=== PATIENT | female | born 1950 | race Caucasian/White ===

== ENCOUNTER 2018-10-22 17:06 | Inpatient (IN) ==
[2018-10-22] MEDS ORDERED: *HR* Metoprolol 5 MG/5 ML VIAL IVP ONE ×2 (21:15→21:17)
[2018-10-22] MEDS ORDERED: Naloxone 0.4 MG/ML INJ IVP PRN (21:28)
[2018-10-22] MEDS ORDERED: *HR* Heparin 5,000 UNIT/ML VIAL IVP PRN ×2 (21:28)
[2018-10-22] MEDS ORDERED: *HR* Heparin 5,000 UNIT/ML VIAL IVP ONE (21:28)
[2018-10-22] MEDS ORDERED: Acetaminophen 325 MG TABLET PO PRN (21:28)
[2018-10-22] MEDS ORDERED: Levalbuterol Neb 1.25 MG/3 ML IH PRN (21:28)
[2018-10-22] MEDS ORDERED: Ondansetron 4 MG/2 ML VIAL IVP PRN (21:28)
[2018-10-22] MEDS ORDERED: Heparin 25,000 UNIT/250 ML D5W 25,000 UNIT/250 ML IV.SOLN IVC SCH (21:30)
[2018-10-22] MEDS ORDERED: Vancomycin (wt based) 1,000 MG VIAL IVPB SCH (22:00)
[2018-10-22] MEDS ORDERED: 0.9 % Sodium Chloride 1,000 ML IVC SCH (22:15)
[2018-10-22 22:31] LABS: Heparin anti-factor XA UFH 0.03 IU/mL (0.30-0.70)
[2018-10-22 22:32] LABS: INR 1.6; Prothrombin Time 18.1 Seconds (9.4-12.1)
[2018-10-22 22:39] LABS: Calcium 8.8 mg/dL (8.6-10.3); Potassium 4.3 mEq/L (3.5-5.1)
[2018-10-22 22:40] LABS: Albumin 3.3 g/dL (3.5-5.7); Albumin/Globulin Ratio 1.1 (1.1-2.2); Bilirubin,Direct 0.2 mg/dL (0.0-0.2); Bilirubin,Indirect 0.3 mg/dL (0.0-1.2); Bilirubin,Total 0.5 mg/dL (0.3-1.0); Globulin 3.1 g/dL (2.4-3.5); Magnesium 1.7 mg/dL (1.6-2.6); Total Protein 6.4 g/dL (6.4-8.9)
[2018-10-22] MEDS: levETIRAcetam 250 MG TABLET PO SCH (23:36)
[2018-10-22] MEDS: 0.9 % Sodium Chloride 1,000 ML IVC SCH (23:36)
[2018-10-22] MEDS: *HR* HYDROcodone/Acet 5/325 mg TABLET PO PRN (23:36)
[2018-10-22] MEDS ORDERED: Amiodarone Premix 360 MG/200 ML BAG IVC SCH (23:45)
[2018-10-22] MEDS ORDERED: Amiodarone Premix 150 MG/100 ML BAG IVPB ONE (23:57)
[2018-10-22] MEDS ORDERED: Amiodarone Premix 360 MG/200 ML BAG IVC ONE (23:57)
[2018-10-23] MEDS ORDERED: ceFAZolin 2,000 MG in Water for inj. (sterile) 20 ML IVP ONE (00:09)
[2018-10-23] MEDS ORDERED: *HR* PHENYLEPHRINE 1,000 MCG/10 ML SYRINGE IVP ONE (00:26)
[2018-10-23] MEDS ORDERED: *HR* Etomidate 20 MG/10 ML AMPUL IVP ONE (00:26)
[2018-10-23] MEDS ORDERED: *HR* FentaNYL (PF) 250 MCG/5 ML VIAL ONE (00:26)
[2018-10-23] MEDS ORDERED: *HR* Rocuronium Bromide 50 MG/5 ML VIAL ONE (00:26)
[2018-10-23] MEDS ORDERED: *HR* Midazolam HCl 5 MG/5 ML VIAL IVP ONE (00:26)
[2018-10-23] MEDS ORDERED: *HR* Amiodarone 150 MG/3 ML VIAL IVPB ONE (00:28)
[2018-10-23] MEDS ORDERED: Amiodarone Premix 360 MG/200 ML BAG IVC ONE (00:29)
[2018-10-23] MEDS ORDERED: Heparin 1,000 UNITS/500 mL 500 ML ONE (01:02)
[2018-10-23] MEDS ORDERED: Ondansetron 4 MG/2 ML VIAL ONE (01:51)
[2018-10-23] MEDS ORDERED: Dexamethasone 4 MG/ML VIAL ONE (01:51)
[2018-10-23] MEDS ORDERED: Naloxone 0.4 MG/ML INJ IVP PRN ×5 (02:19→17:46)
[2018-10-23] MEDS ORDERED: *HR* FentaNYL (PF) 100 MCG/2 ML VIAL IVP PRN ×2 (02:22→17:46)
[2018-10-23] MEDS ORDERED: Artificial Tears SOLN 15 ML BOTTLE BOTH EYES PRN (02:34)
[2018-10-23] MEDS ORDERED: FentaNYL (PF) 1,000 MCG in 0.9 % Sodium Chloride 80 ML IVC SCH (02:45)
[2018-10-23] MEDS: tiZANidine 4 MG TABLET PO SCH ×4 (02:49→21:50)
[2018-10-23] MEDS: diazePAM 5 MG TABLET PO SCH ×2 (02:50→10:52)
[2018-10-23] MEDS: Budesonide/Formoterol 160/4.5 1 PUFF INH IH SCH ×3 (02:55→19:57)
[2018-10-23 02:57] LABS: ABG Base Excess -4 mEq/L (-2 to 3); ABG HCO3 22 mEq/L (21-27); ABG Oxygen Saturation 95 % (95-98); ABG PCO2 44 mmHg (35-45); ABG PO2 85 mmHg (85-104); ABG TCO2 23 mEq/L (20-26); Blood Gas Modality ASSIST CONTROL; Blood Gas VT 500 cc
[2018-10-23] MEDS: Piperacillin/Tazobactam 3.375 GM in 0.9 % Sodium Chloride Mini Bag 100 ML IVPB SCH ×3 (03:09→15:13)
[2018-10-23] MEDS: Artificial Tears SOLN 15 ML BOTTLE BOTH EYES SCH ×4 (04:34→16:28)
[2018-10-23 04:40] LABS: ABG Base Excess -4 mEq/L (-2 to 3); ABG HCO3 21 mEq/L (21-27); ABG Oxygen Saturation 96 % (95-98); ABG PCO2 40 mmHg (35-45); ABG PH 7.33 pH Units (7.32-7.45); ABG PO2 89 mmHg (85-104); ABG TCO2 23 mEq/L (20-26); Blood Gas Modality ASSIST CONTROL; Blood Gas VT 500 cc
[2018-10-23 04:43] LABS: Hematocrit 27.3 % (35.3-44.9); Hemoglobin 8.9 g/dL (11.5-15.4); Mean Corpuscular HGB Conc 32.6 g/dL (31.6-35.5); Mean Platelet Volume 8.8 fL (9.4-12.4); Platelet Count 368 K/mcL (140-400)
[2018-10-23 04:44] LABS: Basophils # 0.1 K/mcL (0.0-0.2); Basophils % 0.2 %; Immature Granulocytes % 0.8 % (0-4); Lymphocytes # 0.5 K/mcL (0.6-4.6); Lymphocytes % 1.9 %; Mean Corpuscular Hemoglobin 30.1 pg (28.0-33.3); Mean Corpuscular Volume 92.2 fL (83.0-100.0); Monocytes # 0.9 K/mcL (0.0-1.3); Monocytes % 3.4 %; Neutrophils # 24.6 K/mcL (1.6-8.9); Red Blood Count 2.96 M/mcL (3.82-4.97); Segmented Neutrophils % 93.7 %; White Blood Count 26.2 K/mcL (4.3-11.1)
[2018-10-23 04:51] LABS: INR 1.6; Prothrombin Time 17.9 Seconds (9.4-12.1)
[2018-10-23 04:54] LABS: Activated Partial Thrombo Time 38.5 Seconds (26.0-36.0)
[2018-10-23 05:08] LABS: Platelet Estimate Normal (Normal)
[2018-10-23] MEDS: 0.9 % Sodium Chloride 1,000 ML IVC SCH ×4 (08:07→10:54)
[2018-10-23] MEDS ORDERED: Pantoprazole 40 MG VIAL IVP SCH (09:00)
[2018-10-23] MEDS ORDERED: levoFLOXacin 750 MG/150 ML 750 MG/150 ML BAG IVPB SCH (09:00)
[2018-10-23] MEDS ORDERED: Sucralfate 1 GM TABLET PO SCH (09:00)
[2018-10-23] MEDS ORDERED: Lactobacillus 1 EACH CAP.SPRINK PO SCH (09:00)
[2018-10-23] MEDS ORDERED: Chlorhexidine Rinse 15 ML MOUTHWASH MM SCH (09:00)
[2018-10-23] MEDS ORDERED: diazePAM 5 MG TABLET PO SCH (09:00)
[2018-10-23] MEDS: *HR* HYDROcodone/Acet 5/325 mg TABLET PO PRN (10:52)
[2018-10-23] MEDS: levETIRAcetam 250 MG TABLET PO SCH ×2 (10:53→21:51)
[2018-10-23 14:44] LABS: Bilirubin,Urine Negative (Negative); Blood,Urine Moderate (Negative); Clarity,Urine Cloudy (Clear); Color,Urine Yellow (Yellow); Glucose,Urine (UA) Normal (Normal); Ketones,Urine Negative (Negative); Leukocyte Esterase,Urine Small (Negative); Nitrite,Urine Negative (Negative); Protein,Urine Trace mg/dL (Neg-Trace); Specific Gravity,Urine 1.023 (1.010-1.025); Urobilinogen,Urine Normal (Normal)
[2018-10-23 14:46] LABS: Bacteria,Urine None Seen per hpf (None-Few); Hyaline Casts,Urine None Seen per lpf (None-Few); Squamous Epithelial Cell,Urine Many per lpf (None-Few); WBC,Urine 15-30 per hpf (0-3)
[2018-10-23] MEDS ORDERED: Ondansetron 4 MG/2 ML VIAL IVP PRN (17:46)
[2018-10-23] MEDS: Sucralfate 1 GM TABLET PO SCH (21:50)
[2018-10-23] MEDS: Lactobacillus 1 EACH CAP.SPRINK PO SCH (21:50)
[2018-10-24] MEDS: Piperacillin/Tazobactam 3.375 GM in 0.9 % Sodium Chloride Mini Bag 100 ML IVPB SCH ×3 (00:36→14:49)
[2018-10-24] MEDS: *HR* HYDROcodone/Acet 5/325 mg TABLET PO PRN ×2 (01:05→12:37)
[2018-10-24 03:26] LABS: Hematocrit 24.4 % (35.3-44.9); Hemoglobin 7.9 g/dL (11.5-15.4); Lymphocytes # 0.8 K/mcL (0.6-4.6); Lymphocytes % 3.6 %; Mean Corpuscular HGB Conc 32.4 g/dL (31.6-35.5); Mean Corpuscular Hemoglobin 29.6 pg (28.0-33.3); Mean Corpuscular Volume 91.4 fL (83.0-100.0); Mean Platelet Volume 8.8 fL (9.4-12.4); Monocytes % 4.9 %; Platelet Count 354 K/mcL (140-400); Red Blood Count 2.67 M/mcL (3.82-4.97); Red Cell Distribution Width 13.2 % (11.5-14.5); Segmented Neutrophils % 90.5 %; White Blood Count 23.3 K/mcL (4.3-11.1)
[2018-10-24 03:32] LABS: Monocytes # 1.1 K/mcL (0.0-1.3); Neutrophils # 21.1 K/mcL (1.6-8.9)
[2018-10-24 03:41] LABS: BUN/Creatinine Ratio 15 (6-26); Blood Urea Nitrogen 16 mg/dL (8-23); Calcium 8.6 mg/dL (8.6-10.3); Carbon Dioxide 25 mEq/L (23-29); Chloride 98 mEq/L (98-107); Glucose 151 mg/dL (70-105); Osmolality,Calculated 278 (280-300); Potassium 4.1 mEq/L (3.5-5.1); Sodium 132 mEq/L (136-145); eGFR For African Americans > 60 (> 60); eGFR For Non-African Americans 52 (> 60)
[2018-10-24 03:52] LABS: Platelet Estimate Normal (Normal)
[2018-10-24] MEDS: Budesonide/Formoterol 160/4.5 1 PUFF INH IH SCH ×2 (07:37→19:39)
[2018-10-24] MEDS: levETIRAcetam 250 MG TABLET PO SCH ×2 (08:13→21:10)
[2018-10-24] MEDS: Sucralfate 1 GM TABLET PO SCH ×2 (08:13→21:11)
[2018-10-24] MEDS: Lactobacillus 1 EACH CAP.SPRINK PO SCH ×2 (08:13→21:11)
[2018-10-24] MEDS: diazePAM 5 MG TABLET PO SCH (08:13)
[2018-10-24] MEDS: tiZANidine 4 MG TABLET PO SCH ×3 (08:13→21:12)
[2018-10-25] MEDS: Piperacillin/Tazobactam 3.375 GM in 0.9 % Sodium Chloride Mini Bag 100 ML IVPB SCH ×4 (00:54→23:45)
[2018-10-25] MEDS: *HR* HYDROcodone/Acet 5/325 mg TABLET PO PRN ×3 (01:10→22:36)
[2018-10-25 04:52] LABS: Basophils % 0.1 %; Hemoglobin 7.4 g/dL (11.5-15.4); Immature Granulocytes % 0.8 % (0-4); Lymphocytes # 1.6 K/mcL (0.6-4.6); Lymphocytes % 9.5 %; Mean Corpuscular HGB Conc 32.2 g/dL (31.6-35.5); Mean Corpuscular Hemoglobin 29.5 pg (28.0-33.3); Mean Corpuscular Volume 91.6 fL (83.0-100.0); Mean Platelet Volume 9.1 fL (9.4-12.4); Monocytes # 0.9 K/mcL (0.0-1.3); Neutrophils # 14.5 K/mcL (1.6-8.9); Platelet Count 370 K/mcL (140-400); Red Blood Count 2.51 M/mcL (3.82-4.97); Red Cell Distribution Width 13.4 % (11.5-14.5); Segmented Neutrophils % 84.6 %; White Blood Count 17.1 K/mcL (4.3-11.1)
[2018-10-25 05:07] LABS: BUN/Creatinine Ratio 16 (6-26); Blood Urea Nitrogen 16 mg/dL (8-23); Calcium 8.3 mg/dL (8.6-10.3); Carbon Dioxide 27 mEq/L (23-29); Chloride 100 mEq/L (98-107); Glucose 112 mg/dL (70-105); Magnesium 1.8 mg/dL (1.6-2.6); Osmolality,Calculated 270 (280-300); Phosphorous 2.6 mg/dL (2.7-4.5); Potassium 3.8 mEq/L (3.5-5.1); Sodium 129 mEq/L (136-145); eGFR For African Americans > 60 (> 60); eGFR For Non-African Americans 57 (> 60)
[2018-10-25] MEDS: Acetaminophen 325 MG TABLET PO PRN ×3 (05:22→23:45)
[2018-10-25] MEDS: Budesonide/Formoterol 160/4.5 1 PUFF INH IH SCH ×2 (07:27→20:35)
[2018-10-25] MEDS: levETIRAcetam 250 MG TABLET PO SCH ×2 (08:18→21:06)
[2018-10-25] MEDS: tiZANidine 4 MG TABLET PO SCH ×3 (08:18→21:07)
[2018-10-25] MEDS: diazePAM 5 MG TABLET PO SCH (08:18)
[2018-10-25] MEDS: Lactobacillus 1 EACH CAP.SPRINK PO SCH ×2 (08:18→21:06)
[2018-10-25] MEDS: Sucralfate 1 GM TABLET PO SCH ×2 (08:18→21:04)
[2018-10-25] MEDS ORDERED: levoFLOXacin 750 MG/150 ML 750 MG/150 ML BAG IVPB SCH (09:00)
[2018-10-26] MEDS: *HR* HYDROcodone/Acet 5/325 mg TABLET PO PRN ×3 (04:45→20:52)
[2018-10-26] MEDS: Levalbuterol Neb 1.25 MG/3 ML IH PRN ×2 (07:21→19:52)
[2018-10-26] MEDS: Budesonide/Formoterol 160/4.5 1 PUFF INH IH SCH ×2 (07:21→19:52)
[2018-10-26] MEDS: Piperacillin/Tazobactam 3.375 GM in 0.9 % Sodium Chloride Mini Bag 100 ML IVPB SCH ×3 (07:59→23:36)
[2018-10-26] MEDS: tiZANidine 4 MG TABLET PO SCH ×3 (08:00→20:52)
[2018-10-26] MEDS: diazePAM 5 MG TABLET PO SCH (08:00)
[2018-10-26] MEDS: levETIRAcetam 250 MG TABLET PO SCH ×2 (08:00→20:53)
[2018-10-26] MEDS: Lactobacillus 1 EACH CAP.SPRINK PO SCH ×2 (08:00→20:53)
[2018-10-26] MEDS: Sucralfate 1 GM TABLET PO SCH ×2 (08:00→20:54)
[2018-10-26 08:57] LABS: Basophils % 0.2 %; Immature Granulocytes % 0.5 % (0-4); Lymphocytes % 31.1 %
[2018-10-26] MEDS ORDERED: Aminoglycoside Consult 1 EACH MC ONE (08:59)
[2018-10-26 09:24] LABS: Eosinophils # 0.3 K/mcL (0.0-0.6); Eosinophils % 1.9 %; Hematocrit 31.3 % (35.3-44.9); Hemoglobin 10.2 g/dL (11.5-15.4); Lymphocytes # 4.2 K/mcL (0.6-4.6); Mean Corpuscular HGB Conc 32.6 g/dL (31.6-35.5); Mean Corpuscular Hemoglobin 30.1 pg (28.0-33.3); Mean Corpuscular Volume 92.3 fL (83.0-100.0); Mean Platelet Volume 8.8 fL (9.4-12.4); Monocytes # 1.2 K/mcL (0.0-1.3); Monocytes % 8.8 %; Neutrophils # 7.7 K/mcL (1.6-8.9); Platelet Count 561 K/mcL (140-400); Red Blood Count 3.39 M/mcL (3.82-4.97); Red Cell Distribution Width 13.5 % (11.5-14.5); Segmented Neutrophils % 57.5 %; White Blood Count 13.4 K/mcL (4.3-11.1)
[2018-10-26 09:51] LABS: BUN/Creatinine Ratio 11 (6-26); Blood Urea Nitrogen 9 mg/dL (8-23); Calcium 9.1 mg/dL (8.6-10.3); Carbon Dioxide 31 mEq/L (23-29); Chloride 98 mEq/L (98-107); Glucose 107 mg/dL (70-105); Magnesium 1.7 mg/dL (1.6-2.6); Osmolality,Calculated 287 (280-300); Phosphorous 2.5 mg/dL (2.7-4.5); Potassium 3.1 mEq/L (3.5-5.1); Sodium 139 mEq/L (136-145); eGFR For African Americans > 60 (> 60); eGFR For Non-African Americans > 60 (> 60)
[2018-10-26] MEDS: Acetaminophen 325 MG TABLET PO PRN (15:05)
[2018-10-27] MEDS: Acetaminophen 325 MG TABLET PO PRN ×2 (02:27→14:10)
[2018-10-27 05:02] LABS: Basophils % 0.3 %; Eosinophils # 0.6 K/mcL (0.0-0.6); Eosinophils % 4.5 %; Hematocrit 25.6 % (35.3-44.9); Immature Granulocytes % 0.4 % (0-4); Lymphocytes # 3.1 K/mcL (0.6-4.6); Lymphocytes % 24.1 %; Mean Corpuscular HGB Conc 32.8 g/dL (31.6-35.5); Mean Corpuscular Hemoglobin 29.6 pg (28.0-33.3); Mean Corpuscular Volume 90.1 fL (83.0-100.0); Mean Platelet Volume 8.4 fL (9.4-12.4); Monocytes # 1.3 K/mcL (0.0-1.3); Monocytes % 10.1 %; Neutrophils # 7.7 K/mcL (1.6-8.9); Platelet Count 458 K/mcL (140-400); Red Blood Count 2.84 M/mcL (3.82-4.97); Red Cell Distribution Width 13.3 % (11.5-14.5); Segmented Neutrophils % 60.6 %; White Blood Count 12.7 K/mcL (4.3-11.1)
[2018-10-27 05:19] LABS: Hemoglobin 8.4 g/dL (11.5-15.4)
[2018-10-27 05:36] LABS: BUN/Creatinine Ratio 20 (6-26); Blood Urea Nitrogen 15 mg/dL (8-23); Calcium 8.6 mg/dL (8.6-10.3); Carbon Dioxide 30 mEq/L (23-29); Chloride 100 mEq/L (98-107); Glucose 106 mg/dL (70-105); Osmolality,Calculated 283 (280-300); Sodium 136 mEq/L (136-145); eGFR For African Americans > 60 (> 60); eGFR For Non-African Americans > 60 (> 60)
[2018-10-27] MEDS: Levalbuterol Neb 1.25 MG/3 ML IH PRN ×2 (07:17→20:26)
[2018-10-27] MEDS: Budesonide/Formoterol 160/4.5 1 PUFF INH IH SCH ×2 (07:18→20:23)
[2018-10-27] MEDS: Lactobacillus 1 EACH CAP.SPRINK PO SCH ×2 (08:22→20:26)
[2018-10-27] MEDS: levETIRAcetam 250 MG TABLET PO SCH ×2 (08:23→20:26)
[2018-10-27] MEDS: Sucralfate 1 GM TABLET PO SCH ×2 (08:23→20:26)
[2018-10-27] MEDS: tiZANidine 4 MG TABLET PO SCH ×3 (08:23→20:26)
[2018-10-27] MEDS: Piperacillin/Tazobactam 3.375 GM in 0.9 % Sodium Chloride Mini Bag 100 ML IVPB SCH ×2 (08:24→15:31)
[2018-10-27] MEDS: diazePAM 5 MG TABLET PO SCH (08:24)
[2018-10-27 16:42] LABS: Hematocrit 26.6 % (35.3-44.9); Hemoglobin 8.7 g/dL (11.5-15.4)
[2018-10-28] MEDS: Piperacillin/Tazobactam 3.375 GM in 0.9 % Sodium Chloride Mini Bag 100 ML IVPB SCH ×2 (00:03→10:11)
[2018-10-28] MEDS: *HR* HYDROcodone/Acet 5/325 mg TABLET PO PRN (00:03)
[2018-10-28 01:20] LABS: % Iron Saturation 6 % (15-50); Ferritin 101 ng/mL (10-120); Iron 14 mcg/dL (50-170); Transferrin 167 mg/dL (203-362)
[2018-10-28 01:36] LABS: Basophils % 0.3 %; Eosinophils # 0.6 K/mcL (0.0-0.6); Eosinophils % 3.8 %; Hematocrit 24.5 % (35.3-44.9); Hemoglobin 8.2 g/dL (11.5-15.4); Immature Granulocytes % 0.4 % (0-4); Lymphocytes # 3.8 K/mcL (0.6-4.6); Lymphocytes % 23.8 %; Mean Corpuscular HGB Conc 33.5 g/dL (31.6-35.5); Mean Corpuscular Volume 89.7 fL (83.0-100.0); Mean Platelet Volume 8.5 fL (9.4-12.4); Monocytes # 1.5 K/mcL (0.0-1.3); Monocytes % 9.1 %; Platelet Count 431 K/mcL (140-400); Red Blood Count 2.73 M/mcL (3.82-4.97); Red Cell Distribution Width 13.5 % (11.5-14.5); Segmented Neutrophils % 62.6 %
[2018-10-28] MEDS: Acetaminophen 325 MG TABLET PO PRN (03:57)
[2018-10-28 07:13] VITALS: BP 117/68
[2018-10-28] MEDS: Budesonide/Formoterol 160/4.5 1 PUFF INH IH SCH (07:55)
[2018-10-28 08:30] LABS: Hemoglobin 10.1 g/dL (11.5-15.4)
[2018-10-28] MEDS: tiZANidine 4 MG TABLET PO SCH (10:08)
[2018-10-28] MEDS: Lactobacillus 1 EACH CAP.SPRINK PO SCH (10:09)
[2018-10-28] MEDS: Sucralfate 1 GM TABLET PO SCH (10:09)
[2018-10-28] MEDS: diazePAM 5 MG TABLET PO SCH (10:09)
[2018-10-28] MEDS: levETIRAcetam 250 MG TABLET PO SCH (10:09)
== END 2018-10-28 14:22 | disposition home health service (06) | DRG 854 ==
LOC: 2NENU → SUATTDRO 21:28 → ICNU 10-23 01:14 → 2NENU 10-23 17:14
PROVIDERS: ADMIT Internal Medicine Nephrology; ATTEND Pharmacist

== ENCOUNTER 2018-11-02 13:11 | Inpatient (IN) ==
[~2018-11-02 13:11] MED LIST: Vancomycin (wt based) 1,000 MG VIAL IVPB ONE
--- NOTE | 2018-11-02 13:43 | Emergency Department Note ---
Disposition Clinical Impression: SIRS (systemic inflammatory response syndrome) Hypotension Qualifiers: Hypotension type: unspecified hypotension type Qualified Code(s): I95.9 - Leukocytosis Qualifiers: Qualified Code(s): D72.829 - Anemia Qualifiers: Anemia type: unspecified type Qualified Code(s): D64.9 - Anemia, unspecified Disposition: Admitted As Inpatient Condition: Good Time of Disposition: 00:00 General Adult HPI - General Chief complaint: ED Shortness of Breath/Dyspnea Stated complaint: Fever,weakness,had thorosentitis end september Time Seen by Provider: 11/02/18 13:36 Source: patient, family Limitations: no limitations Vital Signs Reviewed: Yes - History of Present Illness HPI Narrative: 68 y/o WF s/p cabg approx 1 wk, by Dr. Louis. Pt was dc on 10/28. No follow appt yet. PT states that she yesterday she felt bloated and filled like she was filled with water. Pt was uncomfortable last night. This morning she had temp this am. Dr. Louis office refereed her to the ED. PT states that nose is dried out and sore throat. PT felt shaky and weak. Pt states that her bp normally is low. PT is now having pain in her back, neck. PT was recently dc. This morning her tem was 99.7 and then 101 Pt presents to the ED 150 pounds Pt has chronic back pain sec to accident. Denies n/v/c/sore throat and dried nose resolved. PT is drinking water. Positive: coughing = this morning yellow. Denies sick contact. pt has yeast infection from antibiotics. Pt was placed on abx after being seen for sob. They were told she had an infection at the beginning of September. PT returned multiple times where she was seen in the ED. PT hr began racing. PT was then transferred to [place]. Pt is a smoker. Pt was in her neck in the morning and then resolved. Pt has hx of anxiety. Currently new pain. Pain Scale: 0 Improves with: nothing Worsens with: nothing Associated symptoms: Reports: fever/chills - Related Data Home Medications Medication Instructions Recorded Confirmed Duloxetine HCl [Cymbalta] 60 mg PO DAILY 02/27/15 11/02/18 Montelukast [Singulair] 10 mg PO DAILY@2100 10/08/18 11/02/18 Tizanidine HCl [Zanaflex] 4 mg PO QID 10/08/18 11/02/18 LevETIRAcetam [Keppra] 500 mg PO QID 10/22/18 11/02/18 Cholecalciferol (D-3) [Vitamin D] 1,000 unit PO DAILY 10/23/18 11/02/18 diazePAM [Valium] 5 mg PO HS 10/23/18 11/02/18 HYDROcodone/Acet 10/325 mg [[place] 1 tab PO QID 11/02/18 11/02/18 10-325 mg] Previous Rx's Medication Instructions Recorded Budesonide/Formoterol 160/4.5 2 puff IH BIDR 30 Days #1 bottle 10/28/18 [Symbicort 160/4.5] Lactobacillus [Culturelle] 1 each PO BID #10 cap.sprink 10/28/18 Aspirin 81 mg PO DAILY #30 tab.chew 11/12/18 Colchicine [Colcrys] 0.6 mg PO DAILY #7 tablet 11/12/18 Diltiazem CD (24hr) [Cardizem CD] 120 mg PO DAILY #60 cap.er.24h 11/12/18 Docusate [Colace] 100 mg PO BID@0800,1700 #60 capsule 11/12/18 Ferrous Sulfate 325 mg PO DAILY@0800 #90 tablet 11/12/18 Metoprolol [Lopressor] 75 mg PO BID 30 Days #90 tablet 11/12/18 Allergies Allergy/AdvReac Type Severity Reaction Status Date / Time Sulfa (Sulfonamide AdvReac Nausea Verified 10/23/18 16:28 Antibiotics) All systems ED: reviewed and negative except as stated. Past Medical History - Past Medical History Source: patient Medical history: Reports: COPD, hypertension Surgical history: Reports: appendectomy, hysterectomy Psychiatric history: Reports: depression [employer] history: Reports: bilateral tubal ligation - Social History Smoking Status: Current every day smoker Smokeless Tobacco Status: No Alcohol use: Reports: none Drug use: Reports: none Physical Exam - General Limitations: no limitations General appearance: alert, in no apparent distress - Head Head exam: atraumatic, normocephalic, normal inspection - Eye Eye exam: Present: normal appearance - ENT ENT exam: normal exam, normal oropharynx, mucous membranes dry - Neck Neck exam: Present: normal inspection, trachea midline. Absent: meningismus - Chest Chest inspection: Present: normal inspection - Respiratory Respiratory exam: Present: normal lung sounds bilaterally, prolonged expiratory phase. Absent: respiratory distress, stridor, accessory muscle use - Cardiovascular Cardiovascular exam: Present: normal rhythm, normal heart sounds - Abdominal Exam Abdominal exam: Present: soft, Non-Tender, normal bowel sounds. Absent: tenderness, trauma - Extremities Exam Extremities exam: Present: normal inspection - Expanded Lower Extremity Exam Neurovascular/Tendon exam: Present: normal capillary refill. Absent: pulse deficit, motor deficit, sensory deficit - Back Exam Back exam: Present: normal inspection. Absent: CVA tenderness (R), CVA tenderness (L) - Neurological Exam Neurological exam: Present: alert, oriented X3, CN II-XII intact, normal gait. Absent: motor sensory deficit - Psychiatric Psychiatric exam: Present: normal affect, normal mood, agitated - Skin Skin exam: Present: warm, dry, intact, normal color Course Course Narrative: PT daughter initially present during interview. Once the daughter left pt expressed her desire to be DNR and did not want any additional testing. Pt initially refused medications and imaging. Pt stated that she understood the ddx, dx and concern for sepsis. Pt expressed a desire to sign against medical advice with the understanding that it could result in , disability or decompensation. Once the daughter returned and they spoke the pt did agree with admission and ct chest. PT was admitted and hospitalist will fu results of ct chest. Vital Signs Temperature 99.1 F 11/02/18 13:22 Pulse Rate 72 11/02/18 13:22 Respiratory Rate 18 11/02/18 13:22 Blood Pressure 71/43 11/02/18 13:22 O2 Sat by Pulse Oximetry 93 11/02/18 13:22 Temperature 97.5 F L 11/12/18 07:22 Pulse Rate 64 11/12/18 11:44 Respiratory Rate 17 11/12/18 11:44 Blood Pressure 146/72 11/12/18 11:44 O2 Sat by Pulse Oximetry 98 11/12/18 11:44 Oxygen Delivery Oxygen Delivery Room Air Medical Decision Making - MDM Narrative Medical decision making narrative: PT did admits she was non compliant with abx that she received upon dc. Differential Diagnosis Abscess, Bronchitis, Cellulitis, Encephalitis, Endocarditis, Enteritis, Influenza, Lyme disease, Meningitis, Meningococcemia, MRSA skin infection, Otitis media, Pericarditis, Perispinal abscess, Peritonsillar abscess, Pharyngitis, strep, Pharyngitis, viral, Pneumonia, Prostatitis, Pyelonephritis, Retropharyngeal abscess, Sepsis, Septic shock, Severe sepsis, Sinusitis, Strep throat, Upper resp infection, Urinary tract infection, Viral syndrome Admit Note I have spoken with the patient and/or caregivers. I have explained the patient's condition, diagnoses and treatment plan based on the information available to me at this time. I have answered the patient's and/or caregiver's questions and addressed any concerns. The patient and/or caregivers have as good an understanding of the patient's diagnosis, condition and treatment plan as can be expected at this point. The patient has been stabilized within the capability of the emergency department. The patient will be transported for further care and management or will be moved to an observation or inpatient service. I have communicated with the staff or medical practitioner taking over this patient's care. - Lab Data Result diagrams: 11/12/18 05:47 11/12/18 05:47 Lab Results 11/02/18 11/02/18 11/02/18 Range/Units 13:43 13:43 13:43 WBC 18.6 H (4.3-11.1) K/mcL RBC 2.75 L (3.82-4.97) M/mcL Hgb 8.1 L D (11.5-15.4) g/dL Hct 25.7 L (35.3-44.9) % MCV 93.5 (83.0-100.0) fL MCH 29.5 (28.0-33.3) pg MCHC 31.5 L (31.6-35.5) g/dL RDW 13.4 (11.5-14.5) % Plt Count 465 H (140-400) K/mcL MPV 8.8 L (9.4-12.4) fL Immature Gran % 0.5 (0-4) % Seg Neutrophils % 76.2 % Lymphocytes % 13.5 % Monocytes % 9.0 % Eosinophils % 0.6 % Basophils % 0.2 % Neutrophils # 14.1 H (1.6-8.9) K/mcL Lymphocytes # 2.5 (0.6-4.6) K/mcL Monocytes # 1.7 H (0.0-1.3) K/mcL Eosinophils # 0.1 (0.0-0.6) K/mcL Basophils # 0.0 (0.0-0.2) K/mcL PT 12.9 H (9.4-12.1) Seconds INR 1.1 APTT 35.0 (26.0-36.0) Seconds VBG pH (7.32-7.42) pH Units VBG pCO2 (41-51) mmHg VBG pO2 (25-50) mmHg VBG HCO3 (21-27) mEq/L Sodium 131 L (136-145) mEq/L Potassium 3.3 L (3.5-5.1) mEq/L Chloride 98 (98-107) mEq/L Carbon Dioxide 24 (23-29) mEq/L BUN 13 (8-23) mg/dL Creatinine 0.96 (0.60-1.20) mg/dL Est GFR ( Amer) > 60 (> 60) Est GFR (Non-Af Amer) 57 L (> 60) BUN/Creatinine Ratio 14 (6-26) Glucose 131 H (70-105) mg/dL Calculated Osmolality 274 L (280-300) Lactic Acid (0.5-2.2) mmol/L Calcium 8.6 (8.6-10.3) mg/dL Phosphorus 3.3 (2.7-4.5) mg/dL Magnesium 1.5 L (1.6-2.6) mg/dL Total Bilirubin 0.5 (0.3-1.0) mg/dL Direct Bilirubin 0.1 (0.0-0.2) mg/dL Indirect Bilirubin 0.4 (0.0-1.2) mg/dL AST 8 L (13-39) Units/L ALT 5 L (7-52) Units/L Alkaline Phosphatase 63 (34-104) Units/L Troponin I < 0.03 (< 0.04) ng/mL B-Natriuretic Peptide (Less than 100) pg/mL Serum Total Protein 6.1 L (6.4-8.9) g/dL Albumin 3.2 L (3.5-5.7) g/dL Globulin 2.9 (2.4-3.5) g/dL Albumin/Globulin Ratio 1.1 (1.1-2.2) Urine Color (Yellow) Urine Clarity (Clear) Urine pH (5.0-8.0) pH Units Ur Specific [place] (1.010-1.025) Urine Protein (Neg-Trace) mg/dL Urine Glucose (UA) (Normal) mg/dL Urine Ketones (Negative) mg/dL Urine Blood (Negative) Urine Nitrite (Negative) Urine Bilirubin (Negative) Urine Urobilinogen (Normal) mg/dL Ur Leukocyte Esterase (Negative) Urine Microscopic RBC (0-3) per hpf Urine Microscopic WBC (0-3) per hpf Ur Squamous Epith Cells (None-Few) per lpf Urine Bacteria (None-Few) per hpf Hyaline Casts (None-Few) per lpf Ur Culture Indicated? (NO) 11/02/18 11/02/18 11/02/18 Range/Units 13:43 14:10 14:28 WBC (4.3-11.1) K/mcL RBC (3.82-4.97) M/mcL Hgb (11.5-15.4) g/dL Hct (35.3-44.9) % MCV (83.0-100.0) fL MCH (28.0-33.3) pg MCHC (31.6-35.5) g/dL RDW (11.5-14.5) % Plt Count (140-400) K/mcL MPV (9.4-12.4) fL Immature Gran % (0-4) % Seg Neutrophils % % Lymphocytes % % Monocytes % % Eosinophils % % Basophils % % Neutrophils # (1.6-8.9) K/mcL Lymphocytes # (0.6-4.6) K/mcL Monocytes # (0.0-1.3) K/mcL Eosinophils # (0.0-0.6) K/mcL Basophils # (0.0-0.2) K/mcL PT (9.4-12.1) Seconds INR APTT (26.0-36.0) Seconds VBG pH (7.32-7.42) pH Units VBG pCO2 (41-51) mmHg VBG pO2 (25-50) mmHg VBG HCO3 (21-27) mEq/L Sodium (136-145) mEq/L Potassium (3.5-5.1) mEq/L Chloride (98-107) mEq/L Carbon Dioxide (23-29) mEq/L BUN (8-23) mg/dL Creatinine (0.60-1.20) mg/dL Est GFR ( Amer) (> 60) Est GFR (Non-Af Amer) (> 60) BUN/Creatinine Ratio (6-26) Glucose (70-105) mg/dL Calculated Osmolality (280-300) Lactic Acid 1.6 (0.5-2.2) mmol/L Calcium (8.6-10.3) mg/dL Phosphorus (2.7-4.5) mg/dL Magnesium (1.6-2.6) mg/dL Total Bilirubin (0.3-1.0) mg/dL Direct Bilirubin (0.0-0.2) mg/dL Indirect Bilirubin (0.0-1.2) mg/dL AST (13-39) Units/L ALT (7-52) Units/L Alkaline Phosphatase (34-104) Units/L Troponin I (< 0.04) ng/mL B-Natriuretic Peptide 422 H (Less than 100) pg/mL Serum Total Protein (6.4-8.9) g/dL Albumin (3.5-5.7) g/dL Globulin (2.4-3.5) g/dL Albumin/Globulin Ratio (1.1-2.2) Urine Color Yellow (Yellow) Urine Clarity Clear (Clear) Urine pH 5.5 (5.0-8.0) pH Units Ur Specific [place] 1.020 (1.010-1.025) Urine Protein Trace (Neg-Trace) mg/dL Urine Glucose (UA) Normal (Normal) mg/dL Urine Ketones Negative (Negative) mg/dL Urine Blood Large H (Negative) Urine Nitrite Negative (Negative) Urine Bilirubin Negative (Negative) Urine Urobilinogen Normal (Normal) mg/dL Ur Leukocyte Esterase Negative (Negative) Urine Microscopic RBC 5-15 H (0-3) per hpf Urine Microscopic WBC 3-5 H (0-3) per hpf Ur Squamous Epith Cells Many H (None-Few) per lpf Urine Bacteria None Seen (None-Few) per hpf Hyaline Casts None Seen (None-Few) per lpf Ur Culture Indicated? NO (NO) 11/02/18 11/03/18 11/03/18 Range/Units 15:19 05:40 05:40 WBC 17.7 H (4.3-11.1) K/mcL RBC 2.27 L (3.82-4.97) M/mcL Hgb 6.8 L (11.5-15.4) g/dL Hct 20.9 L (35.3-44.9) % MCV 92.1 (83.0-100.0) fL MCH 30.0 (28.0-33.3) pg MCHC 32.5 (31.6-35.5) g/dL RDW 13.2 (11.5-14.5) % Plt Count 459 H (140-400) K/mcL MPV 9.0 L (9.4-12.4) fL Immature Gran % 0.4 (0-4) % Seg Neutrophils % 82.2 % Lymphocytes % 8.5 % Monocytes % 8.2 % Eosinophils % 0.5 % Basophils % 0.2 % Neutrophils # 14.5 H (1.6-8.9) K/mcL Lymphocytes # 1.5 (0.6-4.6) K/mcL Monocytes # 1.4 H (0.0-1.3) K/mcL Eosinophils # 0.1 (0.0-0.6) K/mcL Basophils # 0.0 (0.0-0.2) K/mcL PT (9.4-12.1) Seconds INR APTT (26.0-36.0) Seconds VBG pH 7.36 (7.32-7.42) pH Units VBG pCO2 44 (41-51) mmHg VBG pO2 < 17 L (25-50) mmHg VBG HCO3 25 (21-27) mEq/L Sodium 138 (136-145) mEq/L Potassium 3.2 L (3.5-5.1) mEq/L Chloride 100 (98-107) mEq/L Carbon Dioxide 24 (23-29) mEq/L BUN 12 (8-23) mg/dL Creatinine 0.90 (0.60-1.20) mg/dL Est GFR ( Amer) > 60 (> 60) Est GFR (Non-Af Amer) > 60 (> 60) BUN/Creatinine Ratio 13 (6-26) Glucose 124 H (70-105) mg/dL Calculated Osmolality 287 (280-300) Lactic Acid (0.5-2.2) mmol/L Calcium 8.3 L (8.6-10.3) mg/dL Phosphorus (2.7-4.5) mg/dL Magnesium (1.6-2.6) mg/dL Total Bilirubin 0.5 (0.3-1.0) mg/dL Direct Bilirubin (0.0-0.2) mg/dL Indirect Bilirubin (0.0-1.2) mg/dL AST 7 L (13-39) Units/L ALT 4 L (7-52) Units/L Alkaline Phosphatase 61 (34-104) Units/L Troponin I (< 0.04) ng/mL B-Natriuretic Peptide (Less than 100) pg/mL Serum Total Protein 5.5 L (6.4-8.9) g/dL Albumin 2.9 L (3.5-5.7) g/dL Globulin 2.6 (2.4-3.5) g/dL Albumin/Globulin Ratio 1.1 (1.1-2.2) Urine Color (Yellow) Urine Clarity (Clear) Urine pH (5.0-8.0) pH Units Ur Specific [place] (1.010-1.025) Urine Protein (Neg-Trace) mg/dL Urine Glucose (UA) (Normal) mg/dL Urine Ketones (Negative) mg/dL Urine Blood (Negative) Urine Nitrite (Negative) Urine Bilirubin (Negative) Urine Urobilinogen (Normal) mg/dL Ur Leukocyte Esterase (Negative) Urine Microscopic RBC (0-3) per hpf Urine Microscopic WBC (0-3) per hpf Ur Squamous Epith Cells (None-Few) per lpf Urine Bacteria (None-Few) per hpf Hyaline Casts (None-Few) per lpf Ur Culture Indicated? (NO) Critical Care Time Critical Care Time: Yes Total Critical Care Time: 40 Attestation: Total critical care time documented does not include time spent on separately billed procedures or the services of residents, students, nurses or physician assistants. I personally saw and examined the patient. I have reviewed all d iagnostic interpretations and treatment plans as written. I was present for the araujo portions of any procedures performed and the inclusive time noted in any critical care statement. Critical care time includes patient management by me, time spent at the patients bedside, time to review lab and imaging results, discussing patient care, documentation in the medical record, and time spent with the family or caregiver.
[2018-11-02 14:35] LABS: Basophils % 0.2 %; Eosinophils # 0.1 K/mcL (0.0-0.6); Eosinophils % 0.6 %; Hematocrit 25.7 % (35.3-44.9); Immature Granulocytes % 0.5 % (0-4); Lymphocytes # 2.5 K/mcL (0.6-4.6); Lymphocytes % 13.5 %; Mean Corpuscular HGB Conc 31.5 g/dL (31.6-35.5); Mean Corpuscular Hemoglobin 29.5 pg (28.0-33.3); Mean Corpuscular Volume 93.5 fL (83.0-100.0); Mean Platelet Volume 8.8 fL (9.4-12.4); Monocytes # 1.7 K/mcL (0.0-1.3); Neutrophils # 14.1 K/mcL (1.6-8.9); Platelet Count 465 K/mcL (140-400); Red Blood Count 2.75 M/mcL (3.82-4.97); Red Cell Distribution Width 13.4 % (11.5-14.5); Segmented Neutrophils % 76.2 %; White Blood Count 18.6 K/mcL (4.3-11.1)
[2018-11-02 14:37] LABS: Hemoglobin 8.1 g/dL (11.5-15.4)
[2018-11-02 14:43] LABS: INR 1.1; Prothrombin Time 12.9 Seconds (9.4-12.1)
[2018-11-02 14:54] LABS: Alanine Aminotransferase 5 Units/L (7-52); Albumin 3.2 g/dL (3.5-5.7); Albumin/Globulin Ratio 1.1 (1.1-2.2); Alkaline Phosphatase 63 Units/L (34-104); Aspartate Amino Transferase 8 Units/L (13-39); BUN/Creatinine Ratio 14 (6-26); Bilirubin,Direct 0.1 mg/dL (0.0-0.2); Bilirubin,Indirect 0.4 mg/dL (0.0-1.2); Bilirubin,Total 0.5 mg/dL (0.3-1.0); Blood Urea Nitrogen 13 mg/dL (8-23); Calcium 8.6 mg/dL (8.6-10.3); Carbon Dioxide 24 mEq/L (23-29); Chloride 98 mEq/L (98-107); Globulin 2.9 g/dL (2.4-3.5); Glucose 131 mg/dL (70-105); Magnesium 1.5 mg/dL (1.6-2.6); Osmolality,Calculated 274 (280-300); Phosphorous 3.3 mg/dL (2.7-4.5); Potassium 3.3 mEq/L (3.5-5.1); Sodium 131 mEq/L (136-145); Total Protein 6.1 g/dL (6.4-8.9); Troponin I < 0.03 ng/mL (< 0.04); eGFR For African Americans > 60 (> 60); eGFR For Non-African Americans 57 (> 60)
[2018-11-02 14:54] LABS: Bilirubin,Urine Negative (Negative); Blood,Urine Large (Negative); Clarity,Urine Clear (Clear); Color,Urine Yellow (Yellow); Glucose,Urine (UA) Normal (Normal); Ketones,Urine Negative (Negative); Leukocyte Esterase,Urine Negative (Negative); Nitrite,Urine Negative (Negative); PH,Urine 5.5 pH Units (5.0-8.0); Protein,Urine Trace mg/dL (Neg-Trace); Urobilinogen,Urine Normal (Normal)
[2018-11-02 15:08] LABS: Bacteria,Urine None Seen per hpf (None-Few); Hyaline Casts,Urine None Seen per lpf (None-Few); Squamous Epithelial Cell,Urine Many per lpf (None-Few)
[2018-11-02] MEDS ORDERED: Piperacillin/Tazobactam 3.375 GM in Water for inj. (sterile) 20 ML IVP ONE (15:15)
[2018-11-02 15:25] LABS: VBG HCO3 25 mEq/L (21-27); VBG PCO2 44 mmHg (41-51); VBG PH 7.36 pH Units (7.32-7.42); VBG PO2 < 17 mmHg (25-50)
[2018-11-02] MEDS ORDERED: Acetaminophen 325 MG TABLET PO ONE (15:53)
[2018-11-02] MEDS ORDERED: Piperacillin/Tazobactam 3.375 GM in 0.9 % Sodium Chloride Mini Bag 100 ML IVP ONE (16:00)
[2018-11-02] MEDS ORDERED: tiZANidine 4 MG TABLET PO STA (19:40)
[2018-11-02] MEDS ORDERED: *HR* HYDROcodone/Acet 10/325 mg TABLET PO STA (19:43)
[2018-11-02] MEDS ORDERED: Isovue-370 500 ML BOTTLE IVP ONE (20:18)
[2018-11-02] MEDS ORDERED: Naloxone 0.4 MG/ML INJ IVP PRN (23:12)
[2018-11-03] MEDS: Piperacillin/Tazobactam 3.375 GM in 0.9 % Sodium Chloride Mini Bag 100 ML IVPB SCH ×4 (00:11→23:57)
--- NOTE | 2018-11-03 01:57 | Internal Med History&Physical ---
<Kevin Sewell D - Last Filed: 11/03/18 08:15> Date of Encounter: 11/03/18 Internal Medicine - H&P: HPI History of present illness: Ms. Patel is a 68 year old female Internal Medicine - H&P: Meds Duloxetine HCl [Cymbalta] 60 mg PO DAILY 02/27/15 [History] Montelukast [Singulair] 10 mg PO DAILY@2100 10/08/18 [History] Tizanidine HCl [Zanaflex] 4 mg PO QID 10/08/18 [History] LevETIRAcetam [Keppra] 500 mg PO QID 10/22/18 [History] Cholecalciferol (D-3) [Vitamin D] 1,000 unit PO DAILY 10/23/18 [History] diazePAM [Valium] 5 mg PO HS 10/23/18 [History] Budesonide/Formoterol 160/4.5 [Symbicort 160/4.5] 2 puff IH BIDR 30 Days #1 bottle 10/28/18 [Rx] Lactobacillus [Culturelle] 1 each PO BID #10 cap.sprink 10/28/18 [Rx] HYDROcodone/Acet 10/325 mg [[place] 10-325 mg] 1 tab PO QID 11/02/18 [History] Allergy/AdvReac Type Severity Reaction Status Date / Time Sulfa (Sulfonamide AdvReac Nausea Verified 10/23/18 16:28 Antibiotics) All Systems PM: A 10-system review of systems was performed and is negative for pertinent findings except as documented above in the HPI. - Constitutional Vitals: Temp Pulse Resp BP Pulse Ox 99.6 F 82 18 120/69 93 11/03/18 07:52 11/03/18 07:52 11/03/18 07:52 11/03/18 07:52 11/03/18 07:52 Internal Med - H&P Results - Labs CBC & Chem 7: 11/03/18 05:40 11/03/18 05:40 Labs: Short CBC 11/02/18 11/03/18 Range/Units 13:43 05:40 WBC 18.6 H 17.7 H (4.3-11.1) K/mcL Hgb 8.1 L D 6.8 L (11.5-15.4) g/dL Hct 25.7 L 20.9 L (35.3-44.9) % Plt Count 465 H 459 H (140-400) K/mcL Neutrophils # 14.1 H 14.5 H (1.6-8.9) K/mcL BMP 11/02/18 11/03/18 13:43 05:40 Sodium 131 L 138 Potassium 3.3 L 3.2 L Chloride 98 100 Carbon Dioxide 24 24 BUN 13 12 Creatinine 0.96 0.90 Glucose 131 H 124 H Calcium 8.6 8.3 L Cardiac Enzymes 11/02/18 Range/Units 13:43 Troponin I < 0.03 (< 0.04) ng/mL Liver Function 11/02/18 11/03/18 Range/Units 13:43 05:40 Total Bilirubin 0.5 0.5 (0.3-1.0) mg/dL Direct Bilirubin 0.1 (0.0-0.2) mg/dL AST 8 L 7 L (13-39) Units/L ALT 5 L 4 L (7-52) Units/L Alkaline Phosphatase 63 61 (34-104) Units/L Albumin 3.2 L 2.9 L (3.5-5.7) g/dL Urine 11/02/18 Range/Units 14:28 Urine Color Yellow (Yellow) Urine Clarity Clear (Clear) Urine pH 5.5 (5.0-8.0) pH Units Ur Specific [place] 1.020 (1.010-1.025) Urine Protein Trace (Neg-Trace) mg/dL Urine Glucose (UA) Normal (Normal) mg/dL - ABG Interpretation ABG results: 11/02/18 15:19 VBG pH 7.36 VBG pCO2 44 VBG pO2 < 17 L VBG HCO3 25 - Impressions ITS Impressions Chest X-Ray 11/02/18 13:43 IMPRESSION: Interval decrease in size of small left pleural effusion with left basilar atelectasis. D/ / Marshall Chávez / Marshall Chávez Interpreting Provider: Marshall Chávez Chest CT 11/02/18 20:18 IMPRESSION: Moderate pericardial effusion increased in amount compared to prior examination with possible pericardial thickening. Findings may represent pericarditis. Bilateral layering pleural effusions, new since prior examination, likely related to CHF from the suspected pericarditis and pericardial effusion. Small subcentimeter mediastinal lymph nodes, likely reactive. No pathologically enlarged lymphadenopathy. Incidentally noted benign 15 mm left adrenal adenoma. Superior endplate T10 and T11 compression fractures, stable since at least 10/08/2018 but possibly chronic. D/ / 11/02/2018 22:31:38 Ramu Lopez MD / eartania Interpreting Provider: Ramu Lopez MD - Time Spent With Patient Total time spent is greater than 50% in coordination of care (as documented) at patient's floor/unit and/or counseling patient: - Attending Attestation I saw and evaluated the patient. I reviewed the residents note, performed my own physical examination and agree with findings and plan as documented in the residents note. Patient seen and exam ined on 11/03/18. Patient presented fo the ER, found to have pericardial effusion and hypotension. I discussed with the patient the results of our preliminary results and stated that she may require CT surgery again to address the effusion. She stated very adamantly that she would not want to go through with that again, would not want any procedures done, no intubation or resuscitation either. She stated that if what was done before did not work, there was no point in doing it again the second time. I specifically asked her then that even if the procedure would be life saving, would she still not want to have anything done, and she again agreed. We will still follow up with the echocardiogram in the morning, possible cardiothoracic surgery consult. Patient's hemoglobin continued to decline as well, and patient was typed and screened and 1 unit of pRBCs was ordered. Continue to monitor vitals and hemoglobin, follow up results of echocardiogram. <Isaias Cain - Last Filed: 11/03/18 09:36> Date of Encounter: 11/03/18 Time of Encounter: 01:15 Internal Medicine - H&P: HPI History of present illness: Ms. Patel is a 68-year-old female who presented to [facility] [place] on 11/02/18 with the chief complaint of feeling bloated, dry nose, sore throat, weakness, cough, and increased sputum production. She was recently discharged on 10/28 after being treated for cardiac tamponade and sepsis secondary to pneumonia. On 10/08, she presented with dyspnea, fever, chills x 1 month and new onset chest pain. Was admitted for bronchitis and COPD exacerbation. On 10/22, she presented to the ED again complaining of chest pain, SOB. Had been short of breath intermittently since discharge. Reported having pain in her chest and neck. Found to be in A. fib with RVR. At a rate of 176 on EKG. Was started on a Cardizem drip. There was concern for possible tamponade on due to CT scan showing pericardial effusion. TTE was ordered, which showed evidence of early tamponade. Dr. Louis was consulted for surgical drainage. Was also treated for broad-spectrum antibiotics vancomycin, Zosyn, and Levaquin for sepsis. On 10/23, Pericardial window with drainage of 400 mL of brownish fluid and pericardial biopsy was performed. Was taken to the ICU afterwards and remained on ventilator. Successfully extubated on 10/23. Abx were switched to Zosyn only on 10/25. Chest tubes were d/c'd on 10/27. No underlying etiology of patients pericardial effusion was determined. She was instructed to follow-up with CT surgery in the 4 weeks following discharge, as well as follow-up with her PCP. She was treated with a total of 5 days of Abx but during her stay, her IV infiltrated and she refused placement of another IV. She requested discharge, and was sent home on 5 more days of Augmentin. Upon arrival, vital signs demonstrated temperature 99.1, pulse 72, respiratory rate 18, blood pressure 71/43, and O2 saturation 93. Labs showed an elevated white count at 18.6 with left shift, hemoglobin 8.1, sodium 131, potassium 3.3, magnesium 1.5, BNP 422. UA demonstrated large amount of blood. CXR demonstrate d interval decrease in size of small left pleural effusion with left basilar atelectasis. CT scan of the chest demonstrated moderate pericardial effusion, increased in amount compared to prior exam with possible pericardial thickening, possibly representing pericarditis. Bilateral layering pleural effusions, new since prior exam, likely related to CHF from suspected pericarditis pericardial effusion. During my assessment, patient denied having any active chest pain. Also denied weakness, fever, chills, nausea, or vomiting. Blood pressure was noted to be low, but according to patient, her pressure is low at baseline. Plan is to consult cardiothoracic surgery and perform an echocardiogram in the morning. In the meantime, we will continue her on broad-spectrum antibiotics. Past Med Surg Social Fam HX - Past Medical History Medical history: COPD Additional medical history: Patient reports hypotension. Psychiatric history: depression - Past Surgical History Surgical History: appendectomy, hysterectomy Additional surgical history: left arm sx. Melissa - Social History Smoking Status: Former smoker Smokeless Tobacco Status: No Alcohol use: none Drug use: none - Family History Mother Living Status: Hx Family Cancer: Yes (Lung) Hx Family Endocrine Disorder: Yes (maternal grandmother DM) All Systems PM: A 10-system review of systems was performed and is negative for pertinent findings except as documented above in the HPI. - Constitutional Vitals: Temp Pulse Resp BP Pulse Ox 98.6 F 77 17 96/42 94 11/02/18 22:38 11/02/18 22:38 11/02/18 22:38 11/02/18 22:38 11/02/18 23:00 Exam: General: Conversant, no acute distress Head: atraumatic, normocephalic; dark circles present around eyes, dry mucous membranes Eye: PERRL, EOMI, conjuntiva pink, sclera anicteric Neck: Supple, trachea midline; No lymphadenopathy Respiratory: Prolonged expiratory phase, No accessory muscle use, wheezes, rales, or rhonchi Cardiovascular: RRR, +S1, +S2; no murmurs, rubs, gallops Abdomen: Soft, nontender Extremities: warm, radial pulses palpable and symmetrical Neurological: No focal deficits Psychiatric: Normal affect, normal mood Skin: Dry, intact Internal Med - H&P Results - Labs CBC & Chem 7: 11/03/18 05:40 11/03/18 05:40 Labs: Short CBC 11/02/18 Range/Units 13:43 WBC 18.6 H (4.3-11.1) K/mcL Hgb 8.1 L D (11.5-15.4) g/dL Hct 25.7 L (35.3-44.9) % Plt Count 465 H (140-400) K/mcL Neutrophils # 14.1 H (1.6-8.9) K/mcL BMP 11/02/18 13:43 Sodium 131 L Potassium 3.3 L Chloride 98 Carbon Dioxide 24 BUN 13 Creatinine 0.96 Glucose 131 H Calcium 8.6 Cardiac Enzymes 11/02/18 Range/Units 13:43 Troponin I < 0.03 (< 0.04) ng/mL Liver Function 11/02/18 Range/Units 13:43 Total Bilirubin 0.5 (0.3-1.0) mg/dL Direct Bilirubin 0.1 (0.0-0.2) mg/dL AST 8 L (13-39) Units/L ALT 5 L (7-52) Units/L Alkaline Phosphatase 63 (34-104) Units/L Albumin 3.2 L (3.5-5.7) g/dL Urine 11/02/18 Range/Units 14:28 Urine Color Yellow (Yellow) Urine Clarity Clear (Clear) Urine pH 5.5 (5.0-8.0) pH Units Ur Specific [place] 1.020 (1.010-1.025) Urine Protein Trace (Neg-Trace) mg/dL Urine Glucose (UA) Normal (Normal) mg/dL - ABG Interpretation ABG results: 11/02/18 15:19 VBG pH 7.36 VBG pCO2 44 VBG pO2 < 17 L VBG HCO3 25 - Impressions ITS Impressions Chest X-Ray 11/02/18 13:43 IMPRESSION: Interval decrease in size of small left pleural effusion with left basilar atelectasis. D/ / Marshall Chávez / Marshall Chávez Interpreting Provider: Marshall Chávez Chest CT 11/02/18 20:18 IMPRESSION: Moderate pericardial effusion increased in amount compared to prior examination with possible pericardial thickening. Findings may represent pericarditis. Bilateral layering pleural effusions, new since prior examination, likely related to CHF from the suspected pericarditis and pericardial effusion. Small subcentimeter mediastinal lymph nodes, likely reactive. No pathologically enlarged lymphadenopathy. Incidentally noted benign 15 mm left adrenal adenoma. Superior endplate T10 and T11 compression fractures, stable since at least 10/08/2018 but possibly chronic. D/ / 11/02/2018 22:31:38 Ramu Lopez MD / drake Interpreting Provider: Ramu Lopez MD - Assessment and Plan (1) Pericardial effusion Current Visit: Yes Status: Acute Assessment and plan: Assessment - As demonstrated on CT scan: moderate pericardial effusion, increased amount compared to prior with possible pericardial thickening - Etiology is unknown at this time; possibly secondary to pericarditis - Recently discharged after being treated with pericardial window for cardiac tamponade - Presented today with progressive weakness; found to be hypotensive on arrival - Does not appear to have An odd; no JVD or distant heart sounds on exam; hemod ynamically stable - Patient's blood pressure is low, but patient states that she normally has a low blood pressure in the 90-100s systolic Plan - Echocardiogram and EKG have been ordered - Will hold off on fluids for the time being, as patient's blood pressure is low at baseline - Will consult cardiothoracic surgery for further recommendations (2) Hypotension Current Visit: Yes Status: Acute Assessment and plan: - Initially presented with low blood pressure of 71/43 - Received IV fluids in the emergency department - Patient reports that she has a low blood pressure baseline; blood pressure since arrival has normalized - Plan is to continue to monitor for clinical signs of deterioration Qualifiers: Qualified Code(s): I95.9 - Hypotension, unspecified (3) Anemia Current Visit: No Status: Acute Assessment and plan: - Hemoglobin was 8.1 on arrival - Last hemoglobin on 10/28 was 10.1 - Etiology unknown; will trend H&H and transfuse as necessary Qualifiers: Anemia type: unspecified type Qualified Code(s): D64.9 - Anemia, unspecified (4) Leukocytosis Current Visit: Yes Status: Acute Assessment and plan: - Visited with a white count of 18.6 with left shift - Was recently admitted and treated for possible HCAP - Currently on vancomycin and Zosyn Qualifiers: Qualified Code(s): D72.829 - Elevated white blood cell count, unspecified (5) Hypokalemia Current Visit: Yes Status: Acute Assessment and plan: - Potassium found to be low at 3.3 - Will order replacement (6) Hyponatremia Current Visit: Yes Status: Acute Assessment and plan: - Sodium was 131 on arrival - Repeat AM labs - Time Spent With Patient Total time spent is greater than 50% in coordination of care (as documented) at patient's floor/unit and/or counseling patient:
[2018-11-03] MEDS ORDERED: Vancomycin 500 MG in 0.9 % Sodium Chloride Mini Bag 100 ML IVPB ONE (03:33)
[2018-11-03] MEDS: *HR* HYDROcodone/Acet 10/325 mg TABLET PO SCH ×4 (04:08→23:52)
[2018-11-03] MEDS: tiZANidine 4 MG TABLET PO SCH ×4 (04:09→23:52)
[2018-11-03 06:38] LABS: Basophils % 0.2 %; Eosinophils # 0.1 K/mcL (0.0-0.6); Eosinophils % 0.5 %; Hematocrit 20.9 % (35.3-44.9); Hemoglobin 6.8 g/dL (11.5-15.4); Immature Granulocytes % 0.4 % (0-4); Lymphocytes # 1.5 K/mcL (0.6-4.6); Lymphocytes % 8.5 %; Mean Corpuscular HGB Conc 32.5 g/dL (31.6-35.5); Mean Corpuscular Volume 92.1 fL (83.0-100.0); Monocytes # 1.4 K/mcL (0.0-1.3); Monocytes % 8.2 %; Neutrophils # 14.5 K/mcL (1.6-8.9); Platelet Count 459 K/mcL (140-400); Red Blood Count 2.27 M/mcL (3.82-4.97); Red Cell Distribution Width 13.2 % (11.5-14.5); Segmented Neutrophils % 82.2 %; White Blood Count 17.7 K/mcL (4.3-11.1)
[2018-11-03 07:04] LABS: Alanine Aminotransferase 4 Units/L (7-52); Albumin 2.9 g/dL (3.5-5.7); Albumin/Globulin Ratio 1.1 (1.1-2.2); Alkaline Phosphatase 61 Units/L (34-104); Aspartate Amino Transferase 7 Units/L (13-39); BUN/Creatinine Ratio 13 (6-26); Bilirubin,Total 0.5 mg/dL (0.3-1.0); Blood Urea Nitrogen 12 mg/dL (8-23); Calcium 8.3 mg/dL (8.6-10.3); Carbon Dioxide 24 mEq/L (23-29); Chloride 100 mEq/L (98-107); Globulin 2.6 g/dL (2.4-3.5); Glucose 124 mg/dL (70-105); Osmolality,Calculated 287 (280-300); Potassium 3.2 mEq/L (3.5-5.1); Sodium 138 mEq/L (136-145); Total Protein 5.5 g/dL (6.4-8.9); eGFR For African Americans > 60 (> 60); eGFR For Non-African Americans > 60 (> 60)
--- NOTE | 2018-11-03 08:31 | Event Note ---
Date of Encounter: 11/03/18 Time of Encounter: 08:17 after reviewing patient's chart she was seen at bedside along with Corry Brock RN. patient reports that she has had SOB for the past few days. she was recently admitted and was treated for temponade and sepsis secondar to PNA. was discharged on oral Abx. she was feeling well however developed progressively worsening SOB and bloating so she decided to come to the ED. i discussed all blood work imaging studies, vitals in depth. she understands that based on her vitals and CT findings she likely has moderate pericaardial effusion worrisome for temponade possible complicated PNA and i discussed that we need to have STAT Echocardiogram, cardiothoracic consultation, possible thoracocentesis. but she does not want ay procedures performed. we discussed blood transfusion and she would not like any blood transfusion right now. she wishes not to have any more procedures performed. she does not want any blood work right now. she is Axox3, she understands her medical condition and problems. she understands that her condition is serious and that her condition can result in , cardiopulmonary arrest, worsening infection, septic shock however she does not want any procedures or consultations at this time. i discussed comfort care and pain/ symptom control and palliative consultation and she is in agreement. she would like to be kept comfortable at home with home hospice. i called palliative and spoke to the team. they will see the patient and provide further recommendations. at 9:45 AM i was notified by the nursing staff that after speaking to the patient again she now would like medical treatment. CT surgery, echocardiogram STAT and cardiology along with ID consulted cytology negative for malignancy. etiology of her pericardial effusion ? temponade is unknown. will also consult rheumatology. ESR and CRP added to AM labs urine antigen ordered. will follow above recommendations.
[2018-11-03] MEDS ORDERED: Aminoglycoside Consult 1 EACH MC ONE (10:02)
[2018-11-03] MEDS: Budesonide/Formoterol 160/4.5 1 PUFF INH IH SCH ×2 (10:18→22:15)
--- NOTE | 2018-11-03 10:54 | Cardiothoracic Consult Note ---
Date of Encounter: 11/03/18 Time of Encounter: 10:53 Assessment and Plan (1) Pericardial effusion Current Visit: Yes Status: Acute The patient is a 68-year-old lady who was admitted to [facility] with complaints of shortness of breath, chills, fever, and a sore throat. She had undergone a subxiphoid pericardial window on 10/23/2018. During her evaluation yesterday/early this morning, the patient underwent a chest CT which revealed a recurrent pericardial effusion which was larger than her previous pericardial effusion. She had some hypotension this morning and has been recommended for redo subxiphoid pericardial window and drainage of the pericardial effusion. Initially, the patient was referring further operative intervention; however, now consents to lifesaving procedures. The patient will undergo a redo subxiphoid pericardial window and possible left thoracotomy with pericardial window if the subxiphoid pericardial window approach is unsafe. The assessment and plan as outlined above was discussed with the patient and/or family members who expressed understanding and agreement. All questions were answered. - History of Present Illness Consult date: 11/03/18 Requesting physician: Jannet Paula Consult reason: Recurrent pericardial effusion Chief complaint: Shortness of breath, chills, fever History of present illness: Ms. Patel is a 68 year old otherwise healthy lady who was admitted to [facility] [place] early this morning with complaints of shortness of breath, chills, fever, and a sore throat. Of note, patient had undergone a subxiphoid pericardial window on 10/23/2018 for pericardial effusion with evidence of tamponade. The time of surgery approximately 400 mL of brownish fluid was removed. The cytology was negative for malignancy and the pericardial biopsy showed chronic inflammation without evidence of malignancy. The patient did well postoperatively and was discharged home on 10/28/2018. She was receiving antibiotics for a presumed bronchitis/pneumonia. The patient called the office yesterday with her complaints and was referred for evaluation at [facility] [place] emergency department. A chest CT performed in the emergency room revealed a recurrent pericardial effusion which appeared larger than the one performed during her first admission for pericardial effusion. Early this morning she had hypotension and was refusing any other intervention. After speaking with the hospitalist, nurses, and palliative care nurse practitioner, the patient has agreed to further treatment. She was refusing an echocardiogram this morning, but has agreed to this time. I have been asked to evaluate the patient for possible redo subxiphoid pericardial window. Past Med Surg Social Fam HX - Past Medical History Medical history: COPD Additional medical history: Patient reports hypotension. Psychiatric history: depression - Past Surgical History Surgical History: appendectomy, hysterectomy, orthopedic, other (ORIF left humeral fracture), other (Subxiphoid pericardial window, [facility]K) Additional surgical history: left arm sx. [id number] - Social History Smoking Status: Former smoker Smokeless Tobacco Status: No Alcohol use: none Drug use: none Occupational status: retired Current living situation: Home - Independent Activity Level: Mostly sedentary Recent Out of Country Travel Within the Last 8 Weeks: No Exposure or Possible Exposure to Illness During Travel: No - Family History Mother Living Status: Hx Family Cancer: Yes (Lung) Hx Family Endocrine Disorder: Yes (maternal grandmother DM) Medications and Allergies Duloxetine HCl [Cymbalta] 60 mg PO DAILY 02/27/15 [History] Montelukast [Singulair] 10 mg PO DAILY@2100 10/08/18 [History] Tizanidine HCl [Zanaflex] 4 mg PO QID 10/08/18 [History] LevETIRAcetam [Keppra] 500 mg PO QID 10/22/18 [History] Cholecalciferol (D-3) [Vitamin D] 1,000 unit PO DAILY 10/23/18 [History] diazePAM [Valium] 5 mg PO HS 10/23/18 [History] Budesonide/Formoterol 160/4.5 [Symbicort 160/4.5] 2 puff IH BIDR 30 Days #1 bottle 10/28/18 [Rx] Lactobacillus [Culturelle] 1 each PO BID #10 cap.sprink 10/28/18 [Rx] HYDROcodone/Acet 10/325 mg [[place] 10-325 mg] 1 tab PO QID 11/02/18 [History] Allergy/AdvReac Type Severity Reaction Status Date / Time Sulfa (Sulfonamide AdvReac Nausea Verified 10/23/18 16:28 Antibiotics) All Systems Review: The remainder of the systems were reviewed and are negative Physical Examination Vital Signs, Last 4 Hours Temp Pulse Resp BP Pulse Ox 08/07/19 09:41 93 11/03/18 07:52 99.6 F 82 18 120/69 93 General: Conversant, No Apparent Distress HEENT: Atraumatic, Normocephaly, Trachea midline Neck: No JVD, Normal carotid pulses Cardiac: Reg Rate and Rhythm, Normal S1 and S2, No Murmur Lungs: Normal Breath Sounds, No Wheeze, Rales, Rhonchi Neuro: Alert and responsive, No focal deficits noted, Motor nerves intact, Sensory nerves intact Vascular: Normal capillary refill Abdomen: Soft, Non-tender Skin: No rashes noted on visualized skin Musculoskeletal: No Chest Wall Tenderness Extremities: No Clubbing, No Cyanosis, No Edema Results 11/03/18 05:40 11/03/18 05:40 Lab Results, Last 24 hours 11/02/18 11/02/18 11/02/18 13:43 13:43 13:43 WBC 18.6 H Hgb 8.1 L D Hct 25.7 L Plt Count 465 H INR 1.1 APTT 35.0 Sodium 131 L Potassium 3.3 L Chloride 98 Carbon Dioxide 24 BUN 13 Creatinine 0.96 Glucose 131 H Calcium 8.6 Magnesium 1.5 L Total Bilirubin 0.5 AST 8 L ALT 5 L Alkaline Phosphatase 63 Troponin I < 0.03 B-Natriuretic Peptide 11/02/18 11/03/18 11/03/18 13:43 05:40 05:40 WBC 17.7 H Hgb 6.8 L Hct 20.9 L Plt Count 459 H INR APTT Sodium 138 Potassium 3.2 L Chloride 100 Carbon Dioxide 24 BUN 12 Creatinine 0.90 Glucose 124 H Calcium 8.3 L Magnesium Total Bilirubin 0.5 AST 7 L ALT 4 L Alkaline Phosphatase 61 Troponin I B-Natriuretic Peptide 422 H Consult Discharge Plan - Plan Referrals: Liss Ching, JAMES [Primary Care Provider] -
--- NOTE | 2018-11-03 11:04 | Event Note ---
Date of Encounter: 11/03/18 Time of Encounter: 10:00 Palliative was initially consulted r/t discussion with patient that she was refusing any medical treatment and just wanted to be kept comfortable. Prior to my arrival, she has spoke with providers and is now agreeable to testing and Cardiothoracic evaluation. D/W Dr. Paula. Palliative consult on hold at present.
--- NOTE | 2018-11-03 11:31 | Anesthesia Evaluation PreOp ---
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 Significant HX Other Medical History: Denies Any Significant HX Anesthesia History: No Prior Anesthetic Complications, Past Anesthesia (window, MIGUEL, arm sx) Alcohol Use: none Drug use: none Medications and Allergies Duloxetine HCl [Cymbalta] 60 mg PO DAILY 02/27/15 [History] Montelukast [Singulair] 10 mg PO DAILY@2100 10/08/18 [History] Tizanidine HCl [Zanaflex] 4 mg PO QID 10/08/18 [History] LevETIRAcetam [Keppra] 500 mg PO QID 10/22/18 [History] Cholecalciferol (D-3) [Vitamin D] 1,000 unit PO DAILY 10/23/18 [History] diazePAM [Valium] 5 mg PO HS 10/23/18 [History] Budesonide/Formoterol 160/4.5 [Symbicort 160/4.5] 2 puff IH BIDR 30 Days #1 bottle 10/28/18 [Rx] Lactobacillus [Culturelle] 1 each PO BID #10 cap.sprink 10/28/18 [Rx] HYDROcodone/Acet 10/325 mg [[place] 10-325 mg] 1 tab PO QID 11/02/18 [History] Allergy/AdvReac Type Severity Reaction Status Date / Time Sulfa (Sulfonamide AdvReac Nausea Verified 10/23/18 16:28 Antibiotics) - Meds/Allergy Pre-op Review Medications Reviewed: Yes Allergies Reviewed: Yes Beta Blockers on Current Med List: No Anesthesia Results - Labs 11/03/18 05:40 11/03/18 05:40 - Imaging Additional studies: CT chest: IMPRESSION: Moderate pericardial effusion increased in amount compared to prior examination with possible pericardial thickening. Findings may represent pericarditis. Bilateral layering pleural effusions, new since prior examination, likely related to CHF from the suspected pericarditis and pericardial effusion. Small subcentimeter mediastinal lymph nodes, likely reactive. No pathologically enlarged lymphadenopathy. Incidentally noted benign 15 mm left adrenal adenoma. Superior endplate T10 and T11 compression fractures, stable since at least 10/08/2018 but possibly chronic. Anesthesia Exam Selected Entries 11/03/18 07:52 11/03/18 10:55 Temperature 99.6 F Pulse Rate 82 Respiratory Rate 17 Blood Pressure 120/69 O2 Sat by Pulse Oximetry 98 Fraction of Inspired Oxygen % 32 Oxygen Flow Rate (LPM) 3 Oxygen Delivery Method Nasal Cannula Weight: 72kg - HEENT Pupil (Motor): EOMI Mallampati: II Teeth: Edentulous Oral Opening: Greater than 3 - WEIGHT REDUCING TECHNICIAN LOC: Oriented WEIGHT REDUCING TECHNICIAN Motor: Normal RUE, Normal LUE, Normal RLE, Normal LLE, Normal Face WEIGHT REDUCING TECHNICIAN Sensory: Normal: RUE, LUE, RLE, LLE, Face - Cardiac Rhythm: Regular Murmur: None - Pulmonary Breath Sounds: bilateral Clear Respiratory Effort: Symmetrical Anesthesia Assess/Plan ASA Score: 4 Level of consciousness: Cooperative, Oriented Anesthetic Plan: General Monitoring Plan: Standard Monitors Recovery Plan: ICU (agrees to GA and a-line if needed.)
[2018-11-03] MEDS: Cholecalciferol (D-3) 1,000 UNIT (25MCG) TABLET PO SCH (11:57)
[2018-11-03] MEDS: Lactobacillus 1 EACH CAP.SPRINK PO SCH ×2 (11:57→21:21)
--- NOTE | 2018-11-03 12:03 | Cardiology Consult Note ---
<Svetlana Lowry Ziggy - Last Filed: 11/03/18 12:41> Date of Encounter: 11/03/18 Time of Encounter: 11:40 Assessment and Plan (1) Pericardial effusion Current Visit: Yes Status: Acute Given patient's history of pericardiocentesis, CT imaging consistent with moderate pericardial effusion of unclear etiology, lack of CP/SOB and negative troponins, will defer to cardiothoracic service for management. She has no other signs of pericarditis - EKG changes, friction rub, pleuritic chest pain. Also no signs of CHF, given normal EF and function on echo, apart from BNP 422 and new pleural effusions. - If effusion is exudative based on findings during pericardial window we could try adding medical management in the form of NSAIDS plus colchine, along with steroids if needed as second-line. However patient also had drop in hbg from 8.1 to 6.8 without identified source of blood loss which argues against NSAID therapy. Cr is WNL. - Consider further workup to identify source of effusion (2) Anemia Current Visit: Yes Status: Acute Patient's hgb dropped from 8.1 to 6.8 since admit. Hgb on 10/26 was 10.1. No acute bleed identified on imaging. Blood loss may be occurring in form of pericardial effusion. Lab work consistent with normocytic anemia w/ reactive thrombocytosis (plt [phone]). FOBT negative, UA positive for possible blood. - Follow pericardiocentesis results to see whether that explains blood loss - Repeat hgb to evaluate whether previous value was accurate - COnsider avoiding NSAIDs, heparin until resolves or source of blood loss found - Transfuse PRBCs as needed (hgb <7) provided patient agrees; she declined a transfusion earlier today. Qualifiers: Anemia type: unspecified type Qualified Code(s): D64.9 - Anemia, unspecified Discussion w patient/family: The assessment and plan as outlined above was discussed with the patient and/or family members who expressed understanding and agreement. All questions were answered. Thank you for involving us in the care of your patient. Please call with any questions. History of Present Illness Consult date: 11/03/18 History of present illness: Ms. Patel is a 68 year old female s/p pericardiocentesis who presented to the ED on 11/02/18 with CC of NEWELL, feeling bloated, dry nose, sore throat, weakness, cough, RLE pain. Patient denied CP, chills, fever, N/V/D. VS significant on this admit for BP 71/43, O2 sat 93% on RA, temp 99.1F. RR and HR WNL. Patient st ated she is normally hypotensive. Labs showed leukocytosis with left shift, hgb 8.1, potassium 8.3, BNP 422. Trop negative, EKG w/o acute changes. UA positive for large amount of blood. CXR w/ cardiomegaly, decreased left pleural effusion with left basilar atelectasis. CT chest consistent w/ "moderate pericardial effusion, increased in amount compared to prior exam with possible pericardial thickening, possibly representing pericarditis." New bilateral layering pleural effusions also noted. Venous doppler negative for DVT in right leg. She presented to the ED twice in September for CP and SOB. She received a pericardial window on 10/23 which drained 400 ml of "brownish fluid." Pericardial biopsy also done, but underlying etiology of effusion remains undetermined. Cytology negative for malignancy. She has been getting augementin at discharge, zosyn and vanc as inpatient. She had been discharged 10/28/18 following pericardiocentesis for tamponade, sepsis and pneumonia. PMH significant for COPD, emphysema, stable T10/T11 compression fractures. Social history significant for former smoker. Today, stat echo showed "gelatinous material" and small effusion next to apex/right ventricle. LVEF WNL at 60%. Cardiothoracic surgery plans to do another pericardial window. Patient denies CP, SOB today. BP 94-120/75-69, afebrile, 95%O2 on 2.5L NC, HR and RR WNL. Hgb 6.8; has been downtrending since 10/26 (10.1). Past Med Surg Social Fam HX - Past Medical History Medical history: COPD Additional medical history: Patient reports hypotension. Psychiatric history: depression - Past Surgical History Surgical History: appendectomy, hysterectomy, orthopedic, other (ORIF left humeral fracture), other (Subxiphoid pericardial window, MMK) Additional surgical history: left arm sx. Melissa - Social History Smoking Status: Former smoker Smokeless Tobacco Status: No Alcohol use: none Drug use: none - Family History Mother Living Status: Hx Family Cancer: Yes (Lung) Hx Family Endocrine Disorder: Yes (maternal grandmother DM) Medications and Allergies Duloxetine HCl [Cymbalta] 60 mg PO DAILY 02/27/15 [History] Montelukast [Singulair] 10 mg PO DAILY@2100 10/08/18 [History] Tizanidine HCl [Zanaflex] 4 mg PO QID 10/08/18 [History] LevETIRAcetam [Keppra] 500 mg PO QID 10/22/18 [History] Cholecalciferol (D-3) [Vitamin D] 1,000 unit PO DAILY 10/23/18 [History] diazePAM [Valium] 5 mg PO HS 10/23/18 [History] Budesonide/Formoterol 160/4.5 [Symbicort 160/4.5] 2 puff IH BIDR 30 Days #1 bottle 10/28/18 [Rx] Lactobacillus [Culturelle] 1 each PO BID #10 cap.sprink 10/28/18 [Rx] HYDROcodone/Acet 10/325 mg [[place] 10-325 mg] 1 tab PO QID 11/02/18 [History] Allergy/AdvReac Type Severity Reaction Status Date / Time Sulfa (Sulfonamide AdvReac Nausea Verified 10/23/18 16:28 Antibiotics) All Systems Review: The remainder of the systems were reviewed and are negative unless otherwise stated. - Constitutional Constitutional: headache(s) - Cardiovascular Cardiovascular: as per HPI - Musculoskeletal Musculoskeletal: back pain (Chronic 2/2 stable T10/T11 compression fx) Physical Examination Vital Signs, Last 4 Hours Resp Pulse Ox 11/03/18 10:55 17 98 11/03/18 09:41 93 General: Conversant, No Apparent Distress HEENT: Atraumatic, Normocephaly, Mucus Membranes Moist Neck: No JVD, Normal carotid pulses Cardiac: Reg Rate and Rhythm, Normal S1 and S2, No Murmur, Other (Mildly diminished heart sounds, no friction rub) Lungs: Other (Decreased breath sounds bilaterally) Neuro: Alert and responsive, No focal deficits noted Abdomen: Soft, Non-Tender Skin: No rashes noted on visualized skin Musculoskeletal: No Chest Wall Tenderness Extremities: No Clubbing, No Cyanosis, Normal Pulses, Other (Edema right forearm, perfusion maintained, ecchymoses) Results 11/03/18 05:40 11/03/18 05:40 Lab Results 11/02/18 11/02/18 11/02/18 13:43 13:43 13:43 WBC 18.6 H Hgb 8.1 L D Hct 25.7 L Plt Count 465 H INR 1.1 APTT 35.0 Sodium 131 L Potassium 3.3 L Chloride 98 Carbon Dioxide 24 BUN 13 Creatinine 0.96 Glucose 131 H Calcium 8.6 Magnesium 1.5 L Total Bilirubin 0.5 AST 8 L ALT 5 L Alkaline Phosphatase 63 Troponin I < 0.03 B-Natriuretic Peptide 11/02/18 11/03/18 11/03/18 13:43 05:40 05:40 WBC 17.7 H Hgb 6.8 L Hct 20.9 L Plt Count 459 H INR APTT Sodium 138 Potassium 3.2 L Chloride 100 Carbon Dioxide 24 BUN 12 Creatinine 0.90 Glucose 124 H Calcium 8.3 L Magnesium Total Bilirubin 0.5 AST 7 L ALT 4 L Alkaline Phosphatase 61 Troponin I B-Natriuretic Peptide 422 H - Imaging and Cardiology Chest Xray: report reviewed, image reviewed Echo: report reviewed Other Results: CT report and images reviewed - EKG Interpretation EKG results cardiology: personally reviewed (Rhythm strip), sinus rhythm, no diagnostic ischemia, other (No electrical alternans, no diffuse ST elevations) Consult Discharge Plan - Plan Referrals: Liss Ching, O[facility] BURNER REPAIRER [Primary Care Provider] - <Morgan Epstein - Last Filed: 11/03/18 16:13> Date of Encounter: 11/03/18 - Attending Attestation Patient was seen and evaluated independently by me. Findings, assessment and plan were discussed at length with patient, questions answered. Agree with nurse practitioner's/resident's documentation. Addition as follows, 68yoCF ho pericardial effusion Dx 1 month ago () s/p pericardial window w/ pericardial biopsy revealing chronic inflammation, COPD. P/w dry cough with left lower chest/back sharp pain. CT left lower atelectasis, "moderate" percardial effusion. Consulted for pericardial effusion. Initial hypotension improved on IVF, RR, 2/6 SM ULSB no radiation, sig decreased left lobe AE, no LE edema. TTE showed only small anterior pericardial effusion with gelatinous materials, EF 60%. ECG SR w/o NS STT changes. Trop neg. Hb from 8-6.8, persistent leukocytosis, no SARAH. A: Sepsis Small pericardial effusion w/o chest pain, no tamponade Ho pericardial window, inflammatory on pericardial biopsy result, unclear etiology, question of effusive +/- constriction, pending rheum eval Acute on chronic anemia ? lab error vs active bleeding P: repeat H/H no ASA/NSAIDs till r/o active bleeding colchicine avoid hypovolemia rheum consult if recurrent dyspnea, may consider further imaging/left and right heart cath for constriction and pericardial stripping (need input from rheum and CT surgery) Morgan Epstein MD, PhD Assessment and Plan Discussion w patient/family: The assessment and plan as outlined above was discussed with the patient and/or family members who expressed understanding and agreement. All questions were answered. Thank you for involving us in the care of your patient. Please call with any questions. History of Present Illness History of present illness: Ms. Patel is a 68 year old female All Systems Review: The remainder of the systems were reviewed and are negative Physical Examination Vital Signs, Last 4 Hours Temp Pulse Resp BP Pulse Ox 11/03/18 11:57 98.7 F 75 18 94/75 95 Results 11/03/18 05:40 11/03/18 05:40 Lab Results 11/03/18 11/03/18 05:40 05:40 WBC 17.7 H Hgb 6.8 L Hct 20.9 L Plt Count 459 H Sodium 138 Potassium 3.2 L Chloride 100 Carbon Dioxide 24 BUN 12 Creatinine 0.90 Glucose 124 H Calcium 8.3 L Total Bilirubin 0.5 AST 7 L ALT 4 L Alkaline Phosphatase 61
--- NOTE | 2018-11-03 12:05 | Event Note ---
Date of Encounter: 11/03/18 Time of Encounter: 11:52 The patient agreed to a transthoracic echocardiogram which was performed at the bedside. The echocardiogram results were reviewed with Dr. José Manuel Zimmerman and the study shows minimal pericardial fluid with a gelatinous layer on the epicardial surface. The gelatinous layer is consistent with the fibrinous exudate described by Dr. Mac Louis in his operative note from 10/23/2018. There is no evidence of RV collapse. At this time I do not believe that the patient requires operative intervention. In order to remove the exudate, the patient would require a median sternotomy and she is hesitant to undergo this procedure at this time. I will see the patient daily to reevaluate her condition. Please do not hesitate to contact me if you have any concerns.
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
--- NOTE | 2018-11-03 13:38 | Electrocardiograph Report ---
[address] [address] Test Date: 2018-11-02 Pat Name: Diana Patel Department: [id number] Room: 2N1 Gender: F Secondary Set Up Man: : 1950 Requested By: [id number] Order Number: [id number] Reading MD: Vinayak Isabel Measurements Intervals [place] Rate: 76 P: 53 OR: 163 QRS: 26 QRSD: 85 T: -16 QT: 391 QTc: 440 Interpretive Statements Sinus rhythm BASELINE ARTIFACT Electronically Signed On 11-03-2018 13:37:13 EDT by Vinayak Isabel
[2018-11-03] MEDS ORDERED: 0.9 % Sodium Chloride 250 ML ONE (16:40)
[2018-11-03] MEDS: levETIRAcetam 250 MG TABLET PO SCH ×3 (16:53→21:21)
[2018-11-03] MEDS: Colchicine 0.6 MG TABLET PO SCH (16:53)
[2018-11-03] MEDS: Doxycycline 100 MG in 0.9 % Sodium Chloride Mini Bag 100 ML IVPB SCH (18:05)
[2018-11-03] MEDS ORDERED: 0.9 % Sodium Chloride 1,000 ML ONE (18:52)
[2018-11-03] MEDS ORDERED: 0.9 % Sodium Chloride 500 ML IV ONE (19:07)
[2018-11-03] MEDS ORDERED: 0.9 % Sodium Chloride 500 ML IVC PRN (19:07)
[2018-11-03] MEDS ORDERED: Colchicine 0.6 MG TABLET PO SCH (21:00)
[2018-11-03] MEDS ORDERED: diazePAM 5 MG TABLET PO SCH (21:00)
[2018-11-03 22:15] LABS: % Iron Saturation 6 % (15-50); Iron 11 mcg/dL (50-170); Transferrin 141 mg/dL (203-362)
[2018-11-03 22:34] LABS: Ferritin 227 ng/mL (10-120)
[2018-11-03 22:39] LABS: Folate 14.3 ng/mL (3.0-16.0)
[2018-11-04 04:15] LABS: Hematocrit 24.5 % (35.3-44.9); Mean Corpuscular HGB Conc 32.7 g/dL (31.6-35.5); Mean Corpuscular Hemoglobin 30.2 pg (28.0-33.3); Mean Corpuscular Volume 92.5 fL (83.0-100.0); Mean Platelet Volume 8.8 fL (9.4-12.4); Platelet Count 402 K/mcL (140-400); Red Blood Count 2.65 M/mcL (3.82-4.97); Red Cell Distribution Width 13.4 % (11.5-14.5); White Blood Count 19.1 K/mcL (4.3-11.1)
[2018-11-04 04:36] LABS: Alanine Aminotransferase 5 Units/L (7-52); Albumin 2.8 g/dL (3.5-5.7); Alkaline Phosphatase 71 Units/L (34-104); Aspartate Amino Transferase 8 Units/L (13-39); BUN/Creatinine Ratio 11 (6-26); Bilirubin,Total 0.6 mg/dL (0.3-1.0); Blood Urea Nitrogen 12 mg/dL (8-23); Carbon Dioxide 25 mEq/L (23-29); Chloride 103 mEq/L (98-107); Complement C3 125 mg/dL (87-200); Globulin 2.9 g/dL (2.4-3.5); Glucose 134 mg/dL (70-105); Magnesium 1.6 mg/dL (1.6-2.6); Osmolality,Calculated 282 (280-300); Potassium 3.3 mEq/L (3.5-5.1); Sodium 135 mEq/L (136-145); Total Protein 5.7 g/dL (6.4-8.9); eGFR For African Americans > 60 (> 60); eGFR For Non-African Americans 52 (> 60)
[2018-11-04] MEDS: Doxycycline 100 MG in 0.9 % Sodium Chloride Mini Bag 100 ML IVPB SCH (06:12)
[2018-11-04] MEDS: *HR* HYDROcodone/Acet 10/325 mg TABLET PO SCH ×4 (06:14→23:45)
[2018-11-04] MEDS: tiZANidine 4 MG TABLET PO SCH ×4 (06:14→23:45)
--- NOTE | 2018-11-04 07:14 | Cardiothoracic Progress Note ---
Date of Encounter: 11/04/18 Time of Encounter: 07:12 - Assessment and plan (1) Pericardial effusion Current Visit: Yes Status: Acute The patient is a 68-year-old lady who was admitted to [facility] with complaints of shortness of breath, chills, fever, and a sore throat. She had undergone a subxiphoid pericardial window on 10/23/2018. During her evaluation yesterday/early this morning, the patient underwent a chest CT which revealed a recurrent pericardial effusion which was larger than her previous pericardial effusion. She had some hypotension this morning and has been recommended for redo subxiphoid pericardial window and drainage of the pericardial effusion. Initially, the patient was referring further operative intervention; however, the echocardiogram revealed a small/trivial amount of pericardial fluid and a gelatinous layer over the anterior portion of the right ventricle and apex. There was no evidence of tamponade. The patient is being treated with aggressive antibiotic therapy for a presumed bronchitis/pneumonia. The assessment and plan as outlined above was discussed with the patient and/or family members who expressed understanding and agreement. All questions were answered. - Subjective Interval history: The patient resting comfortably in her hospital bed. She has no complaints other than some neck stiffness and lower back pain. She has no respiratory distress. Vital Signs, Last 4 Hours Pulse Resp BP Pulse Ox 11/04/18 06:00 73 21 104/64 100 11/04/18 05:00 62 19 86/41 100 11/04/18 04:00 78 21 102/54 100 Oxgyen Flow Rate Oxygen Flow Rate (LPM) 2 Weight 11/02/18 11/03/18 11/04/18 23:59 23:59 23:59 Weight 72.4 kg 72.3 kg 72.3 kg - Physical Examination General: Conversant, No Apparent Distress Neck: No JVD, Normal carotid pulses Cardiac: Reg Rate and Rhythm, Normal S1 and S2, No Murmur Lungs: Normal Breath Sounds, No Wheeze, Rales, Rhonchi Neuro: Alert and responsive, No focal deficits noted Vascular: Normal capillary refill Musculoskeletal: No Chest Wall Tenderness Extremities: No Clubbing, No Cyanosis, No Edema - Labs 11/04/18 04:00 11/04/18 04:00 Lab Results, Last 24 hours 11/04/18 11/04/18 04:00 04:00 WBC 19.1 H Hgb 8.0 L Hct 24.5 L Plt Count 402 H Sodium 135 L Potassium 3.3 L Chloride 103 Carbon Dioxide 25 BUN 12 Creatinine 1.05 Glucose 134 H Calcium 8.0 L Magnesium 1.6 Total Bilirubin 0.6 AST 8 L ALT 5 L Alkaline Phosphatase 71 Consult Discharge Plan - Plan Referrals: Liss Ching, JAMES [Primary Care Provider] -
[2018-11-04] MEDS: Budesonide/Formoterol 160/4.5 1 PUFF INH IH SCH ×2 (07:27→19:53)
[2018-11-04] MEDS: Piperacillin/Tazobactam 3.375 GM in 0.9 % Sodium Chloride Mini Bag 100 ML IVPB SCH (07:45)
[2018-11-04] MEDS: levETIRAcetam 250 MG TABLET PO SCH ×4 (07:46→21:11)
[2018-11-04] MEDS: Colchicine 0.6 MG TABLET PO SCH (07:46)
[2018-11-04] MEDS: Cholecalciferol (D-3) 1,000 UNIT (25MCG) TABLET PO SCH (07:46)
[2018-11-04] MEDS: Lactobacillus 1 EACH CAP.SPRINK PO SCH ×2 (07:46→21:13)
--- NOTE | 2018-11-04 08:11 | Pulmonology Consult Note ---
Date of Encounter: 11/04/18 Time of Encounter: 09:13 Assessment and Plan (1) Pericardial effusion Current Visit: Yes Status: Acute (2) Hypotension Current Visit: Yes Status: Acute Qualifiers: Hypotension type: unspecified hypotension type Qualified Code(s): I95.9 - Hypotension, unspecified (3) Anemia Current Visit: Yes Status: Acute Qualifiers: Anemia type: unspecified type Qualified Code(s): D64.9 - Anemia, unspecified (4) Hypokalemia Current Visit: Yes Status: Acute (5) Hyponatremia Current Visit: Yes Status: Acute (6) Leukocytosis Current Visit: Yes Status: Acute Qualifiers: Qualified Code(s): D72.829 - Elevated white blood cell count, unspecified (7) Microscopic hematuria Current Visit: Yes Status: Acute (8) Thrombocytosis Current Visit: Yes Status: Acute (9) DVT prophylaxis Current Visit: Yes Status: Acute scd History of Present Illness History of present illness: Course: Diana Patel is a 68-year-old female with past medical history of mitral valve prolapse, "cat scratch fever ", pericardial effusion discovered on CTA at [facility] 10/08/18 and again shown on echocardiogram 10/22/18 status post subxiphoid pericardial window on 10/23/[address] Louis discharged 10/28/18 who presented to the ED on 11/02/18 complaining of bloating and fever with sore throat. These symptoms are reported to Dr. Louis's office and they referred her to the ED. On arrival her vitals were significant for blood pressure of 71/43. On arrival labs were significant for White count elevated at 18.6. However her white count has been elevated since at least 10/08/18. Chronic anemia. Elevated platelets that has also been present since 10/08/18. Hyponatremia, hypokalemia, hypomagnesemia. Lactic acid within normal limits. AST and ALT low. BNP elevated from last visit at 422 from 282. Negative troponins. UA showed 5-15 RBCs with 3-5 WBCs. Venous duplex ultrasound showed normal superficial and deep exam of right lower extremity. Chest CT significant for moderate pericardial effusion with possible pericardial thickening that were indicative of pericarditis. Bilateral layering pleural effusions. Incidental left adrenal adenoma. Superior endplate T10 and T11 compression fractures stable. She was admitted to the hospital for pericardial effusion, hypotension, anemia, leukocytosis, hypokalemia and hyponatremia. Further labs significant for Elevated CRP at 228. Elevated rheumatoid factor at 15. Elevated ESR at 62. Echo 11/03/18 was suboptimal. This showed gelatinous-appearing material and a small pericardial effusion adjacent to the anterior portion of the RV and around the apex. No echocardiographic evidence of tamponade. She was transferred to the ICU on 11/03/18 for hypotension of 60/40. Cardiology considered repeat subxiphoid pericardial window however the above echo prompted them to treat medically with colchicine. NSAIDs were held secondary to decrease in hemoglobin of undetermined etiology. Rheumatology was consulted. History of present illness: Patient presents with interesting 2-3 month history of repeated nocturnal dyspnea that has awoken her from sleep and is accompanied by what she describes as an "electrical attack ". Chest pain diffusely accompanies these attacks and she states that it feels like "everything and there was exploding" when referring to her chest. She states that the episodes would resolve after she would take a [place], sit up, and take a muscle relaxer. She reports intermittent hospital visits for these symptoms during the past 2-3 months. States that 3-4 weeks ago she was treated at [place] for bronchitis and pneumonia after presenting with yellow sputum production. Current admission sequelae of having yet another attack after which she called the ambulance that took her to [place]. They did a CT scan and chest x-ray and send her to [facility]. PMH: cat scratch fever, mitral valve prolapse, pericardial effusion. Denies any lung issues, diabetes, hypertension, high cholesterol. Allergies: Sulfa-facial swelling Social history: Denies illicit drugs, alcohol. Former smoker on and off for 30 years never over 1 pack per day. ROS gen: Denies fever, weight loss. Night sweats 2-3 times per week ongoing for 3-4 months eyes: Denies new or significant vision loss ENT: Slow progression of hearing loss. No difficulty swallowing cardio: Chest pain as above. Denies palpitations respiratory: Shortness of breath as above. Denies hemoptysis GI: Denies significant abdominal pain, nausea, vomiting, diarrhea. G/U: Denies burning with urination or difficulty voiding. MSK: Admits some distal upper extremity pain that she relates to infectious processes. States that she gets neck shoulder and arm pain when she is in an inflammatory state. neuro: States symptoms that sound like radiculopathy. Digits 3, 4, 5 of right hand "stay numb ". *Some historical elements in this document auto populated by the EMR and were not necessarily confirmed with the patient by me A/P Pericardial effusion -Consider secondary to virus -Status post subxiphoid pericardial window and drainage by Dr. Louis on 10/23/18 -As seen on CTA and echo Plan: Colchicine. Leukocytosis -Consider continued inflammation from healing surgical site and resolving pericardial effusion -ESR and CRP elevated. -Blood cultures showed no growth. -10/23/18: Pericardial fluid negative for culture, acid-fast stain, anaerobes. Urine culture negative. -10/24/18 legionella and Streptococcus pneumoniae urine antigens negative. Plan: Blood cultures 2 11/02/18 pending. Antibiotics have been discontinued. Rheumatology following Microscopic hematuria -Consider secondary to nephrolithiasis versus glomerular disease Plan: Rheumatology following. ANCA pending. Hypokalemia -Unknown cause Plan: Replete. Telemetry . Magnesium repletion. Urine potassium and osmolality pending Thrombocytosis -Likely secondary to iron deficiency. Recent possible upper respiratory infection may contribute. Concern for potential malignancy. Plan: Peripheral blood smear pending. Reticulocyte count pending. Hyponatremia -Chronic since at least 10/08/89 -Consider pseudohyponatremia as calculated serum osmolality within normal limits S/Sx -Good turgor. Appears euvolemic Plan: Serum osmolality pending. Urine osmolality and sodium pending. Anemia -Consider anemia of chronic disease -Normocytic. Iron deficiency. -Transferrin saturation and total transferrin low. Iron stores high. ESR elevated. B12 and folate WNL. Plan: IV iron know greater than 1 g in 2 weeks. 200 mg once ordered for 11/04/18. This dose will plan to give 3 times per week. Hypotension -60/40 on general medical floor Plan: MAP has been ranging from 50s to 80s. Asymptomatic. Not on pressors. Continue to monitor Past Med Surg Social Fam HX - Past Medical History Medical history: COPD Additional medical history: Patient reports hypotension. Psychiatric history: depression - Past Surgical History Surgical History: appendectomy, hysterectomy, orthopedic, other (ORIF left humeral fracture), other (Subxiphoid pericardial window, MMK) Additional surgical history: left arm sx. Melissa - Social History Smoking Status: Former smoker Smokeless Tobacco Status: No Alcohol use: none Drug use: none - Family History Mother Living Status: Hx Family Cancer: Yes (Lung) Hx Family Endocrine Disorder: Yes (maternal grandmother DM) Medications and Allergies Duloxetine HCl [Cymbalta] 60 mg PO DAILY 02/27/15 [History] Montelukast [Singulair] 10 mg PO DAILY@2100 10/08/18 [History] Tizanidine HCl [Zanaflex] 4 mg PO QID 10/08/18 [History] LevETIRAcetam [Keppra] 500 mg PO QID 10/22/18 [History] Cholecalciferol (D-3) [Vitamin D] 1,000 unit PO DAILY 10/23/18 [History] diazePAM [Valium] 5 mg PO HS 10/23/18 [History] Budesonide/Formoterol 160/4.5 [Symbicort 160/4.5] 2 puff IH BIDR 30 Days #1 bottle 10/28/18 [Rx] Lactobacillus [Culturelle] 1 each PO BID #10 cap.sprink 10/28/18 [Rx] HYDROcodone/Acet 10/325 mg [Turton 10-325 mg] 1 tab PO QID 11/02/18 [History] Allergy/AdvReac Type Severity Reaction Status Date / Time Sulfa (Sulfonamide AdvReac Nausea Verified 10/23/18 16:28 Antibiotics) Review of Systems: gen: Denies fever, weight loss. Night sweats 2-3 times per week ongoing for 3-4 months eyes: Denies new or significant vision loss ENT: Slow progression of hearing loss. No difficulty swallowing cardio: Chest pain as above. Denies palpitations respiratory: Shortness of breath as above. Denies hemoptysis GI: Denies significant abdominal pain, nausea, vomiting, diarrhea. G/U: Denies burning with urination or difficulty voiding. MSK: Admits some distal upper extremity pain that she relates to infectious processes. States that she gets neck shoulder and arm pain when she is in an inflammatory state. neuro: States symptoms that sound like radiculopathy. Digits 3, 4, 5 of right hand "stay numb ". Physical Examination Vital Signs: Vital Signs, Last 4 Hours Temp Pulse Resp BP Pulse Ox 11/04/18 08:00 66 19 84/49 94 11/04/18 07:28 18 98 11/04/18 07:25 97.5 F L 11/04/18 07:00 58 19 126/60 99 11/04/18 06:00 73 21 104/64 100 11/04/18 05:00 62 19 86/41 100 Gen.: Elderly female. No acute distress Skin: Good turgor. Well-healing Scar from pericardial operations. Eyes: Moist. Anicteric Neck: Hepatojugular reflux. Very difficult to tell whether carotid bruits are present this may just be transmission of the murmur heard below versus overt carotid stenosis. No obvious JVD Cardiac: Regular rate and rhythm. 3/6 systolic murmur best heard over aortic post and worsened with expiration. Respiratory: Right posterior dry middle lobar crackles as well as dry crackles in bilateral lung bases. CTA otherwise. GI: Soft. Nontender Extremities: Capillary refill less than 2 seconds bilateral upper extremities. No lower extremity edema Neuro: Eyes able to track movement. No obvious tremors Psych: Appropriate mood and behavior. Answers questions coherently Results - Laboratory Findings CBC and BMP: 11/04/18 04:00 11/04/18 04:00 PT/INR, D-dimer PT 12.9 Seconds (9.4-12.1) H 11/02/18 13:43 Abnormal lab findings: Abnormal lab results WBC 19.1 K/mcL (4.3-11.1) H 11/04/18 04:00 RBC 2.65 M/mcL (3.82-4.97) L 11/04/18 04:00 Hgb 8.0 g/dL (11.5-15.4) L 11/04/18 04:00 Hct 24.5 % (35.3-44.9) L 11/04/18 04:00 MCHC 31.5 g/dL (31.6-35.5) L 11/02/18 13:43 Plt Count 402 K/mcL (140-400) H 11/04/18 04:00 MPV 8.8 fL (9.4-12.4) L 11/04/18 04:00 Neutrophils # 14.5 K/mcL (1.6-8.9) H 11/03/18 05:40 Monocytes # 1.4 K/mcL (0.0-1.3) H 11/03/18 05:40 ESR 62 mm/hr (0-15) H 11/03/18 14:43 PT 12.9 Seconds (9.4-12.1) H 11/02/18 13:43 VBG pO2 < 17 mmHg (25-50) L 11/02/18 15:19 Sodium 135 mEq/L (136-145) L 11/04/18 04:00 Potassium 3.3 mEq/L (3.5-5.1) L 11/04/18 04:00 Est GFR (Non-Af Amer) 52 (> 60) L 11/04/18 04:00 Glucose 134 mg/dL (70-105) H 11/04/18 04:00 POC Glucose 128 mg/dL (70-99) H 11/03/18 23:07 Calculated Osmolality 274 (280-300) L 11/02/18 13:43 Calcium 8.0 mg/dL (8.6-10.3) L 11/04/18 04:00 Magnesium 1.5 mg/dL (1.6-2.6) L 11/02/18 13:43 Iron 11 mcg/dL (50-170) L 11/03/18 21:45 % Saturation 6 % (15-50) L 11/03/18 21:45 Transferrin 141 mg/dL (203-362) L 11/03/18 21:45 Ferritin 227 ng/mL (10-120) H 11/03/18 21:45 AST 8 Units/L (13-39) L 11/04/18 04:00 ALT 5 Units/L (7-52) L 11/04/18 04:00 C-Reactive Protein 228 mg/L (Less than 10) H 11/03/18 14:43 B-Natriuretic Peptide 422 pg/mL (Less than 100) H 11/02/18 13:43 Serum Total Protein 5.7 g/dL (6.4-8.9) L 11/04/18 04:00 Albumin 2.8 g/dL (3.5-5.7) L 11/04/18 04:00 Albumin/Globulin Ratio 1.0 (1.1-2.2) L 11/04/18 04:00 Urine Blood Large (Negative) H 11/02/18 14:28 Urine Microscopic RBC 5-15 per hpf (0-3) H 11/02/18 14:28 Urine Microscopic WBC 3-5 per hpf (0-3) H 11/02/18 14:28 Ur Squamous Epith Cells Many per lpf (None-Few) H 11/02/18 14:28 Rheumatoid Factor 15 IU/mL (Less than 14) H 11/04/18 04:00 Crossmatch See Detail 11/03/18 Unknown - Microbiology Findings Microbiology Findings: Microbiology, Last 48 Hours 11/02/18 14:10 Blood Culture - Preliminary Peripheral Venipuncture Culture is incubating and being continuously monitored for growth. Final report to follow. 11/02/18 14:10 Blood Culture - Preliminary Peripheral Venipuncture Culture is incubating and being continuously monitored for growth. Final report to follow. - Clinical Findings Intake & Output: Intake & Output 11/03/18 11/04/18 11/04/18 23:59 07:59 15:59 Intake Total 800 / 1000 840 / 840 Balance 800 / 1000 840 / 840 Weight 72.3 kg 72.3 kg Consult Discharge Plan - Plan Referrals: Liss Ching, [employer] [Primary Care Provider] -
--- NOTE | 2018-11-04 09:48 | Infectious Disease Consult ---
Infectious Disease-Consult - Encounter Date/Time Date of Encounter: 11/04/18 Time of Encounter: 09:34 - Data of Consult Patient: new to practice Reason for consult: "Pericardial effusion" Consult date: 11/04/18 Requesting Physician: Robyn Dash MD Primary Care Provider: Liss Ching - [facility] HPI: Ms. Patel is a 68-year-old female with a past medical history of COPD, hypotension, depression, and chronic back pain. The patient was admitted to the hospital 11/02/18 for pneumonia and pericardial effusion. We are consulted 11/04/18 for further workup and treatment recommendations for pericardial effusion. Briefly, the patient is a 68-year-old female with a past medical history as stated above. Patient was hospitalized here back in September and treated for bronchitis and COPD. She was discharged home, came back to the emergency department on 10/22/18 with complaints of shortness of breath and chest pain. She had findings consistent with cardiac tamponade on and was taken to the operating room at 10/23/18 for subxiphoid pericardial window by Dr. Louis. Approximately 400 mL's of brownish fluid was noted in the pericardial sac. Aerobic, anaerobic cultures and AFB were negative. Cytology was negative for malignancy. Pathology report showed chronic inflammation. It does not appear a GMS stain was done. She was treated with 5 days of IV Zosyn while inpatient and discharged home with oral Augmentin. She states the day before admission she noticed that she had some swelling to her lower extremities, headache, low-grade temp, and neck pain. She states the morning of admission she developed chest pain and shortness of breath with a cough with yellow sputum. She presented to the ER for evaluation. Upon arrival, showed MAXIMUM TEMPERATURE of 99.1. She was hypotensive, but was otherwise hemodynamically stable. She had leukocytosis with neutrophilic predominance. Lactic acid and renal function and LFTs were normal. Troponin was negative. BNP was elevated at 422. Urinalysis was posi tive for blood, but negative for pyuria. She had a chest x-ray that showed a decreased small left pleural effusion with left basilar atelectasis. CT of the chest showed a moderate pericardial effusion with possible pericardial thickening and bilateral layering pleural effusions. Blood cultures were obtained 2 sets are negative growth to date. Should her right lower extremity venous duplex that was negative for DVT or SVT. She was started empirically on IV antibiotics and admitted to the hospital for further evaluation. Since admission, she has had persistent leukocytosis. She has had some hypotension despite aggressive IV fluids, but is currently refusing a central line and IV vasopressors. Rheumatology has been consult and ESR is elevated at 62 with CRP of 228. Rheumatoid factor is elevated at 15. C3 and C4 are normal. JOANIE, ANCA, ASO titer, and rapid strep are pending. She had a transthoracic echocardiogram that showed an EF of 60%, small pericardial effusion, and a gelatinous layer overlying the right ventricle without evidence of tamponade. Cardiothoracic surgery was consulted. Echo results were reviewed with the cardiology team and at this point the patient is not scheduled for any surgical intervention. She is not currently on any antibiotics. We have been asked to evaluate and make further recommendations. During my exam today, the patient endorsed history as stated above. She reports low-grade temps, but denies any chills or rigors. She reports chronic night sweats, but denies any weight loss. States she woke up with some chest tightness and a cough productive of yellow sputum the morning of admission, but states it is improved. She complains of bilateral neck pain since having her central line removed after her recent surgery. She reports that intermittently mild headaches, but denies any this time. Denies nausea, vomiting, diarrhea, or constipation. Denies abdominal pain or urinary complaints. Denies oral thrush or skin rashes. Reports chronic back pain as a baseline. She states the swelling to her lower extremities was mainly in her feet and she is unsure how high up and went. She states the swelling seems to better now. The patient lives at home. She does not work outside the home. She denies tobacco, alcohol, or illicit drug use. Denies chronic infectious diseases. Denies any known sick contacts. Denies any travel outside the [facility]. - ROS Review of Systems: All systems reviewed and no additional remarkable complaints except as stated. - Results CBC & Chem 7: 11/04/18 04:00 11/04/18 04:00 - Exam Vitals: Temp Pulse Resp BP Pulse Ox 97.5 F L 81 17 99/54 97 11/04/18 07:25 11/04/18 09:00 11/04/18 09:00 11/04/18 09:00 11/04/18 09:00 Exam: Head: Atraumatic, normal inspection, normocephalic. Eye: EOMI, PERRLA, no scleral icterus noted. ENT: Mucous membranes moist. No odontogenic infection noted. Neck: Normal inspection, no meningismus. Pain with range of motion. Respiratory: Clear to auscultation. No rales, respiratory distress, rhonchi, or wheezes noted. Cardiovascular: Regular rate and rhythm, S1 and S2 audible. No murmurs, rubs, or gallops. GI: Soft, nondistended, normal bowel sounds. Nontender. Extremities:No joint swelling, pedal edema, or tenderness noted. Back: Normal inspection. No vertebral tenderness noted. Neurological: Alert, oriented 3, no focal deficits. Psychiatric: normal affect, normal mood. Skin: Dry, intact, warm. Normal color. No rashes. Well-healed surgical site noted to the subxiphoid region. No erythema, warmth, tenderness, or drainage. Chest tube site with bandage in place. Duloxetine HCl [Cymbalta] 60 mg PO DAILY 02/27/15 [History] Montelukast [Singulair] 10 mg PO DAILY@2100 10/08/18 [History] Tizanidine HCl [Zanaflex] 4 mg PO QID 10/08/18 [History] LevETIRAcetam [Keppra] 500 mg PO QID 10/22/18 [History] Cholecalciferol (D-3) [Vitamin D] 1,000 unit PO DAILY 10/23/18 [History] diazePAM [Valium] 5 mg PO HS 10/23/18 [History] Budesonide/Formoterol 160/4.5 [Symbicort 160/4.5] 2 puff IH BIDR 30 Days #1 bottle 10/28/18 [Rx] Lactobacillus [Culturelle] 1 each PO BID #10 cap.sprink 10/28/18 [Rx] HYDROcodone/Acet 10/325 mg [Brooks 10-325 mg] 1 tab PO QID 11/02/18 [History] Allergy/AdvReac Type Severity Reaction Status Date / Time Sulfa (Sulfonamide AdvReac Nausea Verified 10/23/18 16:28 Antibiotics) - Assessment and Plan (1) Leukocytosis Current Visit: Yes Status: Acute White blood cell count elevated at 18,000 on admission with neutrophilic predominance. Etiology: Unclear. Infectious versus inflammatory versus other. Blood cultures 11/02/18 are no growth to date 2 sets. Afebrile. Qualifiers: Qualified Code(s): D72.829 - Elevated white blood cell count, unspecified SNOMED Code(s): 223888473, 398530140 (2) Hypotension Current Visit: Yes Status: Acute Etiology unclear. Pericardial effusion vs. other. Patient refusing central line for initiation of vasopressors. Qualifiers: Hypotension type: unspecified hypotension type Qualified Code(s): I95.9 - Hypotension, unspecified SNOMED Code(s): 90853581 (3) Pericardial effusion Current Visit: Yes Status: Acute CT of the chest showed a moderate pericardial effusion with pericardial thickening and bilateral layering effusions. Etiology: Unclear. Recurrent. Status post pericardial window 10/23/[address] Louis. 400 mL some brown fluid removed from the pericardial sac. Anaerobic cultures, anaerobic cultures, and AFB were negative. No fungal or GMS stain done. Pathology showed chronic inflammation. Cytology negative for malignancy. Treated with 5 days of IV Zosyn and then 5 days of oral Augmentin. Infectious etiology low on the differential based on the clinical picture. Cardiothoracic surgery consult and following. No operative intervention planned at this time. SNOMED Code(s): 452264619 (4) Anemia Current Visit: Yes Status: Acute Qualifiers: Anemia type: unspecified type Qualified Code(s): D64.9 - Anemia, u nspecified SNOMED Code(s): 249392502 (5) Chronic back pain Current Visit: No Status: Chronic Qualifiers: Back pain location: low back pain Back pain laterality: bilateral Sciatica presence: without sciatica Qualified Code(s): M54.5 - Low back pain; G89.29 - Other chronic pain SNOMED Code(s): 448413853 (6) Anxiety and depression Current Visit: No Status: Chronic SNOMED Code(s): 625783579 (7) COPD (chronic obstructive pulmonary disease) Current Visit: No Status: Chronic Qualifiers: COPD type: unspecified COPD Qualified Code(s): J44.9 - Chronic obstructive pulmonary disease, unspecified SNOMED Code(s): 20758813 - Recommendations Recommendations: Check procalcitonin. Check respiratory infectious panel. Await blood cultures to finalize. Further surgical intervention per the cardiothoracic team. Await further recommendations from the rheumatology team. Observe off antibiotics. At this point, infectious etiology is low on the differential given the clinical picture. We will plan to observe off antibiotics to allow an infectious etiology to reveal itself if there is one. Past Med Surg Social Fam HX - Past Medical History Medical history: COPD Additional medical history: Patient reports hypotension. Psychiatric history: depression - Past Surgical History Surgical History: appendectomy, hysterectomy, orthopedic, other (ORIF left humeral fracture), other (Subxiphoid pericardial window, MMK) Additional surgical history: left arm sx. Melissa - Social History Smoking Status: Former smoker Smokeless Tobacco Status: No Alcohol use: none Drug use: none - Family History Mother Living Status: Hx Family Cancer: Yes (Lung) Hx Family Endocrine Disorder: Yes (maternal grandmother DM) Consult Discharge Plan - Plan Referrals: Liss Ching, [employer] [facility] [Primary Care Provider] -
[2018-11-04] MEDS ORDERED: Iron Sucrose Complex 200 MG in 0.9 % Sodium Chloride 100 ML IVPB ONE (10:30)
[2018-11-04 11:27] LABS: Potassium,Urine 43.9 mEq/L; Sodium, Urine 61.8 mEq/L
[2018-11-04 11:36] LABS: Immature Reticulocyte % 14.4 % (11.0-38.0); Retculocyte # 0.05 M/mcL (0.05-0.10); Reticulocyte % 1.6 % (1.6-2.8)
[2018-11-04 12:12] LABS: Adenovirus Not Detected (Not Detect); Bordetella Pertussis Not Detected (Not Detect); Chlamydophila pneumoniae Not Detected (Not Detect); Coronavirus 229E Not Detected (Not Detect); Coronavirus HKU1 Not Detected (Not Detect); Coronavirus NL63 Not Detected (Not Detect); Coronavirus OC43 Not Detected (Not Detect); Human Metapneumovirus Not Detected (Not Detect); Human Rhinovirus/Enterovirus Not Detected (Not Detect); Influenza A Subtype 2009 H1 Not Detected (Not Detect); Influenza A Untypeable Not Detected (Not Detect); Influenza B Not Detected (Not Detect); Mycoplasma pneumoniae Not Detected (Not Detect); Parainfluenza Virus 1 Not Detected (Not Detect); Parainfluenza Virus 2 Not Detected (Not Detect); Parainfluenza Virus 3 Not Detected (Not Detect); Parainfluenza Virus 4 Not Detected (Not Detect); Respiratory Syncytial Virus Not Detected (Not Detect)
[2018-11-04] MEDS ORDERED: Naloxone 0.4 MG/ML INJ IVP PRN (13:52)
[2018-11-04] MEDS ORDERED: 0.9 % Sodium Chloride 500 ML IVC PRN (13:52)
[2018-11-04] MEDS: Ipratropium/Albuterol Neb 3 ML IH PRN (19:53)
[2018-11-04] MEDS: diazePAM 5 MG TABLET PO SCH (21:12)
[2018-11-04] MEDS: Acetaminophen 325 MG TABLET PO PRN (21:12)
[2018-11-05] MEDS: *HR* HYDROcodone/Acet 10/325 mg TABLET PO SCH ×5 (05:45→23:44)
[2018-11-05] MEDS: tiZANidine 4 MG TABLET PO SCH ×5 (05:46→23:45)
[2018-11-05] MEDS: Budesonide/Formoterol 160/4.5 1 PUFF INH IH SCH ×2 (07:50→19:42)
[2018-11-05] MEDS: Cholecalciferol (D-3) 1,000 UNIT (25MCG) TABLET PO SCH (08:50)
[2018-11-05] MEDS: Lactobacillus 1 EACH CAP.SPRINK PO SCH ×2 (08:51→20:47)
[2018-11-05] MEDS: Colchicine 0.6 MG TABLET PO SCH (08:51)
[2018-11-05] MEDS: levETIRAcetam 250 MG TABLET PO SCH ×4 (08:57→20:46)
--- NOTE | 2018-11-05 13:27 | Event Note ---
Date of Encounter: 11/05/18 Time of Encounter: 13:26 Additional workup noted and reviewed. Blood cultures remain no growth. Procalcitonin normal. RIP negative. No fever. WBC not checked today. At this point, I do not feel that the patient's symptoms are infectious-related. No further recommendations from the ID team. We will sign off. Please re-consult PRN.
--- NOTE | 2018-11-05 17:27 | Internal Med Progress Note ---
Hospitalist Progress Note - Encounter Date of Encounter: 11/05/18 Time of Encounter: 17:25 - Subjective Interval History: No acute events overnight. Patient has been afebrile. She maintains that she still feels ill and weak. - Exam Vitals: Temp Pulse Resp BP Pulse Ox 35.8 C L 86 16 111/59 99 11/05/18 15:15 11/05/18 15:15 11/05/18 15:15 11/05/18 15:15 11/05/18 15:15 Exam: GENERAL: Not in distress. Alert and Oriented HEENT: EOMI, PERRLA MOUTH: Moist mucosa NECK:No JVD, No lymph nodes. CHEST AND LUNGS: Normal breath sounds, no wheezes or crackles HEART: S1 and S2 normal, no murmurs ABDOMEN: Soft, nontender, no organomegaly SKIN: Normal color, no rahses, no lesions EXTREMITIES: No deformity, no edema, no tenderness, no joint swelling or clubbing NEUROLOGICAL: Normal cognition, normal motor and sensory exam. - Assessment and Plan (1) Anemia Current Visit: Yes Status: Acute Assessment and Plan: Patient has normocytic anemia that seems chronic Tiffany panel shows a mixed picture of iron deficiency anemia and anemia of chronic disease A transferrin is 227 wild iron concentration is 11 We will consider iron supplementation Will continue to evaluate for possible source of inflammatory anemia. Could be from pericarditis. (2) Leukocytosis Current Visit: Yes Status: Acute Assessment and Plan: Labs WBC was 19 CBC not done today Patient is afebrile, not tachycardic, and normotensive The infectious disease team does not believe that patient's symptoms and leukocytosis is due to an infective course There is no growth on blood culture, protocol stone and is normal We will monitor patient for further symptoms (3) Pericardial effusion Current Visit: Yes Status: Acute Assessment and Plan: Patient recently had a pericardial window placed on account of a cardiac component Imaging on this visit shows some mild pericardial effusion She is currently on colchicine Cardiology is following No surgical intervention planned at this time (4) COPD (chronic obstructive pulmonary disease) Current Visit: No Status: Chronic Assessment and Plan: Patient currently denies shortness of breath, wheezing and cough We will give when necessary breathing treatments Monitor (5) Hypokalemia Current Visit: Yes Status: Acute Assessment and Plan: Potassium was 3.3 We will correct Monitor DVT Prophylaxis: SCD - Time Spent with Patient Total time spent is greater than 50% in coordination of care (as documented) at patient's floor/unit and/or counseling patient: Internal Medicine: Result - Labs CBC & Chem 7: 11/04/18 04:00 11/04/18 04:00 - ABG Interpretation ABG results: PT/INR, D-dimer PT 12.9 Seconds (9.4-12.1) H 11/02/18 13:43 Consult Discharge Plan - Plan Referrals: Liss Ching CNP [Primary Care Provider] - __ (1) Anemia Qualifiers: Anemia type: unspecified type Qualified Code(s): D64.9 - Anemia, unspecified (2) Leukocytosis Qualifiers: Qualified Code(s): D72.829 - Elevated white blood cell count, unspecified (4) COPD (chronic obstructive pulmonary disease) Qualifiers: COPD type: unspecified COPD Qualified Code(s): J44.9 - Chronic obstructive pulmonary disease, unspecified
[2018-11-05] MEDS: diazePAM 5 MG TABLET PO SCH (20:47)
[2018-11-06] MEDS: Ipratropium/Albuterol Neb 3 ML IH PRN ×2 (00:17→22:01)
[2018-11-06 04:18] LABS: Basophils # 0.1 K/mcL (0.0-0.2); Basophils % 0.4 %; Eosinophils # 0.2 K/mcL (0.0-0.6); Eosinophils % 1.7 %; Hematocrit 25.8 % (35.3-44.9); Immature Granulocytes % 0.5 % (0-4); Immature Platelets 1.2 % (1.1-6.1); Lymphocytes # 2.5 K/mcL (0.6-4.6); Lymphocytes % 17.2 %; Mean Corpuscular Hemoglobin 29.1 pg (28.0-33.3); Mean Corpuscular Volume 93.8 fL (83.0-100.0); Mean Platelet Volume 8.5 fL (9.4-12.4); Monocytes # 1.1 K/mcL (0.0-1.3); Monocytes % 7.6 %; Neutrophils # 10.4 K/mcL (1.6-8.9); Platelet Count 610 K/mcL (140-400); Red Blood Count 2.75 M/mcL (3.82-4.97); Red Cell Distribution Width 13.8 % (11.5-14.5); Segmented Neutrophils % 72.6 %; White Blood Count 14.3 K/mcL (4.3-11.1)
[2018-11-06 04:40] LABS: BUN/Creatinine Ratio 19 (6-26); Blood Urea Nitrogen 14 mg/dL (8-23); Calcium 8.9 mg/dL (8.6-10.3); Carbon Dioxide 26 mEq/L (23-29); Chloride 103 mEq/L (98-107); Glucose 120 mg/dL (70-105); Osmolality,Calculated 284 (280-300); Potassium 4.3 mEq/L (3.5-5.1); Sodium 136 mEq/L (136-145); eGFR For African Americans > 60 (> 60); eGFR For Non-African Americans > 60 (> 60)
[2018-11-06 04:49] LABS: Magnesium 1.8 mg/dL (1.6-2.6)
[2018-11-06] MEDS: tiZANidine 4 MG TABLET PO SCH ×3 (06:09→17:46)
[2018-11-06] MEDS: *HR* HYDROcodone/Acet 10/325 mg TABLET PO SCH ×3 (06:09→17:46)
[2018-11-06] MEDS: *HR* Metoprolol 5 MG/5 ML VIAL IVP ONE (07:03)
[2018-11-06] MEDS: Budesonide/Formoterol 160/4.5 1 PUFF INH IH SCH ×2 (07:54→22:01)
[2018-11-06] MEDS: levETIRAcetam 250 MG TABLET PO SCH ×4 (08:24→20:55)
[2018-11-06] MEDS: Lactobacillus 1 EACH CAP.SPRINK PO SCH ×2 (08:24→20:55)
[2018-11-06] MEDS: Colchicine 0.6 MG TABLET PO SCH (08:24)
[2018-11-06] MEDS: Cholecalciferol (D-3) 1,000 UNIT (25MCG) TABLET PO SCH (08:24)
[2018-11-06 09:29] LABS: ANA IgG by ELISA NONE DETECTED (None Detected)
[2018-11-06 09:33] LABS: Serine Protease-3 Antibody 1 AU/mL (0-19)
[2018-11-06] MEDS ORDERED: Iron Sucrose Complex 200 MG in 0.9 % Sodium Chloride 100 ML IVPB ONE (10:31)
--- NOTE | 2018-11-06 11:35 | Internal Med Progress Note ---
Hospitalist Progress Note - Encounter Date of Encounter: 11/06/18 Time of Encounter: 11:33 - Subjective Interval History: No acute events. Patient endorses that she feel much better today. She denies, fever, chills, chest pain and SOB. - Exam Vitals: Temp Pulse Resp BP Pulse Ox 36.8 C 136 16 115/72 100 11/06/18 06:51 11/06/18 06:51 11/06/18 07:56 11/06/18 06:51 11/06/18 07:56 Exam: GENERAL: Not in distress. Alert and Oriented HEENT: EOMI, PERRLA MOUTH: Moist mucosa NECK:No JVD, No lymph nodes. CHEST AND LUNGS: Normal breath sounds, no wheezes or crackles HEART: S1 and S2 normal, no murmurs ABDOMEN: Soft, nontender, no organomegaly SKIN: Normal color, no rahses, no lesions EXTREMITIES: No deformity, no edema, no tenderness, no joint swelling or clubbing NEUROLOGICAL: Normal cognition, normal motor and sensory exam. - Assessment and Plan (1) Anemia Current Visit: Yes Status: Acute Assessment and Plan: Patient has normocytic anemia that seems chronic Tiffany panel shows a mixed picture of iron deficiency anemia and anemia of chronic disease A transferrin is 227 wild iron concentration is 11 We will consider iron supplementation Will continue to evaluate for possible source of inflammatory anemia. IV iron supplementation ordered by pulmo. (2) Leukocytosis Current Visit: Yes Status: Acute Assessment and Plan: WBC dwontrending. 1.3 today. Patient is afebrile, not tachycardic, and normotensive The infectious disease team does not believe that patient's symptoms and leukocytosis is due to an infective course There is no growth on blood culture, protocol stone and is normal We will monitor patient for further symptoms (3) Pericardial effusion Current Visit: Yes Status: Acute Assessment and Plan: Patient recently had a pericardial window placed on account of a cardiac component Imaging on this visit shows some mild pericardial effusion She is currently on colchicine Cardiology is following No surgical intervention planned at this time (4) COPD (chronic obstructive pulmonary disease) Current Visit: No Status: Chronic Assessment and Plan: Patient currently denies shortness of breath, wheezing and cough We will give when necessary breathing treatments Monitor (5) Hypokalemia Current Visit: Yes Status: Resolved Assessment and Plan: Hypokalemia has resolved. Potassium of 4.3 today. - Time Spent with Patient Total time spent is greater than 50% in coordination of care (as documented) at patient's floor/unit and/or counseling patient: Internal Medicine: Result - Labs CBC & Chem 7: 11/06/18 04:00 11/06/18 04:00 Labs: Short CBC 11/06/18 Range/Units 04:00 WBC 14.3 H (4.3-11.1) K/mcL Hgb 8.0 L (11.5-15.4) g/dL Hct 25.8 L (35.3-44.9) % Plt Count 610 H D (140-400) K/mcL Neutrophils # 10.4 H (1.6-8.9) K/mcL BMP 11/06/18 04:00 Sodium 136 Potassium 4.3 Chloride 103 Carbon Dioxide 26 BUN 14 Creatinine 0.75 Glucose 120 H Calcium 8.9 - ABG Interpretation ABG results: PT/INR, D-dimer PT 12.9 Seconds (9.4-12.1) H 11/02/18 13:43 Consult Discharge Plan - Plan Referrals: Liss Ching CNP [Primary Care Provider] - (1) Anemia Qualifiers: Anemia type: unspecified type Qualified Code(s): D64.9 - Anemia, unspecified (2) Leukocytosis Qualifiers: Qualified Code(s): D72.829 - Elevated white blood cell count, unspecified (4) COPD (chronic obstructive pulmonary disease) Qualifiers: COPD type: unspecified COPD Qualified Code(s): J44.9 - Chronic obstructive pulmonary disease, unspecified
[2018-11-06] MEDS: diazePAM 5 MG TABLET PO SCH (20:55)
[2018-11-07] MEDS: *HR* HYDROcodone/Acet 10/325 mg TABLET PO SCH ×5 (00:12→23:59)
[2018-11-07] MEDS: tiZANidine 4 MG TABLET PO SCH ×4 (00:12→17:58)
[2018-11-07 03:35] LABS: Basophils # 0.1 K/mcL (0.0-0.2); Basophils % 0.4 %; Eosinophils # 0.4 K/mcL (0.0-0.6); Hematocrit 24.8 % (35.3-44.9); Hemoglobin 7.7 g/dL (11.5-15.4); Immature Granulocytes % 0.4 % (0-4); Lymphocytes # 2.4 K/mcL (0.6-4.6); Lymphocytes % 20.5 %; Mean Corpuscular Hemoglobin 29.7 pg (28.0-33.3); Mean Corpuscular Volume 95.8 fL (83.0-100.0); Mean Platelet Volume 8.5 fL (9.4-12.4); Monocytes % 8.3 %; Neutrophils # 7.7 K/mcL (1.6-8.9); Platelet Count 496 K/mcL (140-400); Red Blood Count 2.59 M/mcL (3.82-4.97); Red Cell Distribution Width 13.7 % (11.5-14.5); Segmented Neutrophils % 67.4 %; White Blood Count 11.5 K/mcL (4.3-11.1)
[2018-11-07 03:44] LABS: BUN/Creatinine Ratio 20 (6-26); Blood Urea Nitrogen 14 mg/dL (8-23); Calcium 8.8 mg/dL (8.6-10.3); Carbon Dioxide 27 mEq/L (23-29); Chloride 104 mEq/L (98-107); Glucose 121 mg/dL (70-105); Osmolality,Calculated 284 (280-300); Potassium 4.5 mEq/L (3.5-5.1); Sodium 136 mEq/L (136-145); eGFR For African Americans > 60 (> 60); eGFR For Non-African Americans > 60 (> 60)
[2018-11-07] MEDS: Acetaminophen 325 MG TABLET PO PRN (03:45)
[2018-11-07] MEDS ORDERED: *HR* Metoprolol 5 MG/5 ML VIAL IVP ONE ×4 (03:58→08:06)
[2018-11-07] MEDS: *HR* Metoprolol 5 MG/5 ML VIAL IVP ONE (04:02)
[2018-11-07] MEDS: Budesonide/Formoterol 160/4.5 1 PUFF INH IH SCH ×2 (07:49→21:41)
[2018-11-07] MEDS: Lactobacillus 1 EACH CAP.SPRINK PO SCH ×2 (08:03→20:48)
[2018-11-07] MEDS: Cholecalciferol (D-3) 1,000 UNIT (25MCG) TABLET PO SCH (08:03)
[2018-11-07] MEDS: Colchicine 0.6 MG TABLET PO SCH (08:03)
[2018-11-07] MEDS: levETIRAcetam 250 MG TABLET PO SCH ×4 (08:03→20:48)
--- NOTE | 2018-11-07 10:35 | Internal Med Progress Note ---
Hospitalist Progress Note - Encounter Date of Encounter: 11/07/18 Time of Encounter: 10:33 - Subjective Interval History: Heart rate went into the 130-150s overnight. She is however not in distress and has no complaints. Denies chest pain, palpitations and SOB. - Exam Vitals: Temp Pulse Resp BP Pulse Ox 36.4 C L 133 92 94/62 96 11/07/18 08:34 11/07/18 08:34 11/07/18 08:34 11/07/18 08:34 11/07/18 07:51 Exam: GENERAL: Not in distress. Alert and Oriented HEENT: EOMI, PERRLA MOUTH: Moist mucosa NECK:No JVD, No lymph nodes. CHEST AND LUNGS: Normal breath sounds, no wheezes or crackles HEART: S1 and S2 normal, rapid rate, no murmurs ABDOMEN: Soft, nontender, no organomegaly SKIN: Normal color, no rahses, no lesions EXTREMITIES: No deformity, no edema, no tenderness, no joint swelling or clubbing NEUROLOGICAL: Normal cognition, normal motor and sensory exam. - Assessment and Plan (1) Atrial flutter with rapid ventricular response Current Visit: Yes Status: Acute Assessment and Plan: Patient became tachycardic overnight and received 2 doses of IV lopressor. She denies chest pain, palpitations, SOB and lightheadedness. Heart rate still in 130s this morning. I gave a 3rd dose of 5mg IV lopressor Will start cardizem drip Inform cardiology. (2) Anemia Current Visit: Yes Status: Acute Assessment and Plan: Patient has normocytic anemia that seems chronic Patient states that she has been anemic for about 20 years. She has never had a colonoscopy, mammogram or any other age appropriate screening because she personally has never wanted them. Iron panel shows a mixed picture of iron deficiency anemia and anemia of chronic disease A transferrin is 227 wild iron concentration is 11 We will consider iron supplementation Will continue to evaluate for possible source of inflammatory anemia. IV iron supplementation given Will order FOBT. (3) Leukocytosis Current Visit: Yes Status: Acute Assessment and Plan: WBC downtrending. 11.5 tody from 14.3 yesterday today. Patient is afebrile, not tachycardic, and normotensive The infectious disease team does not believe that patient's symptoms and leukocytosis is due to an infective course There is no growth on blood culture, protocol stone and is normal We will monitor patient for further symptoms (4) Pericardial effusion Current Visit: Yes Status: Acute Assessment and Plan: Patient recently had a pericardial window placed on account of a cardiac component Imaging on this visit shows some mild pericardial effusion She is currently on colchicine Seen by cardiothoracic surgery No surgical intervention planned at this time (5) COPD (chronic obstructive pulmonary disease) Current Visit: No Status: Chronic Assessment and Plan: Patient currently denies shortness of breath, wheezing and cough We will give when necessary breathing treatments Monitor DVT Prophylaxis: SCD - Time Spent with Patient Total time spent is greater than 50% in coordination of care (as documented) at patient's floor/unit and/or counseling patient: Internal Medicine: Result - Labs CBC & Chem 7: 11/07/18 03:15 11/07/18 03:15 Labs: Short CBC 11/07/18 Range/Units 03:15 WBC 11.5 H (4.3-11.1) K/mcL Hgb 7.7 L (11.5-15.4) g/dL Hct 24.8 L (35.3-44.9) % Plt Count 496 H (140-400) K/mcL Neutrophils # 7.7 (1.6-8.9) K/mcL BMP 11/07/18 03:15 Sodium 136 Potassium 4.5 Chloride 104 Carbon Dioxide 27 BUN 14 Creatinine 0.69 Glucose 121 H Calcium 8.8 - ABG Interpretation ABG results: PT/INR, D-dimer PT 12.9 Seconds (9.4-12.1) H 11/02/18 13:43 Consult Discharge Plan - Plan Referrals: Liss Ching, [employer] [Primary Care Provider] - (2) Anemia Qualifiers: Anemia type: unspecified type Qualified Code(s): D64.9 - Anemia, unspecified (3) Leukocytosis Qualifiers: Qualified Code(s): D72.829 - Elevated white blood cell count, unspecified (5) COPD (chronic obstructive pulmonary disease) Qualifiers: COPD type: unspecified COPD Qualified Code(s): J44.9 - Chronic obstructive pulmonary disease, unspecified
[2018-11-07] MEDS: *HR* Digoxin 0.5 MG/2 ML AMPUL IVP SCH ×2 (13:12→18:06)
[2018-11-07] MEDS: *HR* Metoprolol 5 MG/5 ML VIAL IVP PRN ×2 (14:34→20:51)
[2018-11-07] MEDS: diazePAM 5 MG TABLET PO SCH (20:48)
[2018-11-08] MEDS: *HR* Digoxin 0.5 MG/2 ML AMPUL IVP SCH ×3 (00:01→06:28)
[2018-11-08 03:00] LABS: Basophils # 0.1 K/mcL (0.0-0.2); Basophils % 0.5 %; Eosinophils # 0.6 K/mcL (0.0-0.6); Eosinophils % 5.6 %; Hemoglobin 8.1 g/dL (11.5-15.4); Immature Granulocytes % 0.3 % (0-4); Lymphocytes % 26.7 %; Mean Corpuscular HGB Conc 31.2 g/dL (31.6-35.5); Mean Corpuscular Hemoglobin 29.2 pg (28.0-33.3); Mean Corpuscular Volume 93.9 fL (83.0-100.0); Mean Platelet Volume 8.6 fL (9.4-12.4); Neutrophils # 6.6 K/mcL (1.6-8.9); Platelet Count 612 K/mcL (140-400); Red Blood Count 2.77 M/mcL (3.82-4.97); Red Cell Distribution Width 13.7 % (11.5-14.5); Segmented Neutrophils % 57.9 %; White Blood Count 11.4 K/mcL (4.3-11.1)
[2018-11-08 03:05] LABS: BUN/Creatinine Ratio 21 (6-26); Blood Urea Nitrogen 15 mg/dL (8-23); Calcium 8.6 mg/dL (8.6-10.3); Carbon Dioxide 28 mEq/L (23-29); Chloride 102 mEq/L (98-107); Glucose 121 mg/dL (70-105); Osmolality,Calculated 286 (280-300); Potassium 4.5 mEq/L (3.5-5.1); Sodium 137 mEq/L (136-145); eGFR For African Americans > 60 (> 60); eGFR For Non-African Americans > 60 (> 60)
[2018-11-08] MEDS: tiZANidine 4 MG TABLET PO SCH ×5 (05:33→23:48)
[2018-11-08] MEDS: *HR* HYDROcodone/Acet 10/325 mg TABLET PO SCH ×4 (05:33→23:47)
[2018-11-08] MEDS: Budesonide/Formoterol 160/4.5 1 PUFF INH IH SCH ×2 (07:25→20:23)
[2018-11-08] MEDS: Cholecalciferol (D-3) 1,000 UNIT (25MCG) TABLET PO SCH (07:55)
[2018-11-08] MEDS: Colchicine 0.6 MG TABLET PO SCH (07:56)
[2018-11-08] MEDS: Lactobacillus 1 EACH CAP.SPRINK PO SCH ×2 (07:56→20:53)
[2018-11-08] MEDS: levETIRAcetam 250 MG TABLET PO SCH ×4 (07:57→20:52)
[2018-11-08] MEDS: Ipratropium/Albuterol Neb 3 ML IH PRN (12:05)
[2018-11-08] MEDS ORDERED: Nitroglycerin 0.4 MG TAB.SUBL SL ONE (12:10)
[2018-11-08] MEDS: Nitroglycerin 0.4 MG TAB.SUBL SL PRN (12:14)
[2018-11-08] MEDS ORDERED: Ketorolac 30 MG/ML VIAL IM ONE (12:14)
--- NOTE | 2018-11-08 13:29 | Cardiology Progress Note ---
Date of Encounter: 11/08/18 Time of Encounter: 13:30 Assessment and Plan (1) Pericardial effusion Current Visit: Yes Status: Acute Per Cardiology: Previous medical records reviewed : S/p subxiphoid pericardial window on 10/23/2018 with removal of 400ml fluid. Seen by CT surgery. ID following. Consider further workup to identify source of effusion. On colchicine for possible pericarditis. Patient now with a flutter with RVR. Discussed and reviewed with Dr. Blum, will attempt repeat limited echo to assess the effusion once better rate controlled. Patient is DNR/DNI/CCA. (2) Atrial flutter with rapid ventricular response Current Visit: Yes Status: Acute Per Cardiology: Apparent new onset atrial flutter, patient denies known history. However upon review patient did have atrial flutter September 2017 of which cardiology was not consulted. Currently a flutter fluctuating 80s to 140s on telemetry. Off Cardizem drip. Status post digoxin load, however only received 3 of 4 ordered doses-- RN reports forth dose held due to bradycardia. On Lopressor 25 mg by mouth twice a day. Current systolic blood pressures in the 130s. Will increase Lopressor to 50 mg by mouth twice a day continue to attempt rate control. Again will repeat echo once heart rate controlled to reassess effusion for possible underlying cause. (3) Anemia Current Visit: Yes Status: Acute Per Cardiology: No previous H&H noted prior to recent hospital stays the past 2 months. Did receive blood transfusion earlier during hospital stay. Currently not on anticoagulation. Patient aware of increased stroke risk. We will need to evaluate long-term anticoagulation prior to discharge. Qualifiers: Anemia type: unspecified type Qualified Code(s): D64.9 - Anemia, unspecifi ed Discussion w patient/family: The assessment and plan as outlined above was discussed with the patient and/or family members who expressed understanding and agreement. All questions were answered. Thank you for involving us in the care of your patient. Please call with any questions. Subjective Principal diagnosis: Aflutter with RVR Interval history: Patient denies any current chest pain. Reports had midsternal chest pressure/heaviness and squeezing sensation earlier today that has now resolved. She denies any palpitations or fluttering sensations. Reports some mild short of breath. Denies any awareness to any active bleeding or blood loss. Prior to admission denies any falls. Did receive blood transfusion last week, prior to that has not received blood transfusion. Denies any known history of atrial fibrillation or atrial flutter. Denies any current fever, chills, nausea, vomiting, diarrhea. Objective Vital Signs, Last 4 Hours Resp Pulse Ox 11/08/18 12:09 18 97 Selected Entries 11/08/18 07:14 11/08/18 12:09 Temperature 97.7 F Pulse Rate 74 Respiratory Rate 18 Blood Pressure 105/64 O2 Sat by Pulse Oximetry 97 Oxygen Flow Rate (LPM) 2 Oxygen Delivery Method Nasal Cannula General: Conversant, No Apparent Distress HEENT: Atraumatic, Normocephaly, Mucus Membranes Moist Neck: No JVD, Normal carotid pulses Cardiac: No Murmur, Other (Irregularly irregular) Lungs: Normal Breath Sounds, No Wheeze, Rales, Rhonchi Neuro: Alert and responsive, No focal deficits noted Abdomen: Soft, Non-Tender Skin: No rashes noted on visualized skin Musculoskeletal: No Chest Wall Tenderness Extremities: No Clubbing, No Cyanosis, No Edema, Normal Pulses Results 11/08/18 02:35 11/08/18 02:35 Lab Results Laboratory Tests 11/02/18 11/03/18 11/04/18 13:43 05:40 04:00 WBC 18.6 H Hgb 8.1 L D 6.8 L Plt Count Potassium Creatinine Est GFR (Non-Af Amer) Magnesium AST 8 L ALT 5 L Troponin I 11/06/18 11/08/18 11/08/18 04:00 02:35 02:35 WBC 11.4 H Hgb 8.1 L Plt Count 612 H Potassium 4.5 Creatinine 0.70 Est GFR (Non-Af Amer) > 60 Magnesium 1.8 AST ALT Troponin I 11/08/18 12:19 WBC Hgb Plt Count Potassium Creatinine Est GFR (Non-Af Amer) Magnesium AST ALT Troponin I < 0.03 ITS Impressions Chest X-Ray 11/02/18 13:43 IMPRESSION: Interval decrease in size of small left pleural effusion with left basilar atelectasis. D/ / Marshall Chávez / Marshall Chávez Interpreting Provider: Marshall Chávez Chest CT 11/02/18 20:18 IMPRESSION: Moderate pericardial effusion increased in amount compared to prior examination with possible pericardial thickening. Findings may represent pericarditis. Bilateral layering pleural effusions, new since prior examination, likely related to CHF from the suspected pericarditis and pericardial effusion. Small subcentimeter mediastinal lymph nodes, likely reactive. No pathologically enlarged lymphadenopathy. Incidentally noted benign 15 mm left adrenal adenoma. Superior endplate T10 and T11 compression fractures, stable since at least 10/08/2018 but possibly chronic. D/ / 11/02/2018 22:31:38 Ramu Lopez MD / earnold Interpreting Provider: Ramu Lopez MD Echocardiogram Limited Views 11/03/18 09:57 Impressions: Technically sub-optimal due to poor echocardiographic windows. LVEF 60%. Normal LV chamber size, wall thickness and function. There appears to be a gelatinous appearing material and a small pericardial effusion adjacent to the anterior potion of the RV and around the apex. The effusion appears trivial elsewhere. There is no echocardiographic evidence of tamponade. Left Ventricular Wall Motion: Rest Echo Findings All wall segments showed normal motion. Findings: Study Quality * Technically sub-optimal due to poor echocardiographic windows. ECG Findings * Normal sinus rhythm. Left Ventricle * LVEF 60%. * Normal LV chamber size, wall thickness and function. Right Ventricle * Normal right ventricular structure and function. Pericardium * There appears to be a gelatinous appearing material and a small pericardial effusion adjacent to the anterior potion of the RV and around the apex. The effusion appears trivial elsewhere. * There is no echocardiographic evidence of tamponade. IVC * Normal IVC dimensions and inspiratory collapse. Intake & Output 11/05/18 11/06/18 11/07/18 11/08/18 23:59 23:59 23:59 23:59 Intake Total 1320 / 1320 950 / 950 1855.0 / 1855.0 585 / 585 Output Total 2450 / 2450 1000 / 1000 Balance 1320 / 1320 950 / 950 -595.0 / -595.0 -415 / -415 Weight 75.5 kg 75.5 kg 75.4 kg 65.6 kg Active Medications Acetaminophen (Tylenol) 325 mg PO Q4HR PRN PRN Reason: Pain Stop: 05/06/19 17:35 Last Admin: 11/07/18 03:45 Dose: 325 mg Documented by: Hydrocodone Bitart/Acetaminophen ([place] 10-325 Mg) 1 each PO 0000,0600,1200,1800 [facility] Stop: 05/05/19 03:46 Last Admin: 11/08/18 11:51 Dose: 1 each Documented by: Albuterol/Ipratropium (Duoneb) 3 ml IH [id number] PRN PRN Reason: Shortness Of Breath/Wheezing Stop: 05/06/19 18:41 Last Admin: 11/08/18 12:05 Dose: 3 ml Documented by: Budesonide/Formoterol Fumarate (Symbicort) 2 puff IH BIDR [facility]; Protocol Stop: 05/05/19 10:01 Last Admin: 11/08/18 07:25 Dose: 2 puff Documented by: Colchicine (Colcrys) 0.6 mg PO DAILY [facility] Stop: 05/05/19 15:16 Last Admin: 11/08/18 07:56 Dose: 0.6 mg Documented by: Diazepam (Valium) 5 mg PO HS [facility] Stop: 05/05/19 21:01 Last Admin: 11/07/18 20:48 Dose: 5 mg Documented by: Docusate Sodium (Colace) 100 mg PO BID@0800,1700 [facility]; Protocol Stop: 05/06/19 12:01 Last Admin: 11/08/18 07:56 Dose: 100 mg Documented by: Duloxetine HCl (Cymbalta) 60 mg PO DAILY [facility] Stop: 05/05/19 09:01 Last Admin: 11/08/18 08:00 Dose: 60 mg Documented by: Ferrous Sulfate (Ferrous Sulfate) 325 mg PO DAILY@0800 [facility] Stop: 05/11/19 08:01 Sodium Chloride (0.9 % Sodium Chloride) 500 mls @ 1,000 mls/hr IVC .Q30M PRN PRN Reason: Blood Pressure Diltiazem HCl 125 mg/ Sodium (Chloride) 125 mls @ 5 mls/hr IVC CONT [facility]; Protocol Stop: 05/09/19 09:01 Last Infusion: 11/08/18 02:03 Dose: 0 mg/hr, 0 mls/hr Documented by: Lactobacillus Acidophilus/Rhamnosus (Culturelle) 1 each PO BID [facility] Stop: 05/05/19 09:01 Last Admin: 11/08/18 07:56 Dose: 1 each Documented by: Levetiracetam (Keppra) 500 mg PO QID [facility] Stop: 05/05/19 14:01 Last Admin: 11/08/18 11:52 Dose: 500 mg Documented by: Metoprolol Tartrate (Lopressor) 25 mg PO BID [facility] Stop: 05/09/19 21:01 Last Admin: 11/08/18 07:56 Dose: 25 mg Documented by: Metoprolol Tartrate (Lopressor) 5 mg IVP Q6HR PRN PRN Reason: Tachyarrhythmias Stop: 05/09/19 18:01 Last Admin: 11/07/18 20:51 Dose: 5 mg Documented by: Montelukast Sodium (Singulair) 10 mg PO DAILY@2100 [facility] Stop: 05/05/19 21:01 Last Admin: 11/07/18 20:51 Dose: 10 mg Documented by: Naloxone HCl (Narcan) 0.4 mg IVP Q2MPRN PRN PRN Reason: SEE COMMENTS Stop: 05/04/19 23:13 Nitroglycerin (Nitroglycerin) 0.4 mg SL Q5MPRN PRN PRN Reason: Chest Pain Stop: 05/10/19 12:10 Last Admin: 11/08/18 12:14 Dose: 0.4 mg Documented by: Tizanidine HCl (Zanaflex) 4 mg PO 0000,0600,1200,1800 [facility] Stop: 05/05/19 03:46 Last Admin: 11/08/18 11:51 Dose: 4 mg Documented by: Vitamin D (Vitamin D) 1,000 unit PO DAILY [facility] Stop: 05/05/19 09:01 Last Admin: 11/08/18 07:55 Dose: 1,000 unit Documented by: - Imaging and Cardiology Echo: report reviewed Consult Discharge Plan - Plan Referrals: Liss Ching CNP [Primary Care Provider] -
--- NOTE | 2018-11-08 13:42 | Internal Med Progress Note ---
Hospitalist Progress Note - Encounter Date of Encounter: 11/08/18 Time of Encounter: 07:45 - Subjective Interval History: No acute events overnight but reported left sided crushing chest pain requiring Nitrostat and toradol for relief. Her troponin came out negative and EKG was significant for rate controlled flutter. No significant ST-t wave changes seen. Patient is tearful and states she is frustrated about being sick. - Exam Vitals: Temp Pulse Resp BP Pulse Ox 36.5 C 74 18 105/64 97 11/08/18 07:14 11/08/18 07:14 11/08/18 12:09 11/08/18 07:14 11/08/18 12:09 Exam: GENERAL: Moderate distress. Alert and Oriented HEENT: EOMI, PERRLA MOUTH: Moist mucosa NECK:No JVD, No lymph nodes. CHEST AND LUNGS: Normal breath sounds, no wheezes or crackles HEART: S1 and S2 normal, rapid regular rate, no murmurs ABDOMEN: Soft, nontender, no organomegaly SKIN: Normal color, no rahses, no lesions EXTREMITIES: No deformity, no edema, no tenderness, no joint swelling or clubbing NEUROLOGICAL: Normal cognition, normal motor and sensory exam [place]: Patient is sad. - Assessment and Plan (1) Atrial flutter with rapid ventricular response Current Visit: Yes Status: Acute Assessment and Plan: Rate fluctuates between 80s and 140s Cardio has seen and reviewed. She received 3 out of 4 doses of digoxin yesterday. Was discontinued on account of bradycardia She is on Lopressor 25 mg twice a day which has been increased to 50 mg twice a day by cardio Echo will be repeated once rate is controlled (2) Anemia Current Visit: Yes Status: Acute Assessment and Plan: Patient has normocytic anemia that seems chronic Patient states that she has been anemic for about 20 years. She has never had a colonoscopy, mammogram or any other age appropriate screening because she personally has never wanted them. Iron panel shows a mixed picture of iron deficiency anemia and anemia of chronic disease A transferrin is 227 wild iron concentration is 11 Patient has been started on iron supplementation. Await FOBT (3) Leukocytosis Current Visit: Yes Status: Acute Assessment and Plan: WBC downtrending. 11.4 today. Patient is afebrile, not tachycardic, and normotensive There is no growth on blood culture We will monitor patient for further symptoms (4) Pericardial effusion Current Visit: Yes Status: Acute Assessment and Plan: patient complained of pressure-like chest pain this morning Pain resolved after given a dose of Toradol and Nitrostat EKG showed atrial flutter Troponin negative Pain most likely related to patient's pericarditis (5) COPD (chronic obstructive pulmonary disease) Current Visit: No Status: Chronic Assessment and Plan: Patient currently denies shortness of breath, wheezing and cough We will give when necessary breathing treatments Monitor DVT Prophylaxis: SCD - Time Spent with Patient Total time spent is greater than 50% in coordination of care (as documented) at patient's floor/unit and/or counseling patient: Internal Medicine: Result - Labs CBC & Chem 7: 11/08/18 02:35 11/08/18 02:35 Labs: Short CBC 11/08/18 Range/Units 02:35 WBC 11.4 H (4.3-11.1) K/mcL Hgb 8.1 L (11.5-15.4) g/dL Hct 26.0 L (35.3-44.9) % Plt Count 612 H (140-400) K/mcL Neutrophils # 6.6 (1.6-8.9) K/mcL BMP 11/08/18 02:35 Sodium 137 Potassium 4.5 Chloride 102 Carbon Dioxide 28 BUN 15 Creatinine 0.70 Glucose 121 H Calcium 8.6 Cardiac Enzymes 11/08/18 Range/Units 12:19 Troponin I < 0.03 (< 0.04) ng/mL - ABG Interpretation ABG results: PT/INR, D-dimer PT 12.9 Seconds (9.4-12.1) H 11/02/18 13:43 - Impressions Impressions Chest CT 11/02/18 20:18 IMPRESSION: Moderate pericardial effusion increased in amount compared to prior examination with possible pericardial thickening. Findings may represent pericarditis. Bilateral layering pleural effusions, new since prior examination, likely related to CHF from the suspected pericarditis and pericardial effusion. Small subcentimeter mediastinal lymph nodes, likely reactive. No pathologically enlarged lymphadenopathy. Incidentally noted benign 15 mm left adrenal adenoma. Superior endplate T10 and T11 compression fractures, stable since at least 10/08/2018 but possibly chronic. D/ / 11/02/2018 22:31:38 Ramu Lopez MD / drake Interpreting Provider: Ramu Lopez MD Consult Discharge Plan - Plan Referrals: Liss Ching CNP [Primary Care Provider] - (2) Anemia Qualifiers: Anemia type: unspecified type Qualified Code(s): D64.9 - Anemia, unspecified (3) Leukocytosis Qualifiers: Qualified Code(s): D72.829 - Elevated white blood cell count, unspecified (5) COPD (chronic obstructive pulmonary disease) Qualifiers: COPD type: unspecified COPD Qualified Code(s): J44.9 - Chronic obstructive pulmonary disease, unspecified
--- NOTE | 2018-11-08 16:24 | Electrocardiograph Report ---
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
--- NOTE | 2018-11-08 16:37 | Electrocardiograph Report ---
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
--- NOTE | 2018-11-08 16:48 | Electrocardiograph Report ---
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
--- NOTE | 2018-11-08 17:02 | Electrocardiograph Report ---
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
[2018-11-08] MEDS: diazePAM 5 MG TABLET PO SCH (20:52)
[2018-11-08] MEDS: *HR* Metoprolol 5 MG/5 ML VIAL IVP PRN (23:48)
[2018-11-09] MEDS ORDERED: *HR* Metoprolol 5 MG/5 ML VIAL IVP ONE (01:13)
[2018-11-09] MEDS: *HR* HYDROcodone/Acet 10/325 mg TABLET PO SCH ×3 (05:09→18:26)
[2018-11-09] MEDS: tiZANidine 4 MG TABLET PO SCH ×3 (05:10→18:26)
[2018-11-09 06:54] LABS: Basophils # 0.1 K/mcL (0.0-0.2); Basophils % 0.6 %; Eosinophils # 0.5 K/mcL (0.0-0.6); Eosinophils % 4.4 %; Hematocrit 27.6 % (35.3-44.9); Hemoglobin 8.5 g/dL (11.5-15.4); Immature Granulocytes % 0.4 % (0-4); Lymphocytes # 2.3 K/mcL (0.6-4.6); Lymphocytes % 21.3 %; Mean Corpuscular HGB Conc 30.8 g/dL (31.6-35.5); Mean Corpuscular Hemoglobin 29.4 pg (28.0-33.3); Mean Corpuscular Volume 95.5 fL (83.0-100.0); Mean Platelet Volume 8.5 fL (9.4-12.4); Monocytes % 9.4 %; Neutrophils # 6.9 K/mcL (1.6-8.9); Platelet Count 538 K/mcL (140-400); Red Blood Count 2.89 M/mcL (3.82-4.97); Red Cell Distribution Width 13.8 % (11.5-14.5); Segmented Neutrophils % 63.9 %; White Blood Count 10.8 K/mcL (4.3-11.1)
[2018-11-09 07:13] LABS: BUN/Creatinine Ratio 22 (6-26); Blood Urea Nitrogen 18 mg/dL (8-23); Calcium 8.8 mg/dL (8.6-10.3); Carbon Dioxide 31 mEq/L (23-29); Chloride 101 mEq/L (98-107); Glucose 121 mg/dL (70-105); Osmolality,Calculated 289 (280-300); Potassium 4.5 mEq/L (3.5-5.1); Sodium 138 mEq/L (136-145); eGFR For African Americans > 60 (> 60); eGFR For Non-African Americans > 60 (> 60)
[2018-11-09] MEDS: Budesonide/Formoterol 160/4.5 1 PUFF INH IH SCH ×2 (07:40→19:39)
[2018-11-09] MEDS: Colchicine 0.6 MG TABLET PO SCH (09:11)
[2018-11-09] MEDS: levETIRAcetam 250 MG TABLET PO SCH ×4 (09:11→21:12)
[2018-11-09] MEDS: Cholecalciferol (D-3) 1,000 UNIT (25MCG) TABLET PO SCH (09:12)
[2018-11-09] MEDS: Lactobacillus 1 EACH CAP.SPRINK PO SCH ×2 (09:12→21:12)
[2018-11-09] MEDS ORDERED: Ketorolac 30 MG/ML VIAL IVP ONE (11:23)
[2018-11-09] MEDS: *HR* Metoprolol 5 MG/5 ML VIAL IVP PRN (11:25)
[2018-11-09] MEDS: Nitroglycerin 0.4 MG TAB.SUBL SL PRN (11:29)
--- NOTE | 2018-11-09 12:43 | Cardiology Progress Note ---
Date of Encounter: 11/09/18 Time of Encounter: 13:00 Assessment and Plan (1) Pericardial effusion Current Visit: Yes Status: Acute Per Cardiology: Previous medical records reviewed : S/p subxiphoid pericardial window on 10/23/2018 with removal of 400ml fluid. Seen by CT surgery. ID following. Consider further workup to identify source of effusion. On colchicine for possible pericarditis. Patient now with a flutter with RVR. Discussed and reviewed with Dr. Blum, will attempt repeat limited echo to assess the effusion-- Will go ahead and proceed despite heart rate not being controlled. Patient is DNR/DNI/CCA. (2) Atrial flutter with rapid ventricular response Current Visit: Yes Status: Acute Per Cardiology: Apparent new onset atrial flutter, patient denies known history. However upon review patient did have atrial flutter September 2017 of which cardiology was not consulted. Currently a flutter fluctuating 80s to 140s on telemetry. Off Cardizem drip. Status post digoxin load, however only received 3 of 4 ordered doses-- RN reports forth dose held due to bradycardia. On Lopressor 50mg by mouth twice a day. Current systolic blood pressures in the 130s. Will increase Lopressor to 75 mg by mouth twice a day continue to attempt rate control. Again will repeat echo to reassess effusion for possible underlying cause. (3) Anemia Current Visit: Yes Status: Acute Per Cardiology: No previous H&H noted prior to recent hospital stays the past 2 months. Did receive blood transfusion earlier during hospital stay. Currently not on anticoagulation. Patient aware of increased stroke risk. We will need to evaluate long-term anticoagulation prior to discharge. Currently stable. Qualifiers: Anemia type: unspecified type Qualified Code(s): D64.9 - Anemia, unspecified Discussion w patient/family: The assessment and plan as outlined above was discussed with the patient and/or family members who expressed understanding and agreement. All questions were answered. Thank you for involving us in the care of your patient. Please call with any questions. Subjective Principal diagnosis: Aflutter with RVR Interval history: Seen this morning with no concerns or complaints. Does report some shortness of breath at rest. Patient reevaluated this afternoon and indicates developed left-sided chest discomfort with neck pain when she laid on her left side was resolved with repositioning and pain medication. She currently denies any chest pain. Denies any palpitations. Objective Vital Signs, Last 4 Hours Temp Pulse Resp BP Pulse Ox 11/09/18 10:57 97.9 F 106 16 139/87 96 General: Conversant, No Apparent Distress HEENT: Atraumatic, Normocephaly, Mucus Membranes Moist Neck: No JVD, Normal carotid pulses Cardiac: No Murmur, Other (Irregularly irregular) Lungs: Normal Breath Sounds, No Wheeze, Rales, Rhonchi Neuro: Alert and responsive, No focal deficits noted Abdomen: Soft, Non-Tender Skin: No rashes noted on visualized skin Musculoskeletal: No Chest Wall Tenderness Extremities: No Clubbing, No Cyanosis, No Edema, Normal Pulses Results 11/09/18 06:35 11/09/18 06:35 Lab Results Laboratory Tests 11/08/18 11/09/18 11/09/18 12:19 06:35 06:35 Hgb 8.5 L Hct 27.6 L Creatinine 0.82 Est GFR (Non-Af Amer) > 60 Troponin I < 0.03 Active Medications Acetaminophen (Tylenol) 325 mg PO Q4HR PRN PRN Reason: Pain Stop: 05/06/19 17:35 Last Admin: 11/07/18 03:45 Dose: 325 mg Documented by: Hydrocodone Bitart/Acetaminophen ([place] 10-325 Mg) 1 each PO 0000,0600,1200,1800 [facility] Stop: 05/05/19 03:46 Last Admin: 11/09/18 11:25 Dose: 1 each Documented by: Albuterol/Ipratropium (Duoneb) 3 ml IH [id number] PRN PRN Reason: Shortness Of Breath/Wheezing Stop: 05/06/19 18:41 Last Admin: 11/08/18 12:05 Dose: 3 ml Documented by: Budesonide/Formoterol Fumarate (Symbicort) 2 puff IH BIDR [facility]; Protocol Stop: 05/05/19 10:01 Last Admin: 11/09/18 07:40 Dose: 2 puff Documented by: Colchicine (Colcrys) 0.6 mg PO DAILY [facility] Stop: 05/05/19 15:16 Last Admin: 11/09/18 09:11 Dose: 0.6 mg Documented by: Diazepam (Valium) 5 mg PO HS [facility] Stop: 05/05/19 21:01 Last Admin: 11/08/18 20:52 Dose: 5 mg Documented by: Docusate Sodium (Colace) 100 mg PO BID@0800,1700 [facility]; Protocol Stop: 05/06/19 12:01 Last Admin: 11/09/18 09:12 Dose: 100 mg Documented by: Duloxetine HCl (Cymbalta) 60 mg PO DAILY [facility] Stop: 05/05/19 09:01 Last Admin: 11/09/18 09:11 Dose: 60 mg Documented by: Ferrous Sulfate (Ferrous Sulfate) 325 mg PO DAILY@0800 [facility] Stop: 05/11/19 08:01 Last Admin: 11/09/18 09:12 Dose: 325 mg Documented by: Sodium Chloride (0.9 % Sodium Chloride) 500 mls @ 1,000 mls/hr IVC .Q30M PRN PRN Reason: Blood Pressure Lactobacillus Acidophilus/Rhamnosus (Culturelle) 1 each PO BID [facility] Stop: 05/05/19 09:01 Last Admin: 11/09/18 09:12 Dose: 1 each Documented by: Levetiracetam (Keppra) 500 mg PO QID [facility] Stop: 05/05/19 14:01 Last Admin: 11/09/18 09:11 Dose: 500 mg Documented by: Metoprolol Tartrate (Lopressor) 5 mg IVP Q6HR PRN PRN Reason: Tachyarrhythmias Stop: 05/09/19 18:01 Last Admin: 11/09/18 11:25 Dose: 5 mg Documented by: Metoprolol Tartrate (Lopressor) 75 mg PO BID [facility] Stop: 05/11/19 21:01 Montelukast Sodium (Singulair) 10 mg PO DAILY@2100 [facility] Stop: 05/05/19 21:01 Last Admin: 11/08/18 20:52 Dose: 10 mg Documented by: Naloxone HCl (Narcan) 0.4 mg IVP Q2MPRN PRN PRN Reason: SEE COMMENTS Stop: 05/04/19 23:13 Nitroglycerin (Nitroglycerin) 0.4 mg SL Q5MPRN PRN PRN Reason: Chest Pain Stop: 05/10/19 12:10 Last Admin: 11/09/18 11:29 Dose: 0.4 mg Documented by: Tizanidine HCl (Zanaflex) 4 mg PO 0000,0600,1200,1800 [facility] Stop: 05/05/19 03:46 Last Admin: 11/09/18 05:10 Dose: 4 mg Documented by: Vitamin D (Vitamin D) 1,000 unit PO DAILY [facility] Stop: 05/05/19 09:01 Last Admin: 11/09/18 09:12 Dose: 1,000 unit Documented by: - Imaging and Cardiology Echo: pending - VTE Documentation of Mechanical Device: Intermittent pneumatic compression device Consult Discharge Plan - Plan Referrals: Liss Ching CNP [Primary Care Provider] -
--- NOTE | 2018-11-09 15:00 | Internal Med Progress Note ---
Hospitalist Progress Note - Encounter Date of Encounter: 11/09/18 Time of Encounter: 08:10 - Subjective Interval History: No acute events overnight. Patient states that she feels fine but does not understand what is going on with her heart. She denies chest pain, palpitations and shortness of breath. - Exam Vitals: Temp Pulse Resp BP Pulse Ox 36.6 C 106 16 139/87 96 11/09/18 10:57 11/09/18 10:57 11/09/18 10:57 11/09/18 10:57 11/09/18 10:57 Exam: GENERAL: Not in distress. Alert and Oriented HEENT: EOMI, PERRLA MOUTH: Moist mucosa NECK:No JVD, No lymph nodes. CHEST AND LUNGS: Normal breath sounds, no wheezes or crackles HEART: S1 and S2 normal, rapid regular rate, no murmurs ABDOMEN: Soft, nontender, no organomegaly SKIN: Normal color, no rahses, no lesions EXTREMITIES: No deformity, no edema, no tenderness, no joint swelling or clubbing NEUROLOGICAL: Normal cognition, normal motor and sensory exam Pdyche: Patient looks more cheerful today. - Assessment and Plan (1) Atrial flutter with rapid ventricular response Current Visit: Yes Status: Acute Assessment and Plan: Rate fluctuates between 50s and 130s Cardio has seen and reviewed. Will increase Lopressor to 75mg bid. Cardio plans to reassess pericardial effusion for possible underlying cause. (2) Anemia Current Visit: Yes Status: Acute Assessment and Plan: Hb of 8.5g/dl and stable. Patient has normocytic anemia that seems chronic Patient states that she has been anemic for about 20 years. She has never had a colonoscopy, mammogram or any other age appropriate screening because she personally has never wanted them. Iron panel shows a mixed picture of iron deficiency anemia and anemia of chronic disease transferrin is 227 and iron concentration is 11 On PO iron supplementation Awaiting FOBT. (3) Leukocytosis Current Visit: Yes Status: Acute Assessment and Plan: WBC downtrending. 10.8 today. Patient is afebrile, not tachycardic, and normotensive There is no growth on blood culture Lilely reactive to pericarditis. (4) Pericardial effusion Current Visit: Yes Status: Acute Assessment and Plan: Cardiology plans to reassess effusion with limited echo for possible underlying cause (5) COPD (chronic obstructive pulmonary disease) Current Visit: No Status: Chronic Assessment and Plan: Patient currently denies shortness of breath, wheezing and cough We will give when necessary breathing treatments Monitor (6) Thrombocytosis Current Visit: Yes Status: Acute Assessment and Plan: Currently at 538 frm 612 yesterday. Likely reactive to Pericarditis. DVT Prophylaxis: SCD - Time Spent with Patient Total time spent is greater than 50% in coordination of care (as documented) at patient's floor/unit and/or counseling patient: Internal Medicine: Result - Labs CBC & Chem 7: 11/09/18 06:35 11/09/18 06:35 Labs: Short CBC 11/09/18 Range/Units 06:35 WBC 10.8 (4.3-11.1) K/mcL Hgb 8.5 L (11.5-15.4) g/dL Hct 27.6 L (35.3-44.9) % Plt Count 538 H (140-400) K/mcL Neutrophils # 6.9 (1.6-8.9) K/mcL BMP 11/09/18 06:35 Sodium 138 Potassium 4.5 Chloride 101 Carbon Dioxide 31 H BUN 18 Creatinine 0.82 Glucose 121 H Calcium 8.8 - ABG Interpretation ABG results: PT/INR, D-dimer PT 12.9 Seconds (9.4-12.1) H 11/02/18 13:43 - VTE Documentation of Mechanical Device: Intermittent pneumatic compression device Consult Discharge Plan - Plan Referrals: Liss Ching CNP [Primary Care Provider] - (2) Anemia Qualifiers: Anemia type: unspecified type Qualified Code(s): D64.9 - Anemia, unspecified (3) Leukocytosis Qualifiers: Qualified Code(s): D72.829 - Elevated white blood cell count, unspecified (5) COPD (chronic obstructive pulmonary disease) Qualifiers: COPD type: unspecified COPD Qualified Code(s): J44.9 - Chronic obstructive pulmonary disease, unspecified
--- NOTE | 2018-11-09 17:20 | Event Note ---
Date of Encounter: 11/09/18 Time of Encounter: 17:20 - Cardiology Event Note Echo results noted: Impressions: LVEF 50-55%. Moderate concentric left ventricular hypertrophy. Normal right ventricular structure and function. Very small pericardial effusion anterior to RV without echocardiographic evidence of tamponade. Left Ventricular Wall Motion: Rest Echo Findings All wall segments showed normal motion. Continue with rate control strategy.
[2018-11-09] MEDS: Ipratropium/Albuterol Neb 3 ML IH PRN (19:39)
[2018-11-09] MEDS: diazePAM 5 MG TABLET PO SCH (21:12)
[2018-11-10] MEDS: *HR* HYDROcodone/Acet 10/325 mg TABLET PO SCH ×5 (00:35→23:55)
[2018-11-10] MEDS: tiZANidine 4 MG TABLET PO SCH ×5 (00:36→23:56)
[2018-11-10] MEDS: Acetaminophen 325 MG TABLET PO PRN (00:36)
[2018-11-10 06:02] LABS: Basophils # 0.1 K/mcL (0.0-0.2); Basophils % 0.6 %; Eosinophils # 0.5 K/mcL (0.0-0.6); Eosinophils % 3.3 %; Hematocrit 28.2 % (35.3-44.9); Hemoglobin 9.1 g/dL (11.5-15.4); Immature Granulocytes % 0.6 % (0-4); Lymphocytes # 2.9 K/mcL (0.6-4.6); Lymphocytes % 21.4 %; Mean Corpuscular HGB Conc 32.3 g/dL (31.6-35.5); Mean Corpuscular Hemoglobin 29.7 pg (28.0-33.3); Mean Corpuscular Volume 92.2 fL (83.0-100.0); Mean Platelet Volume 8.9 fL (9.4-12.4); Monocytes # 1.3 K/mcL (0.0-1.3); Monocytes % 9.6 %; Neutrophils # 8.9 K/mcL (1.6-8.9); Platelet Count 551 K/mcL (140-400); Red Blood Count 3.06 M/mcL (3.82-4.97); Red Cell Distribution Width 13.7 % (11.5-14.5); Segmented Neutrophils % 64.5 %; White Blood Count 13.7 K/mcL (4.3-11.1)
[2018-11-10 06:30] LABS: BUN/Creatinine Ratio 24 (6-26); Blood Urea Nitrogen 26 mg/dL (8-23); Calcium 8.7 mg/dL (8.6-10.3); Carbon Dioxide 30 mEq/L (23-29); Chloride 98 mEq/L (98-107); Glucose 108 mg/dL (70-105); Osmolality,Calculated 291 (280-300); Potassium 4.2 mEq/L (3.5-5.1); Sodium 138 mEq/L (136-145); eGFR For African Americans > 60 (> 60); eGFR For Non-African Americans 50 (> 60)
[2018-11-10] MEDS: Budesonide/Formoterol 160/4.5 1 PUFF INH IH SCH ×2 (07:20→19:40)
[2018-11-10] MEDS: Ipratropium/Albuterol Neb 3 ML IH PRN (07:21)
--- NOTE | 2018-11-10 08:30 | Internal Med Progress Note ---
Hospitalist Progress Note - Encounter Date of Encounter: 11/10/18 Time of Encounter: 11:00 - Subjective Interval History: No acute events overnight - Exam Vitals: Temp Pulse Resp BP Pulse Ox 97.5 F L 147 12 115/78 100 11/10/18 07:27 11/10/18 07:27 11/10/18 07:27 11/10/18 07:27 11/10/18 07:27 Exam: GENERAL: Not in distress. Alert and Oriented HEENT: EOMI, PERRLA MOUTH: Moist mucosa NECK:No JVD, No lymph nodes. CHEST AND LUNGS: Normal breath sounds, no wheezes or crackles HEART: S1 and S2 normal, rapid regular rate, no murmurs ABDOMEN: Soft, nontender, no organomegaly SKIN: Normal color, no rahses, no lesions EXTREMITIES: No deformity, no edema, no tenderness, no joint swelling or clubbing NEUROLOGICAL: Normal cognition, normal motor and sensory exam Pdyche: Patient looks more cheerful today. - Assessment and Plan (1) Atrial flutter with rapid ventricular response Current Visit: Yes Status: Acute Assessment and Plan: Ratewas persistently in the 120-140s this am. Cardio has seen and reviewed. On lopressor 75mg bid. Gave one dose of IV cardizem and IV lopressor this am HR went to the 70s but is back in the 130s. Has been started on po cardizem (2) Pericardial effusion Current Visit: Yes Status: Acute Assessment and Plan: Repeat echo on 11/09 showed no very small pericardial effusion No acute CT surgery intervention indicated. continue colchicine (3) Anemia Current Visit: Yes Status: Acute Assessment and Plan: Hb of 8.5g/dl and stable. Outpatient follow up. (4) COPD (chronic obstructive pulmonary disease) Current Visit: Yes Status: Chronic Assessment and Plan: Patient currently denies shortness of breath, wheezing and cough We will give when necessary breathing treatments Monitor (5) Leukocytosis Current Visit: Yes Status: Acute Assessment and Plan: WBC downtrending. 10.8 today. Patient is afebrile, not tachycardic, and normotensive There is no growth on blood culture Likely reactive to pericarditis. (6) Thrombocytosis Current Visit: Yes Status: Acute Assessment and Plan: Currently at 538 frm 612 yesterday. Likely reactive to Pericarditis. - Time Spent with Patient Total time spent is greater than 50% in coordination of care (as documented) at patient's floor/unit and/or counseling patient: Internal Medicine: Result - Labs CBC & Chem 7: 11/10/18 05:15 11/10/18 05:15 Labs: Short CBC 11/10/18 Range/Units 05:15 WBC 13.7 H (4.3-11.1) K/mcL Hgb 9.1 L (11.5-15.4) g/dL Hct 28.2 L (35.3-44.9) % Plt Count 551 H (140-400) K/mcL Neutrophils # 8.9 (1.6-8.9) K/mcL BMP 11/10/18 05:15 Sodium 138 Potassium 4.2 Chloride 98 Carbon Dioxide 30 H BUN 26 H Creatinine 1.08 Glucose 108 H Calcium 8.7 - ABG Interpretation ABG results: PT/INR, D-dimer PT 12.9 Seconds (9.4-12.1) H 11/02/18 13:43 - Impressions Impressions Echocardiogram Limited Views 11/08/18 14:00 Impressions: LVEF 50-55%. Moderate concentric left ventricular hypertrophy. Normal right ventricular structure and function. Very small pericardial effusion anterior to RV without echocardiographic evidence of tamponade. Left Ventricular Wall Motion: Rest Echo Findings All wall segments showed normal motion. Findings: Study Quality * Technically sub-optimal due to clinical status. ECG Findings * Tachycardia, sinus or Aflutter RVR. Left Ventricle * LVEF 50-55%. * Normal LV chamber size. * Moderate concentric left ventricular hypertrophy. Right Ventricle * Normal right ventricular structure and function. Left Atrium * Moderately dilated left atrium. Right Atrium * Mildly dilated right atrium. Pericardium * There is a very small pericardial effusion (3-6mm) anterior to RV. * There is no echocardiographic evidence of tamponade. - VTE Documentation of Mechanical Device: Intermittent pneumatic compression device Consult Discharge Plan - Plan Referrals: Liss Ching, JAMES [Primary Care Provider] - (3) Anemia Qualifiers: Anemia type: unspecified type Qualified Code(s): D64.9 - Anemia, unspecified (4) COPD (chronic obstructive pulmonary disease) Qualifiers: COPD type: unspecified COPD Qualified Code(s): J44.9 - Chronic obstructive pulmonary disease, unspecified (5) Leukocytosis Qualifiers: Qualified Code(s): D72.829 - Elevated white blood cell count, unspecified
[2018-11-10] MEDS: Lactobacillus 1 EACH CAP.SPRINK PO SCH ×2 (09:19→19:57)
[2018-11-10] MEDS: levETIRAcetam 250 MG TABLET PO SCH ×5 (09:19→19:49)
[2018-11-10] MEDS: Colchicine 0.6 MG TABLET PO SCH (09:19)
[2018-11-10] MEDS: Cholecalciferol (D-3) 1,000 UNIT (25MCG) TABLET PO SCH (09:19)
[2018-11-10] MEDS: *HR* Metoprolol 5 MG/5 ML VIAL IVP PRN (10:31)
--- NOTE | 2018-11-10 15:29 | Cardiology Progress Note ---
Date of Encounter: 11/10/18 Time of Encounter: 15:30 Assessment and Plan (1) Pericardial effusion Current Visit: Yes Status: Acute Per Cardiology: Previous medical records reviewed : S/p subxiphoid pericardial window on 10/23/2018 with removal of 400ml fluid. Most recent ECHO: Impressions: LVEF 50-55%. Moderate concentric left ventricular hypertrophy. Normal right ventricular structure and function. Very small pericardial effusion anterior to RV without echocardiographic evidence of tamponade. Left Ventricular Wall Motion: Rest Echo Findings All wall segments showed normal motion. Patient is DNR/DNI/CCA. (2) Atrial flutter with rapid ventricular response Current Visit: Yes Status: Acute Per Cardiology: Apparent new onset atrial flutter, patient denies known history. However, upon review patient did have atrial flutter September 2017 of which cardiology was not consulted. Off Cardizem drip. Status post digoxin load, however only received 3 of 4 ordered doses-- RN reports fourth dose held due to bradycardia. Seen earlier today with atrial flutter in the 140s on telemetry. Received IV Lopressor and IV Cardizem per primary service today. Patient did have episode of bradycardia and noted to have slow heart rates which recovered to a flutter in the 70s. Patient reevaluated: in a flutter in the 80s to 90s. Currently a flutter in the 60s to 70s. On Lopressor 75mg by mouth twice a day. Current systolic blood pressures in the 130s. Adding Cardizem 30 mg by mouth every 6 hours. Continue with rate control strategy. (3) Anemia Current Visit: Yes Status: Acute Per Cardiology: No previous H&H noted prior to recent hospital stays the past 2 months. Did receive blood transfusion earlier during hospital stay. Currently not on anticoagulation. Patient aware of increased stroke risk. We will need to evaluate long-term anticoagulation prior to discharge. Currently stable. Qualifiers: Anemia type: unspecified type Qualified Code(s): D64.9 - Anemia, unspecified (4) Chest pain Current Visit: Yes Status: Acute Per Cardiology: Patient experienced another episode of atypical chest discomfort today, today noted to be right-sided pressure and soreness improved with tramadol. The past 2 days she has experienced some left-sided chest discomfort with left shoulder and neck pain also improved with tramadol. Troponins net negative 2 for the past few days. EF preserved on echo. Qualifiers: Chest pain type: unspecified Qualified Code(s): R07.9 - Chest pain, unspecified Discussion w patient/family: The assessment and plan as outlined above was discussed with the patient and/or family members who expressed understanding and agreement. All questions were answered. Thank you for involving us in the care of your patient. Please call with any questions. Subjective Principal diagnosis: Aflutter with RVR Interval history: Patient seen multiple times today. Notified by nursing staff today by multiple concerns regarding elevated heart rates. Patient initially seen this morning asymptomatic with no concerns. Did develop an episode this afternoon of right- sided chest pain after receiving IV Cardizem ordered by primary service. Upon evaluation chest pain symptoms resolved. Patient reevaluate later after receiving tramadol and symptoms completely resolved and sleeping quietly. Objective Vital Signs, Last 4 Hours Pulse Resp BP 11/10/18 12:53 130 18 116/78 11/10/18 11:50 72 20 128/75 11/10/18 11:40 68 16 130/72 General: Conversant, No Apparent Distress HEENT: Atraumatic, Normocephaly, Mucus Membranes Moist Neck: No JVD, Normal carotid pulses Cardiac: No Murmur, Other (Irregularly irregular) Lungs: Normal Breath Sounds, No Wheeze, Rales, Rhonchi Neuro: Alert and responsive, No focal deficits noted Abdomen: Soft, Non-Tender Skin: No rashes noted on visualized skin Musculoskeletal: No Chest Wall Tenderness Extremities: No Clubbing, No Cyanosis, No Edema, Normal Pulses Results 11/10/18 05:15 11/10/18 05:15 Lab Results Laboratory Tests 11/10/18 11/10/18 11/10/18 05:15 05:15 11:49 Hgb 9.1 L Hct 28.2 L Creatinine 1.08 Est GFR (Non-Af Amer) 50 L Troponin I TSH 3.760 11/10/18 11:49 Hgb Hct Creatinine Est GFR (Non-Af Amer) Troponin I 0.03 TSH Impressions Echocardiogram Limited Views 11/08/18 14:00 Impressions: LVEF 50-55%. Moderate concentric left ventricular hypertrophy. Normal right ventricular structure and function. Very small pericardial effusion anterior to RV without echocardiographic evidence of tamponade. Left Ventricular Wall Motion: Rest Echo Findings All wall segments showed normal motion. Findings: Study Quality * Technically sub-optimal due to clinical status. ECG Findings * Tachycardia, sinus or Aflutter RVR. Left Ventricle * LVEF 50-55%. * Normal LV chamber size. * Moderate concentric left ventricular hypertrophy. Right Ventricle * Normal right ventricular structure and function. Left Atrium * Moderately dilated left atrium. Right Atrium * Mildly dilated right atrium. Pericardium * There is a very small pericardial effusion (3-6mm) anterior to RV. * There is no echocardiographic evidence of tamponade. Chest X-Ray 11/10/18 11:57 IMPRESSION: Slightly increasing small bilateral pleural effusions with adjacent atelectasis. D/ / Maricruz Lord MD / Maricruz Lord MD Interpreting Provider: Maricruz Lord MD Active Medications Acetaminophen (Tylenol) 325 mg PO Q4HR PRN PRN Reason: Pain Stop: 05/06/19 17:35 Last Admin: 11/10/18 00:36 Dose: 325 mg Documented by: Hydrocodone Bitart/Acetaminophen (Havana 10-325 Mg) 1 each PO 0000,0600,1200,1800 [facility] Stop: 05/05/19 03:46 Last Admin: 11/10/18 12:02 Dose: 1 each Documented by: Albuterol/Ipratropium (Duoneb) 3 ml IH [id number] PRN PRN Reason: Shortness Of Breath/Wheezing Stop: 05/06/19 18:41 Last Admin: 11/10/18 07:21 Dose: 3 ml Documented by: Budesonide/Formoterol Fumarate (Symbicort) 2 puff IH BIDR [facility]; Protocol Stop: 05/05/19 10:01 Last Admin: 11/10/18 07:20 Dose: 2 puff Documented by: Colchicine (Colcrys) 0.6 mg PO DAILY [facility] Stop: 05/05/19 15:16 Last Admin: 11/10/18 09:19 Dose: 0.6 mg Documented by: Diazepam (Valium) 5 mg PO HS [facility] Stop: 05/05/19 21:01 Last Admin: 11/09/18 21:12 Dose: 5 mg Documented by: Diltiazem HCl (Cardizem) 30 mg PO Q6HR [facility] Stop: 05/12/19 15:26 Docusate Sodium (Colace) 100 mg PO BID@0800,1700 [facility]; Protocol Stop: 05/06/19 12:01 Last Admin: 11/10/18 09:19 Dose: 100 mg Documented by: Duloxetine HCl (Cymbalta) 60 mg PO DAILY [facility] Stop: 05/05/19 09:01 Last Admin: 11/10/18 09:19 Dose: 60 mg Documented by: Ferrous Sulfate (Ferrous Sulfate) 325 mg PO DAILY@0800 [facility] Stop: 05/11/19 08:01 Last Admin: 11/10/18 09:19 Dose: 325 mg Documented by: Lactobacillus Acidophilus/Rhamnosus (Culturelle) 1 each PO BID [facility] Stop: 05/05/19 09:01 Last Admin: 11/10/18 09:19 Dose: 1 each Documented by: Levetiracetam (Keppra) 500 mg PO QID [facility] Stop: 05/05/19 14:01 Last Admin: 11/10/18 12:07 Dose: Not Given Documented by: Metoprolol Tartrate (Lopressor) 5 mg IVP Q6HR PRN PRN Reason: Tachyarrhythmias Stop: 05/09/19 18:01 Last Admin: 11/10/18 10:31 Dose: 5 mg Documented by: Metoprolol Tartrate (Lopressor) 75 mg PO BID [facility] Stop: 05/11/19 21:01 Last Admin: 11/10/18 09:20 Dose: 75 mg Documented by: Montelukast Sodium (Singulair) 10 mg PO DAILY@2100 [facility] Stop: 05/05/19 21:01 Last Admin: 11/09/18 21:13 Dose: 10 mg Documented by: Naloxone HCl (Narcan) 0.4 mg IVP Q2MPRN PRN PRN Reason: SEE COMMENTS Stop: 05/04/19 23:13 Nitroglycerin (Nitroglycerin) 0.4 mg SL Q5MPRN PRN PRN Reason: Chest Pain Stop: 05/10/19 12:10 Last Admin: 11/09/18 11:29 Dose: 0.4 mg Documented by: Tizanidine HCl (Zanaflex) 4 mg PO 0000,0600,1200,1800 [facility] Stop: 05/05/19 03:46 Last Admin: 11/10/18 12:04 Dose: 4 mg Documented by: Vitamin D (Vitamin D) 1,000 unit PO DAILY [facility] Stop: 05/05/19 09:01 Last Admin: 11/10/18 09:19 Dose: 1,000 unit Documented by: - Imaging and Cardiology Chest Xray: report reviewed Echo: report reviewed - VTE Documentation of Mechanical Device: Intermittent pneumatic compression device Consult Discharge Plan - Plan Referrals: Liss Ching CNP [Primary Care Provider] -
[2018-11-10] MEDS: diazePAM 5 MG TABLET PO SCH (19:51)
--- NOTE | 2018-11-10 22:10 | Electrocardiograph Report ---
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
--- NOTE | 2018-11-10 22:12 | Electrocardiograph Report ---
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
[2018-11-11] MEDS: Acetaminophen 325 MG TABLET PO PRN (03:29)
[2018-11-11] MEDS: *HR* HYDROcodone/Acet 10/325 mg TABLET PO SCH ×3 (05:06→17:52)
[2018-11-11] MEDS: tiZANidine 4 MG TABLET PO SCH ×3 (05:06→17:52)
[2018-11-11 05:32] LABS: Basophils # 0.1 K/mcL (0.0-0.2); Basophils % 0.7 %; Eosinophils # 0.3 K/mcL (0.0-0.6); Hematocrit 26.7 % (35.3-44.9); Hemoglobin 8.4 g/dL (11.5-15.4); Immature Granulocytes % 0.6 % (0-4); Lymphocytes # 2.6 K/mcL (0.6-4.6); Lymphocytes % 24.6 %; Mean Corpuscular HGB Conc 31.5 g/dL (31.6-35.5); Mean Corpuscular Hemoglobin 29.1 pg (28.0-33.3); Mean Corpuscular Volume 92.4 fL (83.0-100.0); Mean Platelet Volume 8.5 fL (9.4-12.4); Monocytes # 1.1 K/mcL (0.0-1.3); Monocytes % 10.3 %; Neutrophils # 6.4 K/mcL (1.6-8.9); Platelet Count 498 K/mcL (140-400); Red Blood Count 2.89 M/mcL (3.82-4.97); Red Cell Distribution Width 13.8 % (11.5-14.5); Segmented Neutrophils % 60.8 %; White Blood Count 10.4 K/mcL (4.3-11.1)
[2018-11-11 06:51] LABS: BUN/Creatinine Ratio 25 (6-26); Blood Urea Nitrogen 19 mg/dL (8-23); Calcium 8.8 mg/dL (8.6-10.3); Carbon Dioxide 31 mEq/L (23-29); Chloride 100 mEq/L (98-107); Glucose 113 mg/dL (70-105); Osmolality,Calculated 289 (280-300); Potassium 4.2 mEq/L (3.5-5.1); Sodium 138 mEq/L (136-145); eGFR For African Americans > 60 (> 60); eGFR For Non-African Americans > 60 (> 60)
[2018-11-11] MEDS: Lactobacillus 1 EACH CAP.SPRINK PO SCH ×2 (07:42→22:35)
[2018-11-11] MEDS: levETIRAcetam 250 MG TABLET PO SCH ×4 (07:42→22:35)
[2018-11-11] MEDS: Colchicine 0.6 MG TABLET PO SCH (07:42)
[2018-11-11] MEDS: Cholecalciferol (D-3) 1,000 UNIT (25MCG) TABLET PO SCH (07:43)
[2018-11-11] MEDS: Budesonide/Formoterol 160/4.5 1 PUFF INH IH SCH ×2 (07:48→19:55)
--- NOTE | 2018-11-11 08:18 | Internal Med Progress Note ---
Hospitalist Progress Note - Encounter Date of Encounter: 11/11/18 Time of Encounter: 08:00 - Subjective Interval History: Was restarted on a cardizem drip overnight - Exam Vitals: Temp Pulse Resp BP Pulse Ox 97.9 F 72 18 100/62 96 11/11/18 07:03 11/11/18 07:03 11/11/18 07:48 11/11/18 07:03 11/11/18 07:48 Exam: GENERAL: Not in distress. Alert and Oriented HEENT: EOMI, PERRLA MOUTH: Moist mucosa NECK:No JVD, No lymph nodes. CHEST AND LUNGS: Normal breath sounds, no wheezes or crackles HEART: S1 and S2 normal, rapid regular rate, no murmurs ABDOMEN: Soft, nontender, no organomegaly SKIN: Normal color, no rahses, no lesions EXTREMITIES: No deformity, no edema, no tenderness, no joint swelling or clubbing NEUROLOGICAL: Normal cognition, normal motor and sensory exam Pdyche: Patient looks more cheerful today. - Assessment and Plan (1) Atrial flutter with rapid ventricular response Current Visit: Yes Status: Acute Assessment and Plan: Ratewas persistently in the 120-140s this am. Cardio has seen and reviewed. On lopressor 75mg bid. Gave one dose of IV cardizem and IV lopressor this am HR went to the 70s but is back in the 130s. Was started on cardizem drip overnight and converted to po cardizem this am. HR stable. CHADs2 VAsc score is 3. Age, sex. diastolic CHF. Patient however has unexplained anemia and may have had a hemorrhagic pericardial effusion Will hold off anticoagulation, and discuss with cardio. Has also declined colonoscopy and endoscopy in the past (2) Pericardial effusion Current Visit: Yes Status: Acute Assessment and Plan: Repeat echo on 11/09 showed no very small pericardial effusion No acute CT surgery intervention indicated. continue colchicine (3) Anemia Current Visit: Yes Status: Acute Assessment and Plan: Hb of 8.5g/dl and stable. Outpatient follow up. (4) COPD (chronic obstructive pulmonary disease) Current Visit: Yes Status: Chronic Assessment and Plan: Patient currently denies shortness of breath, wheezing and cough We will give when necessary breathing treatments Monitor (5) Leukocytosis Current Visit: Yes Status: Acute Assessment and Plan: WBC downtrending. 10.8 today. Patient is afebrile, not tachycardic, and normotensive There is no growth on blood culture Likely reactive to pericarditis. (6) Thrombocytosis Current Visit: Yes Status: Acute Assessment and Plan: Currently at 538 frm 612 yesterday. Likely reactive to Pericarditis. DVT Prophylaxis: SCD - Time Spent with Patient Total time spent is greater than 50% in coordination of care (as documented) at patient's floor/unit and/or counseling patient: Internal Medicine: Result - Labs CBC & Chem 7: 11/11/18 05:12 11/11/18 05:12 Labs: Short CBC 11/11/18 Range/Units 05:12 WBC 10.4 (4.3-11.1) K/mcL Hgb 8.4 L (11.5-15.4) g/dL Hct 26.7 L (35.3-44.9) % Plt Count 498 H (140-400) K/mcL Neutrophils # 6.4 (1.6-8.9) K/mcL BMP 11/11/18 05:12 Sodium 138 Potassium 4.2 Chloride 100 Carbon Dioxide 31 H BUN 19 Creatinine 0.77 Glucose 113 H Calcium 8.8 Cardiac Enzymes 11/10/18 Range/Units 11:49 Troponin I 0.03 (< 0.04) ng/mL - ABG Interpretation ABG results: PT/INR, D-dimer PT 12.9 Seconds (9.4-12.1) H 11/02/18 13:43 - Impressions Impressions Chest X-Ray 11/10/18 11:57 IMPRESSION: Slightly increasing small bilateral pleural effusions with adjacent atelectasis. D/ / Maricruz Lord MD / Maricruz Lord MD Interpreting Provider: Maricruz Lord MD - VTE Documentation of Mechanical Device: Intermittent pneumatic compression device Consult Discharge Plan - Plan Referrals: Liss Ching, BIOCHEMISTRY SPECIALIST [Primary Care Provider] - (3) Anemia Qualifiers: Anemia type: unspecified type Qualified Code(s): D64.9 - Anemia, unspecified (4) COPD (chronic obstructive pulmonary disease) Qualifiers: COPD type: unspecified COPD Qualified Code(s): J44.9 - Chronic obstructive pulmonary disease, unspecified (5) Leukocytosis Qualifiers: Qualified Code(s): D72.829 - Elevated white blood cell count, unspecified
[2018-11-11 08:43] LABS: Magnesium 1.7 mg/dL (1.6-2.6); Phosphorous 3.8 mg/dL (2.7-4.5)
[2018-11-11] MEDS: Diltiazem CD (24hr) 120 MG CAPSULE PO SCH (09:36)
--- NOTE | 2018-11-11 11:30 | Cardiology Progress Note ---
Date of Encounter: 11/11/18 Time of Encounter: 10:50 Assessment and Plan (1) Atrial flutter with rapid ventricular response Current Visit: Yes Status: Acute Per Cardiology: Apparent new onset atrial flutter; episode in September 2017 of which cardiology was not consulted. 3/4 Digoxin load; 4th dose held d/t bradycardia. Currently back on Cardizem gtt; evaluated this a.m. sinus rhythm, HR 60s, BP 100s/60s. Asymptomatic; will titrate Cardizem gtt off. Continue Cardizem PO 120mg daily. 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 Patient required blood transfusion during stay. Recommend anemia work-up prior to starting AC. Will defer to primary team. Out-pt f/u will be coordinated. Please call with questions or changes. Cardiology will sign off. (2) Pericardial effusion Current Visit: Yes Status: Acute Per Cardiology: Previous medical records reviewed : S/p subxiphoid pericardial window on 10/23/2018 with removal of 400ml fluid. Most recent ECHO: Impressions: LVEF 50-55%. Moderate concentric left ventricular hypertrophy. Normal right ventricular structure and function. Very small pericardial effusion anterior to RV without echocardiographic evidence of tamponade. Continue to monitor. Patient is DNR/DNI/CCA. (3) Anemia Current Visit: Yes Status: Acute Per Cardiology: Apparent chronic issues with anemia; remains not on anticoagulation. Pt did receive blood transfusion earlier during hospital stay. Discussed an increased stroke risk. Recommend anemia workup prior to initiating long-term anticoagulation. Currently stable. Qualifiers: Anemia type: unspecified type Qualified Code(s): D64.9 - Anemia, unspecified (4) Chest pain Current Visit: Yes Status: Acute Per Cardiology: No recurrent chest pain. EF preserved on TTE. Troponin negative. Continue to monitor. Qualifiers: Chest pain type: unspecified Qualified Code(s): R07.9 - Chest pain, u nspecified Discussion w patient/family: The assessment and plan as outlined above was discussed with the patient and/or family members who expressed understanding and agreement. All questions were answered. Thank you for involving us in the care of your patient. Please call with any questions. Subjective Principal diagnosis: Aflutter with RVR Interval history: Patient "feels better" today; states heart rate converted this a.m.; denies chest pain, SOB, and dizziness at this time. Objective Vital Signs, Last 4 Hours Pulse Resp BP Pulse Ox 11/11/18 11:14 73 15 118/68 98 11/11/18 07:48 18 96 General: No Apparent Distress HEENT: Mucus Membranes Moist Cardiac: Reg Rate and Rhythm, Normal S1 and S2, No Murmur Lungs: Normal Breath Sounds Neuro: Alert and responsive Abdomen: Soft Musculoskeletal: No Chest Wall Tenderness Extremities: No Edema, Normal Pulses Results 11/11/18 05:12 11/11/18 05:12 Lab Results 11/10/18 11/10/18 11/11/18 11:49 11:49 05:12 WBC 10.4 Hgb 8.4 L Hct 26.7 L Plt Count 498 H Sodium Potassium Chloride Carbon Dioxide BUN Creatinine Glucose Calcium Magnesium Troponin I 0.03 TSH 3.760 11/11/18 05:12 WBC Hgb Hct Plt Count Sodium 138 Potassium 4.2 Chloride 100 Carbon Dioxide 31 H BUN 19 Creatinine 0.77 Glucose 113 H Calcium 8.8 Magnesium 1.7 Troponin I TSH - Imaging and Cardiology Echo: report reviewed - EKG Interpretation EKG results cardiology: sinus rhythm - VTE Documentation of Mechanical Device: Intermittent pneumatic compression device Consult Discharge Plan - Plan Referrals: Liss Ching, JAMES [Primary Care Provider] -
[2018-11-11] MEDS: Ipratropium/Albuterol Neb 3 ML IH PRN (19:55)
[2018-11-11] MEDS: diazePAM 5 MG TABLET PO SCH (22:36)
[2018-11-12] MEDS: *HR* HYDROcodone/Acet 10/325 mg TABLET PO SCH ×3 (03:28→12:31)
[2018-11-12] MEDS: tiZANidine 4 MG TABLET PO SCH ×3 (03:29→12:31)
[2018-11-12 06:02] LABS: Basophils # 0.1 K/mcL (0.0-0.2); Basophils % 0.4 %; Eosinophils # 0.4 K/mcL (0.0-0.6); Eosinophils % 3.1 %; Hematocrit 25.7 % (35.3-44.9); Immature Granulocytes % 0.4 % (0-4); Lymphocytes # 2.3 K/mcL (0.6-4.6); Lymphocytes % 19.9 %; Mean Corpuscular HGB Conc 31.1 g/dL (31.6-35.5); Mean Corpuscular Hemoglobin 29.2 pg (28.0-33.3); Mean Corpuscular Volume 93.8 fL (83.0-100.0); Mean Platelet Volume 8.7 fL (9.4-12.4); Monocytes % 9.1 %; Neutrophils # 7.7 K/mcL (1.6-8.9); Platelet Count 472 K/mcL (140-400); Red Blood Count 2.74 M/mcL (3.82-4.97); Red Cell Distribution Width 13.8 % (11.5-14.5); Segmented Neutrophils % 67.1 %; White Blood Count 11.5 K/mcL (4.3-11.1)
[2018-11-12 06:19] LABS: BUN/Creatinine Ratio 23 (6-26); Blood Urea Nitrogen 23 mg/dL (8-23); Calcium 8.9 mg/dL (8.6-10.3); Carbon Dioxide 31 mEq/L (23-29); Chloride 98 mEq/L (98-107); Glucose 116 mg/dL (70-105); Osmolality,Calculated 285 (280-300); Potassium 4.2 mEq/L (3.5-5.1); Sodium 135 mEq/L (136-145); eGFR For African Americans > 60 (> 60); eGFR For Non-African Americans 54 (> 60)
[2018-11-12] MEDS: Budesonide/Formoterol 160/4.5 1 PUFF INH IH SCH (07:59)
--- NOTE | 2018-11-12 08:29 | Discharge Summary ---
Date of Encounter: 11/12/18 Time of Encounter: 10:00 - Discharge Diagnosis (1) Atrial flutter with rapid ventricular response Priority: Primary Status: Acute Assessment and Plan: 68-year-old female who presented to [facility] on 11/02/18 with the chief complaint of feeling bloated, dry nose, sore throat, weakness, cough, and increased sputum production. She was recently discharged on 10/28 after being treated for cardiac tamponade and sepsis secondary to pneumonia. On 10/08, she presented with dyspnea, fever, chills x 1 month and new onset chest pain. Was admitted for bronchitis and COPD exacerbation. On 10/22, she presented to the ED again complaining of chest pain, SOB. Had been short of breath intermittently since discharge. Reported having pain in her chest and neck. Found to be in A. fib with RVR. At a rate of 176 on EKG. Was started on a Cardizem drip. There was concern for possible tamponade on due to CT scan showing pericardial effusion. TTE was ordered, which showed evidence of early tamponade. Dr. Louis was consulted for surgical drainage. Was also treated for broad-spectrum antibiotics vancomycin, Zosyn, and Levaquin for sepsis. On 10/23, Pericardial window with drainage of 400 mL of brownish fluid and pericardial biopsy was performed. Was taken to the ICU afterwards and remained on ventilator. Successfully extubated on 10/23. Abx were switched to Zosyn only on 10/25. Chest tubes were d/c'd on 10/27. No underlying etiology of patients pericardial effusion was determined She was assessed on this admission with fatigue weakness and hypotension possibly secondary to recurrence of pericardial effusion with an acute pericarditis and pneumonia. She was started on colchicine and broad spectrum antibiotics. She developed worsening hypotension and was transferred to the ICU. Etiology of hypotension was unclear. Thought unlikely due to infection or tamponade. Possibly due to dehydration/hypovolemia, she improved in the ICU with fluids and no pressors. She was seen by CT surgery and had a repeat echo and determined she did not need to have a pericardial window. Patient's course was complicated by the development of aflutter with RVR. Rate was persistently in the 120-140s. She was started on a cardizem drip and converted to po cardizem and beta blockers and rate is stable. CHADs2 VAsc score is 3. Age, sex. diastolic CHF. Patient however has unexplained anemia and was transfused 1 unit PRBC on this admission. She also may have had a hemorrhagic pericardial effusion and also does not want any invasive procedures like colonscopy and endoscopy. Will therefore only continue aspirin. She has been counseled to follow up with her PCP for further workup if anticoagulation is to be considered. 35 minutes was spent discharging this patient (2) Pericardial effusion Priority: Primary Status: Acute Assessment and Plan: Repeat echo on 11/09 showed no very small pericardial effusion No acute CT surgery intervention indicated. continue colchicine (3) Anemia Priority: Primary Status: Acute Qualifiers: Anemia type: unspecified type Qualified Code(s): D64.9 - Anemia, unspecified (4) COPD (chronic obstructive pulmonary disease) Priority: Primary Status: Chronic Qualifiers: COPD type: unspecified COPD Qualified Code(s): J44.9 - Chronic obstructive pulmonary disease, unspecified (5) Leukocytosis Priority: Primary Status: Acute Qualifiers: Qualified Code(s): D72.829 - Elevated white blood cell count, unspecified (6) Thrombocytosis Priority: Primary Status: Acute Hospital course: Ms. Patel is a 68 year old female - Time Spent with Patient Total time spent providing and/or coordinating discharge services: - Discharge Medications Prescriptions: New Metoprolol [Lopressor] 75 mg PO BID 30 Days #90 tablet Diltiazem CD (24hr) [Cardizem CD] 120 mg PO DAILY #60 cap.er.24h Ferrous Sulfate 325 mg PO DAILY@0800 #90 tablet Docusate [Colace] 100 mg PO BID@0800,1700 #60 capsule Colchicine [Colcrys] 0.6 mg PO DAILY #7 tablet Aspirin 81 mg PO DAILY #30 tab.chew Continued LevETIRAcetam [Keppra] 500 mg PO QID Cholecalciferol (D-3) [Vitamin D] 1,000 unit PO DAILY diazePAM [Valium] 5 mg PO HS Budesonide/Formoterol 160/4.5 [Symbicort 160/4.5] 2 puff IH BIDR 30 Days #1 bottle Lactobacillus [Culturelle] 1 each PO BID #10 cap.sprink HYDROcodone/Acet 10/325 mg [[place] 10-325 mg] 1 tab PO QID Duloxetine HCl [Cymbalta] 60 mg PO DAILY Tizanidine HCl [Zanaflex] 4 mg PO QID Montelukast [Singulair] 10 mg PO DAILY@2100 Home Medications: Duloxetine HCl [Cymbalta] 60 mg PO DAILY 02/27/15 [History] Montelukast [Singulair] 10 mg PO DAILY@2100 10/08/18 [History] Tizanidine HCl [Zanaflex] 4 mg PO QID 10/08/18 [History] LevETIRAcetam [Keppra] 500 mg PO QID 10/22/18 [History] Cholecalciferol (D-3) [Vitamin D] 1,000 unit PO DAILY 10/23/18 [History] diazePAM [Valium] 5 mg PO HS 10/23/18 [History] Budesonide/Formoterol 160/4.5 [Symbicort 160/4.5] 2 puff IH BIDR 30 Days #1 bottle 10/28/18 [Rx] Lactobacillus [Culturelle] 1 each PO BID #10 cap.sprink 10/28/18 [Rx] HYDROcodone/Acet 10/325 mg [[place] 10-325 mg] 1 tab PO QID 11/02/18 [History] Aspirin 81 mg PO DAILY #30 tab.chew 11/12/18 [Rx] Colchicine [Colcrys] 0.6 mg PO DAILY #7 tablet 11/12/18 [Rx] Diltiazem CD (24hr) [Cardizem CD] 120 mg PO DAILY #60 cap.er.24h 11/12/18 [Rx] Docusate [Colace] 100 mg PO BID@0800,1700 #60 capsule 11/12/18 [Rx] Ferrous Sulfate 325 mg PO DAILY@0800 #90 tablet 11/12/18 [Rx] Metoprolol [Lopressor] 75 mg PO BID 30 Days #90 tablet 11/12/18 [Rx] Allergies/Adverse Reactions: Allergy/AdvReac Type Severity Reaction Status Date / Time Sulfa (Sulfonamide AdvReac Nausea Verified 10/23/18 16:28 Antibiotics) Date of admission: 11/03/18 12:34 Primary care physician: Liss Ching Consults: 11/03/18 08:14 Consult to Palliative Care [CONS] Routine Comment: Consulting Provider: Palliative Care [place] Reason for Consult: hospice Call Completed: Yes 11/03/18 09:46 Consult to Cardiothoracic Surgery [CONS] Stat Consulting Provider: Cardiothoracic Surgery [place] Reason for Consult: pericardial effusion, ? temponade Call Completed: Yes 11/03/18 09:50 Consult to Infectious Diseases [CONS] Routine Consulting Provider: Infectious Disease [place] Reason for Consult: pericardial effusion Call Completed: No 11/03/18 09:51 Consult to Cardiology [CONS] Stat Comment: Consulting Provider: Cardiology Antonette Reason for Consult: pericardial effusion, ? temponade vs pericarditis induced Call Completed: Yes 11/03/18 11:13 Consult to Rheumatology [CONS] Routine Consulting Provider: Emanuel Woodard Reason for Consult: pericardial effusion- not malignany Call Completed: Yes 11/03/18 19:06 Consult to Critical Care [CONS] Routine Consulting Provider: Pulm [facility] [place] Reason for Consult: hypotension, pericardial effusion Call Completed: No 11/07/18 10:06 Consult to Cardiology [CONS] Routine Comment: Consulting Provider: Cardiology Pansey Reason for Consult: Atrial flutter with RVR. Hx of recent tamponade with window. Still has mild pericardial effusion. On colchicine. Call Completed: Yes - Constitutional Vitals: Temp Pulse Resp BP Pulse Ox 97.5 F L 64 15 110/50 94 11/12/18 07:22 11/12/18 07:22 11/12/18 07:22 11/12/18 07:22 11/12/18 07:22 Exam: GENERAL: Not in distress. Alert and Oriented HEENT: EOMI, PERRLA MOUTH: Moist mucosa NECK:No JVD, No lymph nodes. CHEST AND LUNGS: Normal breath sounds, no wheezes or crackles HEART: S1 and S2 normal, rapid regular rate, no murmurs ABDOMEN: Soft, nontender, no organomegaly SKIN: Normal color, no rahses, no lesions EXTREMITIES: No deformity, no edema, no tenderness, no joint swelling or clubbing NEUROLOGICAL: Normal cognition, normal motor and sensory exam Pdyche: Patient looks more cheerful today. - Patient Status Disposition: Home Health Service Condition: Good - Discharge Instructions Follow Up With: Liss Ching CNP [Primary Care Provider] - - VTE Documentation of Mechanical Device: Intermittent pneumatic compression device
[2018-11-12] MEDS: Cholecalciferol (D-3) 1,000 UNIT (25MCG) TABLET PO SCH (08:55)
[2018-11-12] MEDS: Diltiazem CD (24hr) 120 MG CAPSULE PO SCH (08:55)
[2018-11-12] MEDS: Colchicine 0.6 MG TABLET PO SCH (08:55)
[2018-11-12] MEDS: Lactobacillus 1 EACH CAP.SPRINK PO SCH (08:56)
[2018-11-12] MEDS: levETIRAcetam 250 MG TABLET PO SCH ×2 (08:57→12:31)
[2018-11-12] MEDS ORDERED: Aspirin 81 MG TAB.CHEW PO SCH (09:00)
[2018-11-12 11:45] VITALS: BP 146/72
== END 2018-11-12 16:02 | disposition home health service (06) | DRG 314 ==
LOC: 2NENU 13:11 → EMEROOARM 13:11 → 2NENU 21:46 → SUATTDRO 11-03 12:34 → ICNU 11-03 21:14 → 2NENU 11-04 16:40
PROVIDERS: ADMIT Internal Medicine; ATTEND Internal Medicine